=== PATIENT | female | born 1935 ===

== ENCOUNTER 2023-09-27 19:58 | Emergency (ER) | payer MEDICARE, MEDICAID, SELFPAY ==
--- NOTE | ~2023-09-27 | CT_ITS ---
EXAMINATION: CT head/brain wo IV con CLINICAL INFORMATION: Reason for Exam falls COMPARISON: None. TECHNIQUE: Contiguous axial imaging was performed from the skull base to vertex without intravenous contrast. Sagittal and coronal reformatted images were obtained. This CT examination was performed using dose optimization techniques as appropriate, variously including the following: * Automated exposure control * Adjustment of mA and/or kV according to patient size (this includes techniques or standardized protocols for targeted exams where dose is matched to indication/reason for exam; i.e. extremities or head) Use of iterative reconstruction technique DLP: 498.11 mGy-cm FINDINGS: Moderate global cerebral volume loss. Confluent periventricular and deep white matter hypoattenuation is nonspecific but likely reflects sequelae of advanced chronic microangiopathy. Age indeterminate lacunar infarcts within the right cerebellum and bilateral deep bustos nuclei which may be chronic can be correlated clinically for acute neurologic deficit and more definitively aged on MRI. No acute intracranial hemorrhage or extra-axial fluid collection. No mass lesion, significant mass effect, or herniation pattern. Dolichoectasia suggestive of chronic hypertension and scattered intracranial calcific atherosclerosis. Lens replacements. Complete dense opacification of an atelectatic right maxillary sinus with lateralized right uncinate process along the inferomedial right orbital wall and inferior descent of the right orbital floor with slight right-sided enophthalmus. Dependent mastoid effusions. Osseous structures are intact. CT/CT head/brain wo IV con IMPRESSION: 1. No CT evidence of acute intracranial injury. 2. Moderate volume loss and advanced white matter disease. Age indeterminate lacunar infarcts within the right cerebellum and bilateral deep bustos nuclei which may be chronic can be correlated clinically for acute neurologic deficit and more definitively aged on MRI. 3. Findings described above suggestive of right-sided silent sinus syndrome. ENT consultation advised.
[2023-09-27 20:03] VITALS: BP 130/90; PULSE 111; O2SAT 96
[2023-09-27 20:11] VITALS: BP 152/74; PULSE 99; RESP 18; TEMP 36.8; O2SAT 97; BMI 17.8
--- NOTE | 2023-09-27 20:15 | ED_ITS ---
HPI - General Adult General Chief complaint: Weakness Stated complaint: FALL WEAK Time Seen by Provider: 09/27/23 20:10 Source: patient and EMS Mode of arrival: EMS Limitations: altered mental status History of Present Illness ED Provider: otto REBOLLAR narrative: Patient 87 years old lives with her granddaughter been feeling increasingly weak falling 2nd fall in last 2 weeks family comes on about declining health in history of dementia patient fell about 2 times last 2 weeks lower down to the knee no head injury Related Data Allergies Allergy/AdvReac Type Severity Reaction Status Date / Time amoxicillin [AMOXICILLIN] Allergy Unknown UNKNOWN Verified 09/27/23 20:14 Review of Systems 2 Review of Systems: Yes all other systems are reviewed and are negative PMFSH Social History Social History Smoked in Last 30 Days: No Use of substances other than those prescribed or required for medical reasons: No Advance Directives: No Advance Directives Information Provided: No Do you have a plan to hurt others: No Plan Physical Exam ED Vital Signs: Vital Signs - 24 hr 09/27/23 20:11 09/27/23 21:48 09/27/23 23:18 Temperature 98.2 F 97.2 F 98.2 F Pulse Rate 99 89 81 Respiratory Rate 18 16 16 Blood Pressure 152/74 H 137/63 130/72 Pulse Oximetry 97 96 97 Oxygen Delivery Method Room Air Room Air Room Air BMI result Body Mass Index 17.8 Appearance: Alert. Oriented X3. No acute distress. Thin built Eyes: PERRLA, No Nystagmus hard of hearing ENT: Pharynx normal. Oral Mucosa moist Neck: Normal inspection. Neck supple. CVS: Normal heart rate and rhythm. Pulses normal. Respiratory: No respiratory distress. Equal air entry bilateral, no wheezing/rales/rhonchi Abdomen: Soft and nontender. Bowel sounds are present, no mass palpable, no CVA tenderness Skin: Skin warm and dry. Normal skin color. Normal skin turgor. Extremities: No lower extremity edema. No calf tenderness Neuro: Oriented X 3. No motor deficit. No sensory deficit.No cerebellar signs , cranial nerves II-XII intact Medications Administered Discontinued Medications Generic Name Dose Route Start Last Admin Trade Name Freq PRN Reason Stop Dose Admin Sodium Chloride 1,000 mls @ 999 mls/hr 09/27/23 21:36 09/27/23 22:51 Ns IV 09/27/23 22:36 Infused .Q1H1M ONE Infusion Medical Decision Making Medical Decision Making [facility] Narrative: Patient has frequent fall with history of dementia no signs of infection noticed will consult case management for placement Lab Data [facility] Lab Attestation statement: I reviewed the patient's lab results. 09/27/23 21:03 09/27/23 21:03 Labs: Lab Results 09/27/23 09/27/23 Range/Units 21:03 23:16 WBC 8.3 (4.8-10.8) X10*3/uL RBC 3.48 L (4.20-5.50) X10*6/uL Hgb 11.0 L (12.0-16.0) g/dl Hct 31.7 L (37.0-47.0) % MCV 91.1 (80.0-98.0) fL MCH 31.6 (27.0-33.0) pg MCHC 34.7 (31.0-35.0) g/dl RDW 13.4 (11.0-16.0) % Plt Count 268 (160-400) X10*3/uL MPV 9.7 (9.4-12.3) fL Immature Gran % (Auto) 0.7 H (0.0-0.4) % Neut % (Auto) 65.9 (45-73) % Lymph % (Auto) 19.0 L (20-40) % [place] % (Auto) 12.0 H (2-11) % Eos % (Auto) 2.0 (0-4) % Baso % (Auto) 0.4 (0-2) % Lymph # (Auto) 1.6 (1.2-4.9) X10*3/uL [place] # (Auto) 1.0 (0.1-1.2) X10*3/uL Eos # (Auto) 0.2 (0.0-0.4) X10*3/uL Baso # (Auto) 0.0 (0.0-0.2) X10*3/uL Abs Immat Gran (auto) 0.06 H (0.00-0.03) X10*3/uL Absolute Neuts (auto) 5.5 (2.0-8.3) x10*3/uL Absolute Nucleated RBC 0.000 (0.0-0.012) X10*3/uL Nucleated RBC % (auto) 0.0 (0.0-0.2) /100WBC Sodium 129 L (135-145) mmol/L Potassium 4.2 (3.3-5.1) mmol/L Chloride 90 L (96-108) mmol/L Carbon Dioxide 25 (22-29) mmol/L Anion Gap 18 (12-20) BUN 29 H (9-16) mg/dL Creatinine 1.13 (0.5-1.4) mg/dL Estim Creat Clear Calc 27.6 Estimated GFR 46 Random Glucose 176 H (60-115) mg/dL Calcium 9.9 (8.4-10.2) mg/dL Total Bilirubin 0.3 (0.0-1.0) mg/dL AST 20 (5-31) U/L ALT 15 (0-31) U/L Alkaline Phosphatase 49 (39-117) U/L Total Protein 7.2 (6.5-8.0) g/dL Albumin 4.0 (3.5-5.0) g/dL Urine Color Yellow Urine Appearance Clear Urine pH 8.0 (5.0-9.0) Ur Specific [place] 1.010 (1.005-1.025) Urine Protein Negative (Neg-Trace) mg/dL Urine Glucose (UA) Negative (Negative) mg/dL Urine Ketones Negative (Negative) mg/dL Urine Blood Negative (Negative) Urine Nitrite Negative (Negative) Ur Leukocyte Esterase Negative (Negative) Discharge Plan Discharge Clinical Impression: Dehydration, Weakness Patient Disposition: Still a Patient Print Language: Ukrainian
--- NOTE | 2023-09-27 20:21 | MHC.EDTECH ---
PATIENT WAS BIBA FROM HOME ,VITALS TAKEN ,PATIENT WAS CHANGE INTO HOSPITAL ATTIRE ,PATIENT WAS SOILED WITH LARGE AMOUNT OF LOOSE STOOL ,CARE GIVEN ,CALL MANN WITHIN PATIENT REACH .
--- NOTE | 2023-09-27 20:30 | MHC.EDTECH ---
LAZARO MORE IS AWARE THAT PATIENT COCCYX IS RED AND EXCORIATED ,PER RN ZACK WICK IN PLACE .
[2023-09-27 21:07] LABS: MANUAL DIFF FLAG NO
[2023-09-27 21:08] LABS: Basophils Percent Auto 0.4 % (0-2); Eosinophils Absolute Auto 0.2 X10*3/uL (0.0-0.4); Hematocrit 31.7 % (37.0-47.0); Imm Gran Abs Auto 0.06 X10*3/uL (0.00-0.03); Imm Gran Pct Auto 0.7 % (0.0-0.4); Lymphocytes Absolute Auto 1.6 X10*3/uL (1.2-4.9); Mean Corpuscular HGB Conc 34.7 g/dl (31.0-35.0); Mean Corpuscular Hemoglobin 31.6 pg (27.0-33.0); Mean Corpuscular Volume 91.1 fL (80.0-98.0); Mean Platelet Volume 9.7 fL (9.4-12.3); Neutrophils Absolute Auto 5.5 x10*3/uL (2.0-8.3); Neutrophils Percent Auto 65.9 % (45-73); Platelet Count 268 X10*3/uL (160-400); Red Blood Count 3.48 X10*6/uL (4.20-5.50); Red Cell Distribution Width 13.4 % (11.0-16.0); White Blood Count 8.3 X10*3/uL (4.8-10.8)
[2023-09-27 21:27] LABS: Alanine Aminotransferase 15 U/L (0-31); Alkaline Phosphatase 49 U/L (39-117); Anion Gap 18 (12-20); Aspartate Amino Transferase 20 U/L (5-31); Bilirubin Total 0.3 mg/dL (0.0-1.0); Blood Urea Nitrogen 29 mg/dL (9-16); Calcium 9.9 mg/dL (8.4-10.2); Carbon Dioxide 25 mmol/L (22-29); Chloride 90 mmol/L (96-108); Creatinine Clr Calc Pharmacy 27.6; Estimated Glomerular Filt Rate 46; Glucose Random 176 mg/dL (60-115); Potassium 4.2 mmol/L (3.3-5.1); Sodium 129 mmol/L (135-145); Total Protein 7.2 g/dL (6.5-8.0)
[2023-09-27] MEDS: 0.9 % Sodium Chloride 1,000 ML 999 ML IV (21:43)
[2023-09-27 21:48] VITALS: BP 137/63; PULSE 89; RESP 16; TEMP 36.2; O2SAT 96
--- NOTE | 2023-09-27 21:51 | MHC.EDTECH ---
2200 rounding done ,vitals taken ,patient drank a few sips of erasto estelita ,call gutierrez within patient reach .
[2023-09-27 23:18] VITALS: BP 130/72; PULSE 81; RESP 16; TEMP 36.8; O2SAT 97
--- NOTE | 2023-09-27 23:19 | MHC.EDTECH ---
0000 ROUNDING DONE ,VITALS TAKEN ,PATIENT WAS ASSISTED ASSISTED UNTO BEDPAN,URINE SAMPLE COLLECTED AND SENT TO LAB ,PATIENT AWAKE WATCHING TELEVISION .
[2023-09-27 23:22] LABS: Appearance Urine Clear; Color Urine Yellow; Glucose Urine UA Negative (Negative); Leukocyte Esterase Urine Negative (Negative); Nitrite Urine Negative (Negative); Urine Blood Negative (Negative); Urine Ketones Negative (Negative); Urine Protein Negative (Neg-Trace)
--- NOTE | 2023-09-28 02:09 | MHC.EDTECH ---
0200 ROUNDING DONE ,800 ML URINE EMPTY FROM PURE WICK ,PATIENT AWAKE WATCHING TELEVISION ,PATIENT WAS REPOSITION AND BOOSTED UP IN BED .
[2023-09-28 05:35] VITALS: BP 152/72; PULSE 80; RESP 16; TEMP 36.3; O2SAT 98
--- NOTE | 2023-09-28 05:37 | MHC.EDTECH ---
0600 rounding done ,vitals taken ,patient was incontinent of urine ,care given ,900 ml empty from purewick ,Patient was awake most of the night .
--- NOTE | 2023-09-28 06:28 | PC.NURSE ---
RN spoke via phone to Alyssa Booker, primary healthcare architect for pt. RP stated she could not come in to see the patient and forgot to call RE the patient when she was initially brought to ED. RP did not know who the HCP was for the pt, or if pt even had an HCP. Per RP, pt has had additional instability, weakness and falls over past month, as well as refusing to urinate during the day, but saturating briefs at night, including BM's of normal quality. Gave phone number of [phone]
[2023-09-28 08:13] VITALS: BP 166/79; PULSE 91; RESP 13; TEMP 36.4; O2SAT 98
[2023-09-28 09:55] LABS: COVID-19 Test Negative (Negative); IDNOW Serial# 152EDE1D
[2023-09-28 11:55] VITALS: O2SAT 94
--- NOTE | 2023-09-28 12:50 | MHC.CM.ED ---
Received case management consult overnight. Patient came to the ER due to a fall. Work up indicated dehydration. Patient received IVF. No reason to admit. Phyiscal therapy eval completed. 15/11 supervision is recommended. Attempted to meet with patient in regards to discharge planning. Patient has advanced dementia. Copy of HCP obtained from [facility]. Attempted to speak with 1st HCP/nephew, Dwayne via telephone at [phone]. Left voicemail requesting return telephone call. Spoke with patient's 2nd HCP/niece, Alyssa, via telephone at [phone]. Patient lives with Alyssa, uses a walker for mobility and had no services prior to coming to the ER. PCP verified as Chana Martin in [place]. Alyssa aware of clinical findings and physical therapy recommendations. Alyssa also aware patient only has [employer] Buy-in, which will not cover long-term care. Patient does not have the funds to privately pay. Alyssa agreeable to patient returning home with [facility] referral. Jaret BLANTON booked for 430pm. Med nec with chart. Patient, Radha Shah RN and Suri PHILLIPS aware. Continue to monitor for d/c needs.
[2023-09-28 17:11] VITALS: BP 166/97; PULSE 98; RESP 16; TEMP 36.4; O2SAT 97
== END 2023-09-28 17:12 | disposition home or self-care (01) ==
PROVIDERS: Physician Assistant; Emergency Provider Internal Medicine; PCP Internal Medicine
DX: R53.1 Weakness (principal); E86.0 Dehydration; R29.6 Repeated falls; R26.89 Other abnormalities of gait and mobility; F03.90 Unspecified dementia, unspecified severity, without behavioral disturbance, psychotic disturbance, mood disturbance, and anxiety; Z91.81 History of falling; Z11.52 Encounter for screening for COVID-19
CPT/HCPCS: 36415; 70450; 80053; 81003; 85025; 87635; 97162; 99285

== ENCOUNTER 2024-04-05 14:55 | Outpatient (AMB) | payer MEDICARE, SELFPAY ==
--- OUTSIDE RECORDS SUMMARY | 2024-04-05 15:06 | XMS_ITS | Continuity of Care Document ---
Author Organization [facility] ter Address [address] [place] [address]- Care Team Providers Care Straight Ruling Machine Operator Name Role Phone Ortega Triplett DO Primary Care Physician [id number] Date(s): 01/24/24 - 03/29/[address] [address]- Attending Physician: Ortega Triplett DO Admitting Physician: Ortega Triplett DO Referring Physician: Ortega Triplett DO Encounter Type: Pre-Outpt Allergies, Adverse Reactions, Alerts Substance Criticality Severity Reaction Reaction Severity Status penicillins Active Medications amLODIPine 5 mg oral tablet 5 mg, 1, tablet, By Mouth, Daily, Refills 0, Maintenance, 06/09/20 11:50:00 AM EST, Partial fill upon patient request if the prescription is for a schedule II opioid drug. Start Date: 06/09/20 Status: Ordered Repeat number: 1 aspirin 81 mg oral tablet 1 tablet = 81 mg, By Mouth, Daily, # 90 tablet, 0 Refills, Maintenance, 04/05/18 1:44:21 PM EST, Tablet Start Date: 04/05/18 Status: Ordered Quantity: 90.0 Unit: tablet Repeat number: 1 atorvastatin 40 mg oral tablet 1 tablet = 40 mg, By Mouth, Daily, 0 Refills, Maintenance, 06/09/20 10:26:00 AM EST, Tablet, Partialfill upon patient request if the prescription is for a schedule II opioid drug. Start Date: 06/09/20 Status: Ordered Repeat number: 1 Depakote ER 250 mg oral tablet, extended release 1 tablet = 250 mg, By Mouth, Daily at supper, for , # 90 tablet, 1 Refills, Maintenance, 08/23/21 2:53:00 PM EDT, ER Tablet, [id number], Partial fill upon patient request if the prescription is for a schedule II opioid drug., 160, cm, 06/09/20 11:06:00 EST, Height, 52.4, kg, 05/29/20 5:34:00 EST, Dry Weight Start Date: 08/23/21 Stop Date: 02/19/22 Status: Ordered Quantity: 90.0 Unit: tablet Repeat number: 2 LORazepam 0.5 mg oral tablet TAKE 1/2 (ONE-HALF) TABLET BY MOUTH ONCE DAILY NEEDED FOR AGITATION . UP TO 12 TIMES PER MONTH Start Date: 01/09/23 Status: Ordered Repeat number: 1 losartan 50 mg oral tablet 1 tablet = 50 mg, By Mouth, Daily, # 30 tablet, 0 Refills, Maintenance, 01/09/23 9:54:00 PM EDT, Tablet, Partial fill upon patient request if the prescription is for a schedule II opioid drug. Start Date: 01/09/23 Status: Ordered Quantity: 30.0 Unit: tablet Repeat number: 1 metFORMIN 850 mg oral tablet 1 tablet = 850 mg, By Mouth, 2 times a day, # 60 tablet, 0 Refills, Maintenance, 01/09/23 9:54:00 PMEDT, Tablet, Partial fill upon patient request if the prescription is for a schedule II opioid drug. Start Date: 01/09/23 Status: Ordered Quantity: 60.0 Unit: tablet Repeat number: 1 traZODone 100 mg oral tablet 100 mg, 1, tablet, By Mouth, Daily at bedtime, TAKE 1 TABLET BY MOUTH AT BEDTIME Start Date: 01/09/23 Status: Ordered Repeat number: 1 traZODone 50 mg oral tablet 25 mg, 0.5, tablet, By Mouth, 2 times a day, PRN, Refills 0, Maintenance, Agitation, 06/09/20 10:26:00 AM EST, Partial fill upon patient request if the prescription is for a schedule II opioid drug. Start Date: 06/09/20 Status: Ordered Repeat number: 1 Problem List Condition Confirmation Course Effective Dates Status H ealth Status Informant Cerebral brain hemorrhage Confirmed Active Dementia Confirmed Active Diabetes mellitus Confirmed Active HLD (hyperlipidemia) Confirmed Active HTN (hypertension) Confirmed Active Hypochloremia Confirmed Active Hypomagnesemia Confirmed Active Underweight Confirmed Active Social History Social History Type Response Smoking Status Never (less than 100 in lifetime) entered on: 04/05/18 Sex Sex Representation Female (finding) Patient Care team information Care Team Personnel Name: Marta Malagon RN Position: S RN Member Role: Primary Care Nurse Name: Julian Jeffery RN Position: S RN Member Role: Primary Care Nurse Name: Laura Saha RN Position: S RN Supv Member Role: Primary Care Nurse Name: Leti Stubbs RN Position: S RN Member Role: Primary Care Nurse Name: Belen Cesar RN Position: S RN Member Role: Primary Care Nurse Name: Nia Fox RN Position: S RN Member Role: Primary Care Nurse Name: Ortega Triplett DO Position: S Outreach Member Role: PCP Address: [address] [place] [address] [address] [place] [address]- Telecom: Name: Sarina Davidson RN Position: [facility] RN Supv Member Role: Primary Care Nurse Name: Jim Hamilton MD Position: S Outreach Member Role: Lifetime Consulting Physician Address: [address] [facility] [address] [facility] [place] [address]- [place] Telecom: Care Team Related Persons Name: DEE DEE JIMÉNEZ Name: LORA JIMÉNEZ Insurance Providers Guarantor name: JACQUES JESSY Health Plan Information #: 1 Payer: MEDICARE PART B OUTPT Member Number: [id number] Policy Number: NA Group Number: NA Health Plan Information #: 2 Payer: MEDEX Member Number: [id number] Policy Number: NA Group Number: NA
--- NOTE | 2024-04-05 15:07 | A.OFFVIS_ITS ---
Intake Visit Reasons: urinary incontinence Intake Note: New Patient presents for initial visit for urinary incontinence Urology Medications: none Blood Thinner: none PVR: 429ml's Deputy [employer] [place] Marshal Required: No Accompanied by: Unknown Allergies amoxicillin [AMOXICILLIN] Allergy (Unknown, Verified 04/06/24 20:32) UNKNOWN Medication List - Last Reconciled 04/05/24 by JUAN ALBERTO Funes amlodipine 5 mg PO DAILY atorvastatin 40 mg PO DAILY divalproex ER 250 mg PO DAILY lorazepam 0.25 mg PO DAILY PRN losartan 50 mg PO DAILY metformin 850 mg PO BID trazodone mg PO HPI Comments Details: Coco is a pleasantly confused 88-year-old female patient who was accompanied by her niece/crab meat processor at today's office visit. She has a past medical history of hemorrhagic stroke, carotid artery stenosis, chronic kidney disease, left ventricular hypertrophy, osteoporosis, vitamin B12 deficiency, hyperlipidemia, hypertension, and diabetes. She presents to the office today as a new patient for ongoing lower urinary tract symptoms. In discussion with the patient and her niece today she reports to be experiencing episodes of incontinence despite timed/scheduled voiding. She also reports noting foul- smelling urine. She otherwise denies urinary urgency, urinary frequency, hematuria, dysuria, changes to urinary stream, flank pain, fever, and or chills. Patient was unable to void for urinalysis PVR was obtained and noted to be 429 mL. The patient was straight cath for urine sample to further assess urinary tract infection. Urinalysis results were reviewed negative nitrates and negative leukocytes. We discussed incomplete bladder emptying/overflow incontinence. Discussed obtaining retroperitoneal ultrasound for further assessment evaluation. We also discussed possible near future in office cystoscopy and or urodynamics for further assessment evaluation. [facility] Medical History Hemorrhagic stroke Carotid artery stenosis Thyroid nodule CKD (chronic kidney disease) LVH (left ventricular hypertrophy) Osteoporosis Vitamin B12 deficiency Hyperlipidemia Hypertension Diabetes mellitus Social History Advance Directives Date on File: 09/28/23 Review of Systems Const Unobtainable due to mental status Physical Exam Const General: cooperative, comfortable, no acute distress, well developed, alert and awake Orientation/consciousness: oriented to person Limitations: wheelchair HEENT Head: Yes normal to inspection, Yes normocephalic and Yes atraumatic Ears: hearing grossly normal bilaterally Eyes General: appearance normal, both eyes and all related structures Neck Neck: Yes normal visual inspection and Yes trachea midline Chest Chest palpation & inspection: normal inspection of the chest Resp Effort & Inspection: normal respiratory effort and able to speak in complete sentences Cardio Rate: regular rate GI Inspection: Yes normal to inspection General: Yes no CVA tenderness Back/Spine/Pelvis Back: no CVA tenderness Skin General skin exam: no rashes or lesions noted Neuro General: oriented to person Extrem General: Yes normal to inspection Psych Appearance: grossly normal and well kempt Mental Status: other (Pleasantly confused) Speech and movement: Clear speech present Affect: normal affect Attitude: cooperative Insight: Limited insight present (Psych) Judgement: Limited judgement present (Psych) Office Procedures Bladder/Catheter Procedure Details: 14fr straight catheter used to empty bladder to obtain urine sample. 14fr straight catheter inserted, patient tolerated well. Drained approximately 400mls from bladder. Urine obtained for UA. [id number] Temporary Bladder Catheter Procedure code (CPT) selection complete Post Void Residual Post Residual Void Post Void Residual (PVR): 429 [id number] Void Residual by ultrasound Results AMB Urinalysis, Automated UA Leukoctes 0 Erma/uL Last Edit by Ricardo Jaramillo LPN on 04/05/24 16:05 UA Nitrite Negative Last Edit by Ricardo Jaramillo LPN on 04/05/24 16:05 UA Urobilinogen 0.2 mg/dL Last Edit by Ricardo Jaramillo LPN on 04/05/24 16:05 UA Protein 0 mg/dL Last Edit by Ricardo Jaramillo LPN on 04/05/24 16:05 UA pH 7.0 Last Edit by Ricardo Jaramillo LPN on 04/05/24 16:05 UA Blood 0 Johan/uL Last Edit by Ricardo Jaramillo LPN on 04/05/24 16:05 UA Specific [place] 1.010 Last Edit by Ricardo Jaramillo LPN on 04/05/24 16:05 UA Ketone Negative Last Edit by Ricardo Jaramillo LPN on 04/05/24 16:05 UA Bilirubin 0 mg/dL Last Edit by Ricardo Jaramillo LPN on 04/05/24 16:05 UA Glucose 0 mg/dL Last Edit by Ricardo Jaramillo LPN on 04/05/24 16:05 Results Reviewed Results Reviewed: Laboratory Last Values Urine pH (Auto) 7.0 04/05/24 16:03 Specific [place] (Auto) 1.010 04/05/24 16:03 Urine Protein (Auto) 0 mg/dL 04/05/24 16:03 Glucose (UA)(Auto) 0 mg/dL 04/05/24 16:03 Urine Ketones (Auto) Negative 04/05/24 16:03 Urine Blood (Auto) 0 Johan/uL 04/05/24 16:03 Urine Nitrite (Auto) Negative 04/05/24 16:03 Urine Bilirubin (Auto) 0 mg/dL 04/05/24 16:03 Urine Urobilinogen (Auto) 0.2 mg/dL 04/05/24 16:03 Leukocyte Esterase (Auto) 0 Erma/uL 04/05/24 16:03 Assessment & Plan Assessment & Plan (1) Incomplete bladder emptying: Code(s): R33.9 - Retention of urine, unspecified Category: Medical (2) Overflow incontinence: Code(s): N39.490 - Overflow incontinence Category: Medical Plan In office urinalysis results reviewed with the patient today; as noted above. Straight cath was performed to obtain urinalysis for further assessment evaluation. We discussed at length causes and affects of incomplete bladder emptying/overflow incontinence. Start terazosin 1 mg at bedtime. We discussed possible near future in office cystoscopy and or urodynamics for further assessment evaluation. Will obtain retroperitoneal ultrasound for further assessment evaluation. We discussed further treatment options and risks and benefits of these treatment options. Follow-up in 1-3 months with imaging and PVR; or sooner with any issues, concerns, and or questions. Orders: Orders AMB Urinalysis Automated 04/05/24 R33.9 - Retention of urine, unspecified AMB Bladder/Catheter Procedure 04/05/24 R33.9 - Retention of urine, unspecified AMB Post Void Residual by ultrasound 04/05/24 Z13.9 - Encounter for screening, unspecified US retroperitoneal comp 04/05/24 R33.9 - Retention of urine, unspecified Medications: New terazosin 1 mg PO BEDTIME 30 caps 3RF 30 days R39.12 - Poor urinary stream Patient Instructions: The patient had an opportunity to ask questions regarding the treatment plan. All questions were answered. Physical exam, labs, and imaging were discussed and reviewed in detail. As well as risks, benefits, and discussion of treatment choices. No major barriers to understanding were identified. The patient expressed understanding and agreement with the above treatment plan. The patient was made aware they should contact our office by phone for worsening of their current condition, the appearance of new symptoms, or with any questions or concerns. Compliance is encouraged with any medications and follow up testing that is ordered. It is a privilege to be allowed the opportunity to participate in? your urological care.? Again, if you have any questions or concerns If you have any questions or concerns please do not hesitate to contact me. The office is [phone]. This note is constructed using voice recognition software. While every effort has been made to ensure accuracy mass spectrometry specialist errors may have been included. Yours sincerely, JUAN ALBERTO Funes Coding Level of Care Code New Pt Level 4 (19900) Diagnoses Incomplete bladder emptying R33.9 Overflow incontinence N39.490 CPT Codes Bladder/Catheter Procedure - CPT: 99512-Qaadzj Temporary Bladder Catheter ([id number]) Post Residual Void - PVR CPT Code: 28422-Qhyq Void Residual by ultrasound ([id number])
== END 2024-04-05 16:26 | disposition home or self-care (01) ==
PROVIDERS: Visit Provider Nurse Practitioner Family
DX: R33.9 Retention of urine, unspecified (principal)
CPT/HCPCS: 51702; 99204

== ENCOUNTER → 2024-04-05 14:55 | Outpatient (BNVA) | payer MEDICARE, SELFPAY | PROVIDERS: Visit Provider Nurse Practitioner Family | DX: N39.490 Overflow incontinence (principal); R33.9 Retention of urine, unspecified | CPT/HCPCS: 51702; 51798; 81003; 99202 ==

== ENCOUNTER 2024-04-19 14:51 | Outpatient (REF) | payer MEDICARE, SELFPAY ==
--- OUTSIDE RECORDS SUMMARY | 2024-04-19 14:54 | XMS_ITS | Continuity of Care Document ---
Author Organization [facility] [address] [place] [address] Phone [phone] Social History Type Date Description Comments Sex Unknown Medical Devices Description No Information Available Encounters Description No Information Available Assessments Description No Information Available Plan of Treatment No Information Available Functional Status Description No Information Available Mental Status Description No Information Available Referrals Description No Information Available
== END 2024-04-19 14:52 | disposition home or self-care (01) ==
LOC: HO.US 14:51
PROVIDERS: PCP Internal Medicine; Visit Provider Nurse Practitioner Family
DX: R33.9 Retention of urine, unspecified (principal)
CPT/HCPCS: 76770

== ENCOUNTER → 2024-04-19 14:55 | Outpatient (BNV) | payer MEDICARE, SELFPAY | PROVIDERS: PCP Internal Medicine; Visit Provider Radiology Diagnostic Radiology | DX: R33.9 Retention of urine, unspecified (principal) | CPT/HCPCS: 76770 ==

== ENCOUNTER 2024-05-20 10:25 | Inpatient (IN) | payer MEDICARE, SELFPAY ==
[2024-05-20] VITALS (10 sets, daily range): BP systolic 103–183; BP diastolic 63–101; PULSE 92–148; RESP 16–24; TEMP 36.1–36.7; O2SAT 95–98; BMI 19.1; BMI 18.4
--- NOTE | 2024-05-20 | ECG_ITS ---
Test Reason : tacy Blood Pressure : */* mmHG Vent. Rate : 92 BPM Atrial Rate : * BPM P-R Int : * ms QRS Dur : 72 ms QT Int : 396 ms P-R-T Axes : * 32 49 degrees QTcB Int : 489 ms Artifact in tracing Normal sinus rhythm Premature atrial complexes Abnormal ECG When compared with ECG of 28-Nov-2015 13:08, No significant changes seen Referred By: Kt Avila Electronically Signed By: DAVID ASHRAF
--- NOTE | 2024-05-20 11:10 | PC.NURSE ---
Pt's vs stable at time of arrival; pt having rigors and c/o feeling cold; rectal temp 98, pt feels slightly warm to touch; pt straight cath'd for UA; 700ml cloudy urine out; no smell of bleach noted on or around pt; no visible trejo/redness to oral or nasal mucosa; pt not c/o of N/V/pain to throat; Poison Control Center contacted to report possible exposure/ingestion of bleach; this RN spoke with Edd at ; direct number provided to Dr Avila; awaiting any orders after poison control consult by MD; pt resting quietly in no distress with exception of rigors; will monitor/tx per orders
--- OUTSIDE RECORDS SUMMARY | 2024-05-20 11:18 | XMS_ITS | Continuity of Care Document ---
Author Organization [facility] [address] [place] [address] Phone [phone] Social History Type Date Description Comments Sex Unknown Medical Devices Description No Information Available Encounters Description No Information Available Assessments Description No Information Available Plan of Treatment No Information Available Functional Status Description No Information Available Mental Status Description No Information Available Referrals Description No Information Available
--- OUTSIDE RECORDS SUMMARY | 2024-05-20 11:18 | XMS_ITS | Clinical Summary ---
Author Organization [facility] it Address [address] [place] [address] Care Team Providers Care Bird Sitter Name Role Phone Unavailable Primary Care Provider Unavailabl e Social History Tobacco Use Types Packs/Day Years Used Date Smoking Tobacco: Never Assessed Sex and Gender Information Value Date Recorded Sex Assigned at Not on file Gender Identity Not on file Sexual Orientation Not on file Plan of Treatment Health Maintenance Due Date Last Done Comments DTaP,Tdap,and Td Vaccines (1 - Tdap) 10/06/1954 Zoster Vaccines (1 of 2) 10/06/1985 Pneumococcal Vaccine: 65+ Ye ars (1 of 1 - PCV) 10/06/2000 RSV Immunization Patients 60 + Years Old (1 - 1-dose 75+ series) 10/06/2010 Depression Screening 03/27/2022 Falls Risk Assessment 03/27/2022 Osteoporosis Screening (Bone Density Screening) 03/27/2022 Social Influencers of Health Screening 03/27/2022 COVID-19 Vaccine ( - 2023-2 5 season) 2023 Influenza Vaccine (#1) 2023 HIB Vaccines Aged Out No longer eligi ble based on patient's age to complete this topic HPV Vaccines Aged Out No longer eligi ble based on patient's age to complete this topic Hepatitis A Vaccines Aged Out No long er eligible based on patient's age to complete this topic Hepatitis B Vaccines Aged Out No long er eligible based on patient's age to complete this topic IPV Vaccines Aged Out No longer eligi ble based on patient's age to complete this topic MMR Vaccines Aged Out No longer eligi ble based on patient's age to complete this topic Meningococcal ACWY Vaccine Aged Out N o longer eligible based on patient's age to complete this topic RSV Immunization Patients Un colleen 20 months Aged Out No longer eligible b ased on patient's age to complete this topic Varicella Vaccines Aged Out No longer eligible based on patient's age to complete this topic
[2024-05-20 11:25] LABS: MANUAL DIFF FLAG NO
[2024-05-20 11:27] LABS: Appearance Urine Cloudy; Color Urine Yellow; Glucose Urine UA Negative (Negative); Leukocyte Esterase Urine Large (3+) (Negative); Nitrite Urine Positive (Negative); PH 5.5 (5.0-9.0); Specific Gravity - Urine <= 1.005 (1.005-1.025); UMIC TRIGGER UACC YES; Urine Blood Trace (Negative); Urine Ketones Negative (Negative); Urine Protein Trace mg/dL (Neg-Trace)
[2024-05-20 11:28] LABS: Basophils Percent Auto 0.3 % (0-2); Eosinophils Absolute Auto 0.1 X10*3/uL (0.0-0.4); Eosinophils Percent Auto 0.9 % (0-4); Hematocrit 28.2 % (37.0-47.0); Hemoglobin 9.7 g/dl (12.0-16.0); Imm Gran Abs Auto 0.09 X10*3/uL (0.00-0.03); Imm Gran Pct Auto 0.8 % (0.0-0.4); Lymphocytes Percent Auto 9.1 % (20-40); Mean Corpuscular HGB Conc 34.4 g/dl (31.0-35.0); Mean Corpuscular Hemoglobin 30.8 pg (27.0-33.0); Mean Corpuscular Volume 89.5 fL (80.0-98.0); Mean Platelet Volume 9.2 fL (9.4-12.3); Monocytes Percent Auto 9.6 % (2-11); Neutrophils Absolute Auto 8.4 x10*3/uL (2.0-8.3); Neutrophils Percent Auto 79.3 % (45-73); Platelet Count 345 X10*3/uL (160-400); Red Blood Count 3.15 X10*6/uL (4.20-5.50); Red Cell Distribution Width 13.8 % (11.0-16.0); White Blood Count 10.6 X10*3/uL (4.8-10.8)
[2024-05-20 11:32] LABS: Bacteria Urine 4+ (None Seen); Hyaline Casts Urine 0-2 /LPF (0-2); RBC Urine 0-2 /HPF (0-2); Squamous Epithelial Cell Urine 0-2 /HPF (0-2); UACC Culture Trigger YES; WBC Urine >50 /HPF (0-5)
[2024-05-20 11:43] LABS: Anion Gap 17 (12-20); Blood Urea Nitrogen 23 mg/dL (9-16); Calcium 9.2 mg/dL (8.4-10.2); Carbon Dioxide 21 mmol/L (22-29); Chloride 95 mmol/L (96-108); Creatinine Clr Calc Pharmacy 26.6; Estimated Glomerular Filt Rate 49; Glucose Random 155 mg/dL (60-115); Potassium 3.8 mmol/L (3.3-5.1); Sodium 129 mmol/L (135-145)
[2024-05-20 11:43] LABS: Lactic Acid 2.9 mmol/L (0.5-2.0)
[2024-05-20 11:47] LABS: Amphetamine Screen Urine Not Detected (Not Detect); Barbiturates, Urine Not Detected (Not Detect); Benzodiazepines Screen Urine Not Detected (Not Detect); Buprenorphine Scr Not Detected (Not Detect); Cannabinoid Screen Urine Not Detected (Not Detect); Cocaine Screen Urine Not Detected (Not Detect); Fentanyl, urine Not Detected (Not Detect); Methadone Screen, Urine Not Detected (Not Detect); Opiate Screen Urine Not Detected (Not Detect); Oxycodone Screen Urine Not Detected (Not Detect); Phencyclidine Screen Urine Not Detected (Not Detect)
[2024-05-20 11:48] LABS: Salicylate < 5.0 mg/dL (15-30)
[2024-05-20 11:52] LABS: Troponin-I High Sensitivity 9.5 ng/L (<3.5-17.0)
[2024-05-20 11:57] LABS: Influenza A PCR NEGATIVE (Negative); Influenza B PCR NEGATIVE (Negative); Resp Syncy Virus RNA Qual PCR NEGATIVE (Negative); SARS COV2 PCR INHOUSE NEGATIVE (Negative)
[2024-05-20] MEDS: Acetaminophen Supp 650 MG SUPP.RECT PR (12:15)
[2024-05-20] MEDS: 0.9 % Sodium Chloride 1,000 ML 999 ML IV (13:14)
[2024-05-20 13:16] LABS: Reflex Lactate? Lactic Acid Added
--- NOTE | 2024-05-20 13:18 | ED.GENADULT ---
HPI - General Adult General Chief complaint: General Medical Stated complaint: INGESTED BLEACH Time Seen by Provider: 05/20/24 10:41 Source: EMS Mode of arrival: EMS Limitations: other (dementia) History of Present Illness HPI narrative: This is 88 years old demented patient unable to give any history. She lives home with the family, he was found in the basement by the family with a container of bleach but no bleed she was missing from the container. Again the patient is unable to give any history because of the dementia. Per family she has been more confused than usual Onset (ago): hour(s) (5) Radiation: non-radiation Severity: moderate Relieving factors: none Exacerbating factors: none Associated symptoms: denies other symptoms Related Data Home Medications ?Medication ?Instructions ?Recorded ?Confirmed amlodipine 5 mg tablet 5 mg PO DAILY 03/28/24 atorvastatin 40 mg tablet 40 mg PO DAILY 03/28/24 divalproex 250 mg tablet,extended 250 mg PO DAILY 03/28/24 release 24 hr lorazepam 0.5 mg tablet 0.25 mg PO DAILY PRN 03/28/24 losartan 50 mg tablet 50 mg PO DAILY 03/28/24 metformin 850 mg tablet 850 mg PO BID 03/28/24 trazodone 50 mg tablet mg PO 03/28/24 Previous Rx's ?Medication ?Instructions ?Recorded terazosin 1 mg capsule 1 mg PO BEDTIME 30 days #30 caps 04/05/24 Allergies Allergy/AdvReac Type Severity Reaction Status Date / Time amoxicillin [AMOXICILLIN] Allergy Unknown UNKNOWN Verified 05/20/24 11:05 Review of Systems Review of Systems: Yes Unobtainable due to mental status PMFSH Past Medical History Attestation statement: The following information was validated with the patient. Reminder: Dementia Medical History Hemorrhagic stroke Carotid artery stenosis Thyroid nodule CKD (chronic kidney disease) LVH (left ventricular hypertrophy) Osteoporosis Vitamin B12 deficiency Hyperlipidemia Hypertension Diabetes mellitus Social History Social History Unable to assess alcohol history related to: Unknown Smoked in Last 30 Days: No Use of substances other than those prescribed or required for medical reasons: Unable to respond Advance Directives: Yes Advance Directives on File: Yes Advance Directives Date on File: 09/28/23 Do you have a plan to hurt others: No Plan Physical Exam ED Vital Signs: Vital Signs - 24 hr 05/20/24 10:58 05/20/24 11:04 05/20/24 11:10 Temperature 98 F 98 F 98 F Pulse Rate 98 92 92 Respiratory Rate 19 18 18 Blood Pressure 139/89 146/70 H 146/70 H Pulse Oximetry 97 Oxygen Delivery Method Room Air 05/20/24 13:38 Temperature 96.9 F Pulse Rate Respiratory Rate Blood Pressure Pulse Oximetry Oxygen Delivery Method BMI result Body Mass Index 18.4 No acute distress looks well not toxic Const General: comfortable Nutritional Appearance: well nourished Orientation/consciousness: Other orientation findings (Disoriented to place and time) HENMT Head: Yes normal to inspection Ears: hearing grossly normal bilaterally General nose exam: Normal external nose present Face and sinus: Yes normal facial exam Mouth: Normal oral and palatal mucosa present Throat: Yes posterior oropharynx normal Neck Neck: Yes normal visual inspection Chest Chest palpation & inspection: normal inspection of the chest Resp Effort & Inspection: normal respiratory effort Auscultation: clear to auscultation bilaterally Cardio Jugular venous distension: no JVD Rate: regular rate Rhythm: regular rhythm GI Inspection: Yes normal to inspection Palpation (GI): Soft to palpation, not firm and nontender Auscultation: normal bowel sounds Skin General skin exam: no rashes or lesions noted Neuro Other: No focal disoriented to times place Course Reevaluation(s) Reevaluation #1: Patient remained stable, normotensive BP 139/89 at arrival repeated at 146/70 no tachycardia no fever reported, she does have evidence of UTI, she also has a lactic acidosis. Fluid the been order antibiotic as well I gave a Levaquin because she has an allergy to amoxicillin and she can not tell me what kind of allergy Time: 13:43 Reevaluation #2: repeat lactic 1.4 spoke with poison control also possible ingestion bleach ,no treatment. GI consult is vomiting or abdominal pain Time: 14:25 Medications Administered Discontinued Medications Generic Name Dose Route Start Last Admin Trade Name Freq PRN Reason Stop Dose Admin Acetaminophen 650 mg 05/20/24 11:20 05/20/24 12:15 Acetaminophen Supp 650 Mg Supp.Rect RI 05/20/24 11:21 650 mg ONCE STA Administration Sodium Chloride 1,000 mls @ 999 mls/hr 05/20/24 12:45 05/20/24 13:14 Ns IV 05/20/24 13:45 999 mls/hr .[id number] JESSEE Administration Levofloxacin 500 mg in 100 mls @ 100 mls/hr 05/20/24 13:17 05/20/24 13:38 Levaquin IV 05/20/24 14:16 100 mls/hr ONCE ONE Administration Medical Decision Making Medical Decision Making MDM Narrative: Patient here with increasing confusion we will check labs urine and reassess Differential Diagnosis Differential Diagnoses: The differential diagnosis associated with the presentation includes Electrolytes abnormality/urinary tract infection Admission/Observation Consideration of admission/observation: Escalation of care including admission/observation considered Consult Healthcare Provider Management of the patient was discussed with: Hospitalist Dr Joiner Lab Data [facility] Lab Attestation statement: I reviewed the patient's lab results. 05/20/24 11:19 05/20/24 11:18 Labs: Lab Results 05/20/24 05/20/24 05/20/24 Range/Units 11:09 11:18 11:19 WBC 10.6 (4.8-10.8) X10*3/uL RBC 3.15 L (4.20-5.50) X10*6/uL Hgb 9.7 L (12.0-16.0) g/dl Hct 28.2 L (37.0-47.0) % MCV 89.5 (80.0-98.0) fL MCH 30.8 (27.0-33.0) pg MCHC 34.4 (31.0-35.0) g/dl RDW 13.8 (11.0-16.0) % Plt Count 345 D (160-400) X10*3/uL MPV 9.2 L (9.4-12.3) fL Immature Gran % (Auto) 0.8 H (0.0-0.4) % Neut % (Auto) 79.3 H (45-73) % Lymph % (Auto) 9.1 L (20-40) % [place] % (Auto) 9.6 (2-11) % Eos % (Auto) 0.9 (0-4) % Baso % (Auto) 0.3 (0-2) % Lymph # (Auto) 1.0 L (1.2-4.9) X10*3/uL [place] # (Auto) 1.0 (0.1-1.2) X10*3/uL Eos # (Auto) 0.1 (0.0-0.4) X10*3/uL Baso # (Auto) 0.0 (0.0-0.2) X10*3/uL Abs Immat Gran (auto) 0.09 H (0.00-0.03) X10*3/uL Absolute Neuts (auto) 8.4 H (2.0-8.3) x10*3/uL Absolute Nucleated RBC 0.000 (0.0-0.012) X10*3/uL Nucleated RBC % (auto) 0.0 (0.0-0.2) /100WBC Hold Blue Top Sodium 129 L (135-145) mmol/L Potassium 3.8 (3.3-5.1) mmol/L Chloride 95 L (96-108) mmol/L Carbon Dioxide 21 L (22-29) mmol/L Anion Gap 17 (12-20) BUN 23 H (9-16) mg/dL Creatinine 1.05 (0.5-1.4) mg/dL Estim Creat Clear Calc 26.6 Estimated GFR 49 Random Glucose 155 H (60-115) mg/dL Lactic Acid 2.9 H* (0.5-2.0) mmol/L Lactic Acid F/U @ 2Hr (0.5-2.0) mmol/L Calcium 9.2 D (8.4-10.2) mg/dL Troponin I High Sens 9.5 (<3.5-17.0) ng/L Urine Color Yellow Urine Appearance Cloudy Urine pH 5.5 (5.0-9.0) Ur Specific [place] <= 1.005 (1.005-1.025) Urine Protein Trace (Neg-Trace) mg/dL Urine Glucose (UA) Negative (Negative) mg/dL Urine Ketones Negative (Negative) mg/dL Urine Blood Trace H (Negative) Urine Nitrite Positive H (Negative) Ur Leukocyte Esterase Large (3+) H (Negative) Urine RBC 0-2 (0-2) /HPF Urine WBC >50 H (0-5) /HPF Ur Squamous Epith Cells 0-2 (0-2) /HPF Urine Bacteria 4+ (None Seen) Hyaline Casts 0-2 (0-2) /LPF Salicylates < 5.0 L (15-30) mg/dL Urine Opiates Screen Not Detected (Not Detect) Ur Buprenorphine Scrn Not Detected (Not Detect) ng/mL Ur Oxycodone Screen Not Detected (Not Detect) ng/mL Urine Methadone Screen Not Detected (Not Detect) ng/mL Urine Fentanyl Screen Not Detected (Not Detect) Ur Barbiturates Screen Not Detected (Not Detect) Ur Phencyclidine Scrn Not Detected (Not Detect) Ur Amphetamines Screen Not Detected (Not Detect) U Benzodiazepines Scrn Not Detected (Not Detect) Urine Cocaine Screen Not Detected (Not Detect) U Marijuana (THC) Screen Not Detected (Not Detect) Influenza Type A (PCR) NEGATIVE (Negative) Influenza Type B (PCR) NEGATIVE (Negative) RSV RNA Qual (PCR) NEGATIVE (Negative) SARS-CoV-2 RNA (RT-PCR) NEGATIVE (Negative) 05/20/24 05/20/24 Range/Units 11:21 13:53 WBC (4.8-10.8) X10*3/uL RBC (4.20-5.50) X10*6/uL Hgb (12.0-16.0) g/dl Hct (37.0-47.0) % MCV (80.0-98.0) fL MCH (27.0-33.0) pg MCHC (31.0-35.0) g/dl RDW (11.0-16.0) % Plt Count (160-400) X10*3/uL MPV (9.4-12.3) fL Immature Gran % (Auto) (0.0-0.4) % Neut % (Auto) (45-73) % Lymph % (Auto) (20-40) % [place] % (Auto) (2-11) % Eos % (Auto) (0-4) % Baso % (Auto) (0-2) % Lymph # (Auto) (1.2-4.9) X10*3/uL [place] # (Auto) (0.1-1.2) X10*3/uL Eos # (Auto) (0.0-0.4) X10*3/uL Baso # (Auto) (0.0-0.2) X10*3/uL Abs Immat Gran (auto) (0.00-0.03) X10*3/uL Absolute Neuts (auto) (2.0-8.3) x10*3/uL Absolute Nucleated RBC (0.0-0.012) X10*3/uL Nucleated RBC % (auto) (0.0-0.2) /100WBC Hold Blue Top SEE NOTE Sodium (135-145) mmol/L Potassium (3.3-5.1) mmol/L Chloride (96-108) mmol/L Carbon Dioxide (22-29) mmol/L Anion Gap (12-20) BUN (9-16) mg/dL Creatinine (0.5-1.4) mg/dL Estim Creat Clear Calc Estimated GFR Random Glucose (60-115) mg/dL Lactic Acid (0.5-2.0) mmol/L Lactic Acid F/U @ 2Hr 1.4 (0.5-2.0) mmol/L Calcium (8.4-10.2) mg/dL Troponin I High Sens (<3.5-17.0) ng/L Urine Color Urine Appearance Urine pH (5.0-9.0) Ur Specific [place] (1.005-1.025) Urine Protein (Neg-Trace) mg/dL Urine Glucose (UA) (Negative) mg/dL Urine Ketones (Negative) mg/dL Urine Blood (Negative) Urine Nitrite (Negative) Ur Leukocyte Esterase (Negative) Urine RBC (0-2) /HPF Urine WBC (0-5) /HPF Ur Squamous Epith Cells (0-2) /HPF Urine Bacteria (None Seen) Hyaline Casts (0-2) /LPF Salicylates (15-30) mg/dL Urine Opiates Screen (Not Detect) Ur Buprenorphine Scrn (Not Detect) ng/mL Ur Oxycodone Screen (Not Detect) ng/mL Urine Methadone Screen (Not Detect) ng/mL Urine Fentanyl Screen (Not Detect) Ur Barbiturates Screen (Not Detect) Ur Phencyclidine Scrn (Not Detect) Ur Amphetamines Screen (Not Detect) U Benzodiazepines Scrn (Not Detect) Urine Cocaine Screen (Not Detect) U Marijuana (THC) Screen (Not Detect) Influenza Type A (PCR) (Negative) Influenza Type B (PCR) (Negative) RSV RNA Qual (PCR) (Negative) SARS-CoV-2 RNA (RT-PCR) (Negative) Independent Historian Clinical information obtained from an independent historian. History obtained from or confirmed by: EMS Chronic Conditions dementia Critical Care Time Critical Care Time Critical Care Time: Yes Total Critical Care Time: 60 Attestation: lactic acidosis,possible bleach ingestion/UTI Discharge Plan Discharge Clinical Impression: Acute UTI, Acidosis, lactic Patient Disposition: Admitted As Inpatient Print Language: Wolof
[2024-05-20] MEDS: levoFLOXacin/D5W 500 MG/100 ML PIGGYBACK 100 MG IV (13:38)
[2024-05-20 14:16] LABS: ~Lactic Acid-LAB USE ONLY 1.4 mmol/L (0.5-2.0)
[2024-05-20] MEDS: 0.9 % Sodium Chloride 1,000 ML 999 ML IVCONT (14:58)
--- NOTE | 2024-05-20 15:04 | PC.NURSE ---
Turned and repositioned, purewick placed with large output of clear yellow urine
--- NOTE | 2024-05-20 15:29 | P.HPHOSP_ITS ---
History of Present Illness Date of Service: 05/20/24 Attending physician on admission: Faye Martínez Chief Complaint: AMS This is an 88-year-old female past medical history significant for hypertension, hyperlipidemia, dementia, diabetes, vitamin B12 deficiency, stroke who presented to the emergency department for worsening confusion over the past few days. According to EMS and nursing notes patient's family noticed patient had been confused over the past few days. Similar in the nursing note there was mentioned that patient was found next to a bottle of bleach however it is not thought that patient drank any of the bleach as there did not seem to be any missing from the bottle. Nurse from the emergency department was able to speak to patient's nephew Kobe who says family was not concerned about patient drinking the bleach. Patient is pleasantly confused and unable to provide me a history review of systems. Review of Systems 2 Review of Systems: Yes all other systems are reviewed and are negative [facility] Medical History Hemorrhagic stroke Carotid artery stenosis Thyroid nodule CKD (chronic kidney disease) LVH (left ventricular hypertrophy) Osteoporosis Vitamin B12 deficiency Hyperlipidemia Hypertension Diabetes mellitus Social History Unable to assess alcohol history related to: Unknown Smoked in Last 30 Days: No Use of substances other than those prescribed or required for medical reasons: Unable to respond Advance Directives: Yes Advance Directives on File: Yes Advance Directives Date on File: 09/28/23 Do you have a plan to hurt others: No Plan Meds Allergies Allergy/AdvReac Type Severity Reaction Status Date / Time amoxicillin [AMOXICILLIN] Allergy Unknown UNKNOWN Verified 05/20/24 11:05 Home Medications ?Medication ?Instructions ?Recorded ?Confirmed ?Last Taken ?Type amlodipine 5 mg tablet 5 mg PO DAILY 03/28/24 05/20/24 Unknown History atorvastatin 40 mg tablet 40 mg PO DAILY 03/28/24 Unknown History divalproex 250 mg tablet,extended 250 mg PO DAILY@1500 03/28/24 05/20/24 Unknown History release 24 hr lorazepam 0.5 mg tablet 0.25 mg PO DAILY PRN Anxiety 03/28/24 05/20/24 Unknown History losartan 50 mg tablet 50 mg PO DAILY 03/28/24 05/20/24 Unknown History metformin 850 mg tablet 850 mg PO BIDWM 03/28/24 05/20/24 Unknown History trazodone 50 mg tablet 50 mg PO BEDTIME 03/28/24 05/20/24 Unknown History divalproex 125 mg tablet,delayed 125 mg PO DAILY 05/20/24 Unknown History release fluticasone propionate 50 1 spray intranasal DAILY PRN 05/20/24 05/20/24 Unknown History mcg/actuation nasal Allergy Symptoms spray,suspension Physical Exam 2 Vital Signs and Narrative: Vital Signs: Last Vital Signs Temp 97 F 05/20/24 14:52 Pulse 94 05/20/24 15:02 Resp 22 H 05/20/24 15:02 BP 183/63 H 05/20/24 15:02 Pulse Ox 98 05/20/24 15:02 O2 Del Method Room Air 05/20/24 15:02 BMI result Body Mass Index 18.4 Appearance: Alert.? Oriented X1 to person.? No acute distress.? Head: Normocephalic, atraumatic, no step-offs or deformities Eyes: Pupils equal, round and reactive to light.? Neck: Normal inspection.? Neck supple.? CVS: Normal heart rate and rhythm.? Pulses normal.? Respiratory: No respiratory distress.? Breath sounds normal.? Abdomen: Soft and nontender.? Skin: Skin warm and dry.? Normal skin color.? Normal skin turgor.? Extremities: No lower extremity edema.? No calf ttp. Global weakness Back: No midline tenderness, no C-spine tenderness, full range of motion, no CVA tenderness bilaterally Neuro: Oriented X 1 to person.? No motor deficit.? No sensory deficit. CN 2-12 intact Results Labs 05/20/24 11:19 05/20/24 11:18 Labs: Laboratory Results - last 24 hr 05/20/24 05/20/24 05/20/24 11:09 11:18 11:19 MCV 89.5 MCH 30.8 MCHC 34.4 RDW 13.8 Plt Count 345 D MPV 9.2 L Immature Gran % (Auto) 0.8 H Neut % (Auto) 79.3 H Lymph % (Auto) 9.1 L [place] % (Auto) 9.6 Eos % (Auto) 0.9 Baso % (Auto) 0.3 Lymph # (Auto) 1.0 L [place] # (Auto) 1.0 Eos # (Auto) 0.1 Baso # (Auto) 0.0 Abs Immat Gran (auto) 0.09 H Absolute Neuts (auto) 8.4 H Absolute Nucleated RBC 0.000 Nucleated RBC % (auto) 0.0 Hold Blue Top Anion Gap 17 Estim Creat Clear Calc 26.6 Estimated GFR 49 Random Glucose 155 H Lactic Acid 2.9 H* Lactic Acid F/U @ 2Hr Calcium 9.2 D Troponin I High Sens 9.5 Urine Color Yellow Urine Appearance Cloudy Urine pH 5.5 Ur Specific [place] <= 1.005 Urine Protein Trace Urine Glucose (UA) Negative Urine Ketones Negative Urine Blood Trace H Urine Nitrite Positive H Ur Leukocyte Esterase Large (3+) H Urine RBC 0-2 Urine WBC >50 H Ur Squamous Epith Cells 0-2 Urine Bacteria 4+ Hyaline Casts 0-2 Salicylates < 5.0 L Urine Opiates Screen Not Detected Ur Buprenorphine Scrn Not Detected Ur Oxycodone Screen Not Detected Urine Methadone Screen Not Detected Urine Fentanyl Screen Not Detected Ur Barbiturates Screen Not Detected Ur Phencyclidine Scrn Not Detected Ur Amphetamines Screen Not Detected U Benzodiazepines Scrn Not Detected Urine Cocaine Screen Not Detected U Marijuana (THC) Screen Not Detected Influenza Type A (PCR) NEGATIVE Influenza Type B (PCR) NEGATIVE RSV RNA Qual (PCR) NEGATIVE SARS-CoV-2 RNA (RT-PCR) NEGATIVE 05/20/24 05/20/24 11:21 13:53 MCV MCH MCHC RDW Plt Count MPV Immature Gran % (Auto) Neut % (Auto) Lymph % (Auto) [place] % (Auto) Eos % (Auto) Baso % (Auto) Lymph # (Auto) [place] # (Auto) Eos # (Auto) Baso # (Auto) Abs Immat Gran (auto) Absolute Neuts (auto) Absolute Nucleated RBC Nucleated RBC % (auto) Hold Blue Top SEE NOTE Anion Gap Estim Creat Clear Calc Estimated GFR Random Glucose Lactic Acid Lactic Acid F/U @ 2Hr 1.4 Calcium Troponin I High Sens Urine Color Urine Appearance Urine pH Ur Specific [place] Urine Protein Urine Glucose (UA) Urine Ketones Urine Blood Urine Nitrite Ur Leukocyte Esterase Urine RBC Urine WBC Ur Squamous Epith Cells Urine Bacteria Hyaline Casts Salicylates Urine Opiates Screen Ur Buprenorphine Scrn Ur Oxycodone Screen Urine Methadone Screen Urine Fentanyl Screen Ur Barbiturates Screen Ur Phencyclidine Scrn Ur Amphetamines Screen U Benzodiazepines Scrn Urine Cocaine Screen U Marijuana (THC) Screen Influenza Type A (PCR) Influenza Type B (PCR) RSV RNA Qual (PCR) SARS-CoV-2 RNA (RT-PCR) Assessment and Plan (1) Acute UTI: Status: Acute (2) Delirium: Status: Acute (3) Afib: Status: Acute (4) Dementia: Status: Acute Plan This is an 80-year-old female being admitted for urinary tract infection, altered mental status/delirium ongoing for the past few days. CBC with normocytic anemia no reports of bleeding at this time. This is likely patient's baseline. Chemistry with low sodium 129 patient tolerating p.o. fluids will encourage p.o. hydration. Patient's BUN with mild elevation 23 again likely due to poor p.o. intake/dehydration patient has been encouraged to drink p.o. fluids. Lactic acid normal. UA with evidence of infection 4+ bacteria, leukocytes present as well as nitrates. Urine toxicology negative. Salicylates negative. Flu, COVID, RSV negative. While in the emergency department patient was noted to have new onset AFib it appears as though she is rate controlled however her rate fluctuating between 80 beats per minute to 90 beats per minute. Should be admitted to the hospitalist service for further evaluation and treatment. # Delirium # Urinary tract infection - Delirium/altered mental status likely secondary to urinary tract infection - 1 g ceftriaxone Q 24 H - Culture pending # Hypertension - Amlodipine 5 mg daily # Hyperlipidemia - Losartan 50 mg daily # Diabetes - Metformin 850 mg b.i.d. -ISS & POC # New onset atrial fibrillation - Currently rate controlled 80-90 bpm - Eliquis 2.5 mg p.o. b.i.d. - TTE ordered # Dementia -Divalproex ER 250 mg nightly - Trazodone 50 mg nightly - Lorazepam 0.5 mg p.r.n. for anxiety Code status: Full DVTP: eliquis 2.5 mg po BID Quality Stroke Does the patient have a stroke diagnosis?: No VTE Prior VTE?: No VTE Risk Level:: Medical - moderate - high VTE Device Contraindication: Treatment Not Indicated VTE Drug Contraindication: N/A - Med Ordered
--- NOTE | 2024-05-20 15:42 | PC.NURSE ---
Nephew called to check on patient , nephew stating that family does not believe that patient drank any bleach - they just think she was breathing the smell in because another family member was cleaning with bleach. Aware that patient is being admitted. Nephew stating that he wishes for her to be a full code at this time
--- NOTE | 2024-05-20 16:26 | PC.NURSE ---
HR 130`s remains in afib- PA aware
--- NOTE | 2024-05-20 16:58 | PHA.MEDREC ---
Pharmacy Consult ? Medication Reconciliation Pharmacy has completed the medication reconciliation. Spoke to pt's family to confirm meds. Pt depakote dose is decreased to 125 mg in the afternoon now.
[2024-05-20] MEDS: dilTIAZem HCL 50 MG/10 ML VIAL 10 MG IVPUSH (17:25)
[2024-05-20] MEDS: metFORMIN HCl 850 MG TABLET PO (17:55)
[2024-05-20 17:58] LABS: Glucose, Whole Blood 140 mg/dL (60-115)
--- NOTE | 2024-05-20 19:48 | PC.NURSE ---
T/w spoke with Prachi from poison control. Per Prachi d/t no ingestion of bleach or other chemical products and pt status at this time they are closing this case.
--- NOTE | 2024-05-20 20:56 | MHC.EDTECH ---
patient transferred to hospital bed. patient into position of comfort. Call gutierrez in place
[2024-05-20] MEDS: traZODone HCL 50 MG TABLET PO (22:15)
[2024-05-20] MEDS: 0.9 % Sodium Chloride Flush 3 ML SYRINGE IVFLUSH (22:15)
[2024-05-20] MEDS: Apixaban 2.5 MG TABLET PO (22:15)
[2024-05-21] VITALS (7 sets, daily range): BP systolic 141–152; BP diastolic 65–91; PULSE 73–97; RESP 14–19; TEMP 36.3–37.7; O2SAT 94–97; BMI 18.4
[2024-05-21 00:23] LABS: Glucose, Whole Blood 108 mg/dL (60-115)
[2024-05-21 06:38] LABS: MANUAL DIFF FLAG NO
[2024-05-21 06:56] LABS: Basophils Percent Auto 0.4 % (0-2); Eosinophils Absolute Auto 0.1 X10*3/uL (0.0-0.4); Eosinophils Percent Auto 1.2 % (0-4); Hematocrit 27.7 % (37.0-47.0); Hemoglobin 9.5 g/dl (12.0-16.0); Imm Gran Abs Auto 0.07 X10*3/uL (0.00-0.03); Imm Gran Pct Auto 0.7 % (0.0-0.4); Lymphocytes Absolute Auto 1.3 X10*3/uL (1.2-4.9); Lymphocytes Percent Auto 13.9 % (20-40); Mean Corpuscular HGB Conc 34.3 g/dl (31.0-35.0); Mean Corpuscular Hemoglobin 30.4 pg (27.0-33.0); Mean Corpuscular Volume 88.5 fL (80.0-98.0); Mean Platelet Volume 9.4 fL (9.4-12.3); Monocytes Percent Auto 9.9 % (2-11); Neutrophils Absolute Auto 7.1 x10*3/uL (2.0-8.3); Neutrophils Percent Auto 73.9 % (45-73); Platelet Count 360 X10*3/uL (160-400); Red Blood Count 3.13 X10*6/uL (4.20-5.50); Red Cell Distribution Width 14.1 % (11.0-16.0); White Blood Count 9.6 X10*3/uL (4.8-10.8)
[2024-05-21 07:00] LABS: Alanine Aminotransferase 11 U/L (0-31); Albumin Level 3.6 g/dL (3.5-5.0); Alkaline Phosphatase 66 U/L (39-117); Anion Gap 14 (12-20); Aspartate Amino Transferase 29 U/L (5-31); Bilirubin Total 0.5 mg/dL (0.0-1.0); Blood Urea Nitrogen 15 mg/dL (9-16); Carbon Dioxide 22 mmol/L (22-29); Chloride 103 mmol/L (96-108); Creatinine Clr Calc Pharmacy 28.6; Estimated Glomerular Filt Rate 54; Glucose Random 141 mg/dL (60-115); Potassium 3.4 mmol/L (3.3-5.1); Sodium 136 mmol/L (135-145); Total Protein 7.2 g/dL (6.5-8.0)
--- NOTE | 2024-05-21 07:00 | CA_ITS ---
Transthoracic Echocardiogram Patient (Last, First, Middle): Coco Lawson, Gender: Female Date of : 1935 Age: 88 Procedure Date: 05/21/2024 Procedure Type: Transthoracic Echocardiogram Location: ER Height: 157.48 cm Weight: 45.36 kg BSA: 1.42 m2 Heart Rate: 78 bpm BP: 134 / 72 mmHg Customer Service Consultant: SB Referring MD: Vu PHILLIPS Symptoms: New onset afib Study Quality: Adequate ECG Rhythm: Sinus Conclusions: - The left ventricular systolic function is normal. The calculated ejection fraction is 63% by biplane method. - No obvious valvular pathology seen on this study. - Patient could not tolerate study and ended it. Findings Left Ventricle Normal left ventricular cavity size. The left ventricular systolic function is normal. The calculated ejection fraction is 63% by biplane method. There is no evidence of regional wall motion abnormalities. Evidence suggests grade I (mild) diastolic dysfunction. There is mild septal asymmetric hypertrophy. Right Ventricle Normal right ventricular cavity size. There is mildly decreased right ventricular systolic function. Atria Both atria are normal in size. Aortic Valve There is a normal trileaflet aortic valve. There is mild calcification of the aortic valve. There is no aortic valve stenosis. There is trace (trivial) aortic valve regurgitation. Mitral Valve The mitral valve appears normal. There is mild mitral valve regurgitation. There is no mitral valve stenosis. Pulmonic Valve The pulmonic valve is likely normal. Tricuspid Valve There is trace tricuspid valve regurgitation. Mild pulmonary hypertension is present. Great Vessels The asc aorta is normal in size. Venous The inferior vena cava was not well visualized. Pericardium/Pleural There is no evidence of pericardial effusion. Prior Study Comparison No prior study available for comparison. Recommendations, Care & Conclusions No obvious valvular pathology seen on this study. Measurements 2D Linear Measurements IVSd: 1.05 0.6-0.9/0.6-1.0 cm LVIDd: 4.06 3.9-5.3/4.2-5.9 cm LVIDd Index: 2.86 2.4-3.2/2.2-3.1 cm/m2 LVIDs: 2.44 2.0-3.6 cm LVPWd: 0.77 0.7-1.1 cm LA Diam: 3.60 2.7-3.8/3.0-4.0 cm LAIDs Index: 2.54 1.5-2.3 cm/m2 LV Mass: 141.29 67-162/88-224 g LV Mass Index: 99.50 43-95/49-115 g/m2 LVOT Diam: 1.70 3.0+(-)1.3 cm 2D Systolic Function EF 4C: 63.20 >55% EF 2C: 57.90 >55% EF BiP: 62.50 >55% Mitral Valve MV Pk E: 0.80 MV PK A: 1.08 MV Decel Time: 227.00 E/A: 0.70 E'Lateral: 4.35 E'Medial: 3.81 E/E' Med: 20.90 E/E' Lat: 18.30 PHT: 67.00 MVA PHT: 3.28 Decel Wake: 3.51 Aortic Valve AoV Pk Ham: 1.24 AoV Pk Grad: 6.00 GEORGE: 1.91 AI Pk Ham: 3.85 AI Wake: 1.91 LVOT LVOT Pk Ham: 1.06 LVOT Mn Ham: 0.75 LVOT VTI: 0.23 LVOT Pk Grad: 4.00 LVOT Mn Grad: 2.00 LVOT Diam: 1.70 LVOT Area: 2.27 Diastolic Function MV Pk E: 0.80 MV Pk A: 1.08 E/A: 0.70 E'Medial: 3.81 E/E' Med: 20.90 E' Laterial: 4.35 E/E' Lat: 18.30 Right Ventricle TAPSE (mm): 15.70 TVS' Ham: 8.70 Tricuspid Valve TR Pk Ham: 2.99 TR Pk Grad: 36.00 RA Press: 3.00 RVSP: 39.00 Great Vessels Aorta Sinus of Valsalva: 3.10 2.0-3.5 cm Ao Asc: 3.20 2.1-3.4 cm Updated in Other Vendor System with Status of Final Polo Marcano MD electronically signed on 05/21/2024 10:52:11 AM with status of Final
--- NOTE | 2024-05-21 07:02 | PC.NURSE ---
Family concerns reported by nephew Kobe Renny HCP(PerFred). #[phone]- Kobe concerned about pt coming home ruight away. would like to speak to case management about options and concerns for pt. Oncoming LAZARO raemsh.
[2024-05-21 07:15] LABS: Glucose, Whole Blood 148 mg/dL (60-115)
[2024-05-21 09:16] LABS: Immature Retic Fraction 23.5 % (3.0-15.9); Retic HGB Equivalent 33.5 pg (30.0-35.0); Reticulocyte Percent 2.3 % (0.5-1.8); Reticulocytes Absolute 0.072 X10*6/uL (0.026-0.095)
[2024-05-21 09:24] LABS: Iron 39 mcg/dL (30-160); Percent Iron Saturation 21 % (15-50); Total Iron Binding Capacity 187 mcg/dL (228-428); Unsaturated Iron Binding 148 ug/dL
[2024-05-21] MEDS: 0.9 % Sodium Chloride Flush 3 ML SYRINGE IVFLUSH ×3 (09:26→20:20)
[2024-05-21] MEDS: Apixaban 2.5 MG TABLET PO (09:27)
[2024-05-21] MEDS: Losartan Potassium 50 MG TABLET PO (09:27)
[2024-05-21] MEDS: cefTRIAXone sodium 1 GM VIAL IVPUSH (09:27)
[2024-05-21] MEDS: amLODIPine Besylate 5 MG TABLET PO (09:27)
[2024-05-21 09:48] LABS: Lactate Dehydrogenase 223 U/L (122-220)
[2024-05-21 09:49] LABS: Ferritin 213 ng/mL (10-250); TSH reflex Free T4 2.72 uIU/mL (0.32-4.0)
[2024-05-21] MEDS: Magnesium Sulfate/H2O 2 GM/50 ML PIGGYBACK IV (11:19)
[2024-05-21] MEDS: metFORMIN HCl 850 MG TABLET PO ×2 (12:35→17:46)
--- NOTE | 2024-05-21 14:10 | MHC.CM.PN ---
CM SPOKE TO PTS NEPHEWDEE DEE [phone] HE REPORTS THE PT LIVES IN THE HOME WITH HIM AND HIS SISTER HE SAYS HIS SISTER WAS THE PTS CAREGIVER, HOWEVER HAS SOME OF HER OWN MEDICAL ISSUES AND WAS CAUGHT TAKING ADVANTAGE OF PT FINANCIALLY, SO HE TOOK EVERYTHING OVER PT ALSO HAS A HOME VISITS NURSE FROM [facility] THAT COMES THREE TIMES PER WEEK TO ASSIST WITH SHOWERS DOES NOT KNOW NAME OF PCP, HE THINKS IT IS BRUNO SON IN [place] HE SAYS HE IS THE HCP, COPY REQUESTED IMM DELIVERED NEPHEW STATES HE NO LONGER HAS A PERSONAL BANKING OFFICER FOR THE PT AND HOPES SHE CAN GO TO STR WHILE HE TRIES TO FIND A NEW HOME VISITS NURSE. HE IS INTERESTED IN REFERRALS TO [facility] AND [facility] [place] [facility], PT IN NEED OF INCREASED HOME CARE HE REPORTS HE HOPES SHE CAN COME HOME AFTER STR, HOWEVER KNOWS THAT SHE MAY NEED LTC IN THE LONG RUN DCP: GOAL IS STR WITH REFERRALS TO [facility] BLS TRANSPORT
[2024-05-21] MEDS: Divalproex Sodium ER 250 MG TAB.ER.24H PO (15:10)
--- NOTE | 2024-05-21 16:49 | HO.PM.IMPN ---
Subjective Subjective Date of Service: 05/21/24 Interval History: denies any complaints oriented to self/place, not date per Cardiology not in AF Review of Systems Review of Systems: Yes all other systems are reviewed and are negative Physical Exam Vital Signs: Vital Signs: Last Vital Signs Temp 98.4 F 05/21/24 15:38 Pulse 73 05/21/24 09:31 Resp 16 05/21/24 15:38 BP 141/65 H 05/21/24 09:31 Pulse Ox 97 05/21/24 15:38 O2 Del Method Room Air 05/21/24 15:38 BMI result Body Mass Index 18.4 Gen: in no acute distress HEENT: sclera anicteric, moist mucus membranes Neck: supple Lungs: clear to auscultation bilaterally Heart: regular rate and rhythm, no murmurs Abd: soft, non-tender, non-distended Ext: no edema Skin: warm/well-perfused Neuro: alert and oriented to self + place only, moving all extremities Psych: appropriate affect Objective Data Active Medications Acetaminophen (Acetaminophen 325 Mg Tablet) 650 mg PO Q6H PRN PRN Reason: Pain, Mild 1-3,fever,headache Amlodipine Besylate (Amlodipine Besylate 5 Mg Tablet) 5 mg PO DAILY [facility]; Protocol Last Admin: 05/21/24 09:27 Dose: 5 mg Documented By: NIYA Apixaban (Apixaban 2.5 Mg Tablet) 2.5 mg PO BID [facility] Last Admin: 05/21/24 09:27 Dose: 2.5 mg Documented By: NIYA Calcium Carbonate (Calcium Carbonate 750 Mg Tab.Chew) 750 mg PO Q4H PRN PRN Reason: Heartburn Ceftriaxone Sodium (Ceftriaxone Sodium 1 Gm Vial) 1 gm IVPUSH Q24H [facility] Last Admin: 05/21/24 09:27 Dose: 1 gm Documented By: NIYA Divalproex Sodium (Divalproex Sodium Er 250 Mg Tab.Er.24h) 250 mg PO DAILY@1500 [facility] Last Admin: 05/21/24 15:10 Dose: 250 mg Documented By: CAMDEN Fluticasone Propionate (Fluticasone Propionate Nasal 16 Gm [place]) 1 spray NOSTRIL-B DAILY PRN PRN Reason: Allergy Symptoms Glucose (Glucose Gel 15 Gm Gel..Gram.) 15 gm PO Q15M PRN; Protocol PRN Reason: per Hypoglycemia Standing Ord. Dextrose (D10) 250 mls @ 750 mls/hr IV Q15M PRN; Protocol PRN Reason: per Hypoglycemia Standing Ord. Lorazepam (Lorazepam 0.5 Mg Tablet) 0.25 mg PO DAILY PRN PRN Reason: Anxiety Losartan Potassium (Losartan Potassium 50 Mg Tablet) 50 mg PO DAILY [facility]; Protocol Last Admin: 05/21/24 09:27 Dose: 50 mg Documented By: NIYA Magnesium Hydroxide (Milk Of Magnesia 30 Ml Oral.Susp) 30 ml PO DAILY PRN PRN Reason: Constipation Magnesium Oxide (Magnesium Oxide 400 Mg Tablet) 400 mg PO BIDPC JESSEE Melatonin (Melatonin 3 Mg Tablet) 6 mg PO BEDTIME PRN PRN Reason: Insomnia Metformin HCl (Metformin Hcl 850 Mg Tablet) 850 mg PO BIDWM [facility] Last Admin: 05/21/24 12:35 Dose: 850 mg Documented By: CAMDEN Sodium Chloride (0.9 % Sodium Chloride Flush 3 Ml Syringe) 3 ml IVFLUSH QSHIFT [facility] Last Admin: 05/21/24 16:30 Dose: 3 ml Documented By: CAMDEN Trazodone HCl (Trazodone Hcl 50 Mg Tablet) 50 mg PO BEDTIME [facility] Last Admin: 05/20/24 22:15 Dose: 50 mg Documented By: DARSHAN Labs 05/21/24 05:38 05/21/24 05:38 Labs: Laboratory Results - last 24 hr 05/20/24 05/21/24 05/21/24 17:54 00:19 05:38 MCV 88.5 MCH 30.4 MCHC 34.3 RDW 14.1 Plt Count 360 MPV 9.4 Immature Gran % (Auto) 0.7 H Neut % (Auto) 73.9 H Lymph % (Auto) 13.9 L [place] % (Auto) 9.9 Eos % (Auto) 1.2 Baso % (Auto) 0.4 Lymph # (Auto) 1.3 [place] # (Auto) 1.0 Eos # (Auto) 0.1 Baso # (Auto) 0.0 Abs Immat Gran (auto) 0.07 H Absolute Neuts (auto) 7.1 Absolute Nucleated RBC 0.000 Nucleated RBC % (auto) 0.0 Absolute Retic 0.072 Percent Retic 2.3 H Immature Retic Fraction 23.5 H Retic Hgb Equivalent 33.5 Anion Gap 14 Estim Creat Clear Calc 28.6 Estimated GFR 54 POC Glucose 140 H 108 Random Glucose 141 H Calcium 9.0 Magnesium 1.0 L* Iron 39 TIBC 187 L % Saturation 21 Unsat Iron Binding 148 Ferritin 213 Total Bilirubin 0.5 AST 29 ALT 11 Alkaline Phosphatase 66 Lactate Dehydrogenase 223 H Total Protein 7.2 Albumin 3.6 TSH 2.72 05/21/24 07:12 MCV MCH MCHC RDW Plt Count MPV Immature Gran % (Auto) Neut % (Auto) Lymph % (Auto) [place] % (Auto) Eos % (Auto) Baso % (Auto) Lymph # (Auto) [place] # (Auto) Eos # (Auto) Baso # (Auto) Abs Immat Gran (auto) Absolute Neuts (auto) Absolute Nucleated RBC Nucleated RBC % (auto) Absolute Retic Percent Retic Immature Retic Fraction Retic Hgb Equivalent Anion Gap Estim Creat Clear Calc Estimated GFR POC Glucose 148 H Random Glucose Calcium Magnesium Iron TIBC % Saturation Unsat Iron Binding Ferritin Total Bilirubin AST ALT Alkaline Phosphatase Lactate Dehydrogenase Total Protein Albumin TSH Microbiology Microbiology Results: Microbiology 05/20/24 11:09 Blood Culture - Preliminary Blood - Venous No growth after 24 hours. 05/20/24 11:09 Blood Culture - Preliminary Blood - Venous No growth after 24 hours. 05/20/24 Unknown Urine Culture - Preliminary Urine Catheterized - Straight Catheter Gram negative tre Assessment and Plan (1) Delirium: Status: Acute Assessment and Plan: d2 for 80yo F with hypertension, hyperlipidemia, dementia, diabetes, vitamin B12 deficiency, and hx stroke presenting with several days of confusion, found to have UTI, hyponatremia initial question of AF but per Cardiology not in AF UTI - ceftriaxone 05/20-, follow UCx [growing GNRs] hypoNa, mild - corrected at appropriate rate after IV fluids hypoMg, severe - replete IV/PO, recheck in AM acute toxic-metabolic encephalopathy - treat above issues, monitor mentation HTN - amlodipine, losartan DM2 - MTF, rhonda-dose lispro dementia/mood disorder - continue divalproex, trazodone, lorazepam VTE ppx - enoxaparin dispo - PT consult In my clinical judgment, the patient requires continued inpatient hospitalization for the following reasons: IV ABX Total time managing care of this patient today: 40 minutes. Quality Stroke Does the patient have a stroke diagnosis?: No VTE Prior VTE?: No VTE Risk Level:: Medical - moderate - high VTE Device Contraindication: Treatment Not Indicated VTE Drug Contraindication: N/A - Med Ordered
[2024-05-21 17:02] LABS: Glucose, Whole Blood 156 mg/dL (60-115)
[2024-05-21] MEDS: Magnesium Oxide 400 MG TABLET PO (17:46)
[2024-05-21] MEDS: Enoxaparin Sodium 30 MG/0.3 ML SYRINGE SUBCUT (17:47)
[2024-05-21 19:53] LABS: Glucose, Whole Blood 193 mg/dL (60-115)
[2024-05-21] MEDS: traZODone HCL 50 MG TABLET PO (20:14)
[2024-05-22] VITALS (7 sets, daily range): BP systolic 121–150; BP diastolic 64–90; PULSE 73–98; RESP 12–18; TEMP 36.2–36.8; O2SAT 94–96; BMI 18.4
[2024-05-22 07:07] LABS: Glucose, Whole Blood 139 mg/dL (60-115)
[2024-05-22 08:10] LABS: Hematocrit 26.9 % (37.0-47.0); Hemoglobin 9.2 g/dl (12.0-16.0); Mean Corpuscular HGB Conc 34.2 g/dl (31.0-35.0); Mean Corpuscular Volume 90.6 fL (80.0-98.0); Mean Platelet Volume 9.4 fL (9.4-12.3); Platelet Count 348 X10*3/uL (160-400); Red Blood Count 2.97 X10*6/uL (4.20-5.50); Red Cell Distribution Width 14.3 % (11.0-16.0); White Blood Count 9.8 X10*3/uL (4.8-10.8)
[2024-05-22 08:35] LABS: Anion Gap 16 (12-20); Blood Urea Nitrogen 17 mg/dL (9-16); Calcium 8.8 mg/dL (8.4-10.2); Carbon Dioxide 22 mmol/L (22-29); Chloride 98 mmol/L (96-108); Creatinine Clr Calc Pharmacy 30.1; Estimated Glomerular Filt Rate 57; Glucose Random 126 mg/dL (60-115); Magnesium 1.7 mg/dL (1.6-2.6); Potassium 3.7 mmol/L (3.3-5.1); Sodium 132 mmol/L (135-145)
[2024-05-22] MEDS: Losartan Potassium 50 MG TABLET PO (09:06)
[2024-05-22] MEDS: Magnesium Oxide 400 MG TABLET PO ×2 (09:06→16:53)
[2024-05-22] MEDS: metFORMIN HCl 850 MG TABLET PO ×2 (09:06→16:53)
[2024-05-22] MEDS: 0.9 % Sodium Chloride Flush 3 ML SYRINGE IVFLUSH ×3 (09:09→21:37)
[2024-05-22] MEDS: amLODIPine Besylate 5 MG TABLET PO (09:09)
[2024-05-22] MEDS: cefTRIAXone sodium 1 GM VIAL IVPUSH (09:13)
--- NOTE | 2024-05-22 09:50 | MHC.CLN ---
PT IS MODERATELY MALNOURISHED PT WITH MILDLY DEPLETED SUBCUTANEOUS FAT AND MUSCLE MASS WITH 8% NONSIGNIFICANT WT LOSS X 6 MONTHS AND BMI 18 DIET RX: 1800DM-APPROPRIATE RECOMMEND ADDING MAGIC CUP TID TO INCREASE KCALS AND PROMOTE WT GAIN SUPP TO PROVIDE 870KCALS, 27G PROTEIN MONITOR PO INTAKE AND ENCOURAGE SUPPLEMENT SEE ALSO FULL CLINICAL NUTRITION ASSESSMENT
--- NOTE | 2024-05-22 10:33 | HO.PM.IMPN ---
Subjective Subjective Date of Service: 05/22/24 Interval History: no complaints, oriented to self only Review of Systems Review of Systems: Yes Unobtainable due to mental status Physical Exam Vital Signs: Vital Signs: Last Vital Signs Temp 97.4 F 05/22/24 07:29 Pulse 73 05/22/24 07:29 Resp 16 05/22/24 07:29 BP 146/67 H 05/22/24 09:06 Pulse Ox 95 05/22/24 07:29 O2 Del Method Room Air 05/22/24 07:29 BMI result Body Mass Index 18.4 Gen: in no acute distress HEENT: sclera anicteric, moist mucus membranes Neck: supple Lungs: clear to auscultation bilaterally Heart: regular rate and rhythm, no murmurs Abd: soft, non-tender, non-distended Ext: no edema Skin: warm/well-perfused Neuro: alert and oriented to self only, moving all extremities Psych: appropriate affect Objective Data Active Medications Acetaminophen (Acetaminophen 325 Mg Tablet) 650 mg PO Q6H PRN PRN Reason: Pain, Mild 1-3,fever,headache Amlodipine Besylate (Amlodipine Besylate 5 Mg Tablet) 5 mg PO DAILY [facility]; Protocol Last Admin: 05/22/24 09:09 Dose: 5 mg Documented By: DEWAYNE Calcium Carbonate (Calcium Carbonate 750 Mg Tab.Chew) 750 mg PO Q4H PRN PRN Reason: Heartburn Ceftriaxone Sodium (Ceftriaxone Sodium 1 Gm Vial) 1 gm IVPUSH Q24H [facility] Last Admin: 05/22/24 09:13 Dose: 1 gm Documented By: DEWAYNE Divalproex Sodium (Divalproex Sodium Er 250 Mg Tab.Er.24h) 250 mg PO DAILY@1500 [facility] Last Admin: 05/21/24 15:10 Dose: 250 mg Documented By: CAMDEN Enoxaparin Sodium (Enoxaparin Sodium 30 Mg/0.3 Ml Syringe) 30 mg SUBCUT Q24H [facility] Last Admin: 05/21/24 17:47 Dose: 30 mg Documented By: KIMBERLEY Fluticasone Propionate (Fluticasone Propionate Nasal 16 Gm [place]) 1 spray NOSTRIL-B DAILY PRN PRN Reason: Allergy Symptoms Glucose (Glucose Gel 15 Gm Gel..Gram.) 15 gm PO Q15M PRN; Protocol PRN Reason: per Hypoglycemia Standing Ord. Dextrose (D10) 250 mls @ 750 mls/hr IV Q15M PRN; Protocol PRN Reason: per Hypoglycemia Standing Ord. Lorazepam (Lorazepam 0.5 Mg Tablet) 0.25 mg PO DAILY PRN PRN Reason: Anxiety Losartan Potassium (Losartan Potassium 50 Mg Tablet) 50 mg PO DAILY [facility]; Protocol Last Admin: 05/22/24 09:06 Dose: 50 mg Documented By: DEWAYNE Magnesium Hydroxide (Milk Of Magnesia 30 Ml Oral.Susp) 30 ml PO DAILY PRN PRN Reason: Constipation Magnesium Oxide (Magnesium Oxide 400 Mg Tablet) 400 mg PO BIDPC [facility] Last Admin: 05/22/24 09:06 Dose: 400 mg Documented By: DEWAYNE Melatonin (Melatonin 3 Mg Tablet) 6 mg PO BEDTIME PRN PRN Reason: Insomnia Metformin HCl (Metformin Hcl 850 Mg Tablet) 850 mg PO BIDWM [facility] Last Admin: 05/22/24 09:06 Dose: 850 mg Documented By: DEWAYNE Sodium Chloride (0.9 % Sodium Chloride Flush 3 Ml Syringe) [facility] Last Admin: 05/22/24 09:09 Dose: 3 ml Documented By: DEWAYNE Trazodone HCl (Trazodone Hcl 50 Mg Tablet) 50 mg PO BEDTIME [facility] Last Admin: 05/21/24 20:14 Dose: 50 mg Documented By: KIMBERLEY Labs 05/22/24 05:51 05/22/24 05:51 Labs: Laboratory Results - last 24 hr 05/21/24 05/21/24 05/22/24 16:55 19:47 05:51 MCV 90.6 MCH 31.0 MCHC 34.2 RDW 14.3 Plt Count 348 MPV 9.4 Absolute Nucleated RBC 0.000 Nucleated RBC % (auto) 0.0 Anion Gap 16 Estim Creat Clear Calc 30.1 Estimated GFR 57 POC Glucose 156 H 193 H Random Glucose 126 H Calcium 8.8 Magnesium 1.7 05/22/24 06:59 MCV MCH MCHC RDW Plt Count MPV Absolute Nucleated RBC Nucleated RBC % (auto) Anion Gap Estim Creat Clear Calc Estimated GFR POC Glucose 139 H Random Glucose Calcium Magnesium Microbiology Microbiology Results: Microbiology 05/20/24 Unknown Urine Culture - Final Urine Catheterized - Straight Catheter Klebsiella pneumoniae 05/20/24 11:09 Blood Culture - Preliminary Blood - Venous No growth after 24 hours. 05/20/24 11:09 Blood Culture - Preliminary Blood - Venous No growth after 24 hours. Assessment and Plan (1) Delirium: Status: Acute Assessment and Plan: d2 for 80yo F with hypertension, hyperlipidemia, dementia, diabetes, vitamin B12 deficiency, and hx stroke presenting with several days of confusion, found to have UTI, hyponatremia initial question of AF but per Cardiology not in AF UTI, Klebsiella pneumoniae [resistant to ampicillin] - ceftriaxone 05/20-05/22, change to cefuroxime 05/22-05/27 [total 7d] hypoNa, mild - improved p IV fluids hypoMg, severe - repleted acute toxic-metabolic encephalopathy - treat above issues, monitor mentation HTN - amlodipine, losartan DM2 - MTF, rhonda-dose lispro dementia/mood disorder - continue divalproex, trazodone, lorazepam VTE ppx - enoxaparin dispo - PT consulted, does not qualify for STR, needs LTC or 15/11 care but family just lost caregiver, will discuss with CM In my clinical judgment, the patient requires continued inpatient hospitalization for the following reasons: placement Total time managing care of this patient today: 35 minutes. Quality Stroke Does the patient have a stroke diagnosis?: No VTE Prior VTE?: No VTE Risk Level:: Medical - moderate - high VTE Device Contraindication: Treatment Not Indicated VTE Drug Contraindication: N/A - Med Ordered
[2024-05-22 10:35] LABS: Folate 8.8 ng/mL (> or = 4.0); Vitamin B12 356 pg/mL (200-900)
[2024-05-22] MEDS: cefuroxime axetiL 250 MG TABLET PO ×2 (11:25→21:37)
[2024-05-22 11:50] LABS: Glucose, Whole Blood 119 mg/dL (60-115)
[2024-05-22 16:24] LABS: Glucose, Whole Blood 106 mg/dL (60-115)
[2024-05-22] MEDS: Divalproex Sodium ER 250 MG TAB.ER.24H PO (16:53)
[2024-05-22] MEDS: Enoxaparin Sodium 30 MG/0.3 ML SYRINGE SUBCUT (17:04)
[2024-05-22 20:09] LABS: Glucose, Whole Blood 159 mg/dL (60-115)
[2024-05-22] MEDS: traZODone HCL 50 MG TABLET PO (21:37)
[2024-05-23 02:46] VITALS: BP 115/59; PULSE 98; RESP 16; TEMP 36.1; O2SAT 95
[2024-05-23 07:20] VITALS: BP 125/61; PULSE 64; RESP 16; TEMP 36.1; O2SAT 93
[2024-05-23 07:25] LABS: Glucose, Whole Blood 137 mg/dL (60-115)
[2024-05-23] MEDS: Magnesium Oxide 400 MG TABLET PO ×2 (07:27→16:23)
[2024-05-23] MEDS: Losartan Potassium 50 MG TABLET PO (07:27)
[2024-05-23] MEDS: 0.9 % Sodium Chloride Flush 3 ML SYRINGE IVFLUSH ×3 (07:27→21:18)
[2024-05-23] MEDS: amLODIPine Besylate 5 MG TABLET PO (07:27)
[2024-05-23] MEDS: metFORMIN HCl 850 MG TABLET PO ×2 (07:27→16:23)
[2024-05-23] MEDS: cefuroxime axetiL 250 MG TABLET PO ×2 (10:17→21:18)
--- NOTE | 2024-05-23 10:52 | P.CDIM_ITS ---
PROVIDER RESPONSE TEXT: To clarify, the appropriate diagnosis supported by the clinical indicators: Moderate Protein Calorie Malnutrition QUERY TEXT: PHYSICIAN'S DOCUMENTATION REQUEST Date of Query: 05/22/2024 12:01 PM EST Patient Name: Coco Lawson Admit Date: 05/20/2024 Dear Andrea Ireland MD, A review of the medical record indicates additional documentation may be needed. Please review below and update the documentation accordingly. Clinical Indicators: Height: ( ) 5'2 Weight: ( ) 45.6 kg BMI: ( ) 18.4 Other Clinical Notes Supporting Significance of the BMI: Per Clinical Nutrition Assessment 05/22/24: patient with 8% nonsignificant weight loss x 6 months non-severe Malnutrition in the context of acute illness related to involuntary weight loss, patient w ith mildly depleted subcutaneous fat and muscle mass patient is moderately Malnourished recommend adding magic cup TID If possible, please provide an associated diagnosis related to the abnormal BMI, such as: Underweight Weight loss Cachexia Anorexia Moderate Protein Calorie Malnutrition Other (explain) Clinically unable to determine (explain) Thank you, Kenya Arce RN Use of terms such as suspected, likely, concern for, or probable (associated with a specific diagnosi s that is being evaluated, monitored, or treated as if it exists) are acceptable and can be coded in the inpatient se tting, when documented at the time of discharge. Please use your independent medical judgment in providing your response. THIS QUERY IS PART OF THE PERMANENT MEDICAL RECORD
[2024-05-23 11:26] LABS: Glucose, Whole Blood 131 mg/dL (60-115)
[2024-05-23 11:42] VITALS: BP 137/62; PULSE 78; RESP 16; TEMP 36.8; O2SAT 94
--- NOTE | 2024-05-23 12:18 | MHC.CLN ---
F/U DIET=DIABETIC 1800 KCALS. MAGIC CUP TID PROVIDES 870 KCALS, 27 G PROTEIN. MOST RECENT PO 25%. MONITOR PO INTAKE AND ENCOURAGE SUPPLEMENT.
--- NOTE | 2024-05-23 13:41 | MHC.CM.PN ---
Per Myrtle, [facility] Options forms analyst patient has an open case with [facility]. Services will start the day after discharge. She will be paired with [facility]. This will increase her hours. VM x 2 has been left for the patients liam Rice. The request is for a call back to inform him of increased services + hours. CM will continue to reach out to discuss DP with Dwayne.
--- NOTE | 2024-05-23 14:49 | HO.PM.IMPN ---
Subjective Subjective Date of Service: 05/23/24 Interval History: no compliants though history limited by dementia Review of Systems Review of Systems: Yes Unobtainable due to mental status Physical Exam Vital Signs: Vital Signs: Last Vital Signs Temp 98.3 F 05/23/24 11:42 Pulse 78 05/23/24 11:42 Resp 16 05/23/24 11:42 BP 137/62 05/23/24 11:42 Pulse Ox 94 05/23/24 11:42 O2 Del Method Room Air 05/23/24 11:42 BMI result Body Mass Index 18.4 Gen: in no acute distress HEENT: sclera anicteric, moist mucus membranes Neck: supple Lungs: clear to auscultation bilaterally Heart: regular rate and rhythm, no murmurs Abd: soft, non-tender, non-distended Ext: no edema Skin: warm/well-perfused Neuro: alert and oriented to self only, moving all extremities Psych: appropriate affect Objective Data Active Medications Acetaminophen (Acetaminophen 325 Mg Tablet) 650 mg PO Q6H PRN PRN Reason: Pain, Mild 1-3,fever,headache Amlodipine Besylate (Amlodipine Besylate 5 Mg Tablet) 5 mg PO DAILY [facility]; Protocol Last Admin: 05/23/24 07:27 Dose: 5 mg Documented By: DEWAYNE Calcium Carbonate (Calcium Carbonate 750 Mg Tab.Chew) 750 mg PO Q4H PRN PRN Reason: Heartburn Cefuroxime Axetil (Cefuroxime Axetil 250 Mg Tablet) 250 mg PO Q12H [facility] Stop: 05/27/24 10:44 Last Admin: 05/23/24 10:17 Dose: 250 mg Documented By: DEWAYNE Dextrose (Dextrose 50 % 25 Gm/50 Ml Syringe) 25 gm IVPUSH Q15M PRN PRN Reason: HYPOGLYCEMIA STANDING PROTOCOL Divalproex Sodium (Divalproex Sodium Er 250 Mg Tab.Er.24h) 250 mg PO DAILY@1500 [facility] Last Admin: 05/22/24 16:53 Dose: 250 mg Documented By: DEWAYNE Enoxaparin Sodium (Enoxaparin Sodium 30 Mg/0.3 Ml Syringe) 30 mg SUBCUT Q24H [facility] Last Admin: 05/22/24 17:04 Dose: 30 mg Documented By: DEWAYNE Fluticasone Propionate (Fluticasone Propionate Nasal 16 Gm [place]) 1 spray NOSTRIL-B DAILY PRN PRN Reason: Allergy Symptoms Glucose (Glucose Gel 15 Gm Gel..Gram.) 15 gm PO Q15M PRN; Protocol PRN Reason: per Hypoglycemia Standing Ord. Lorazepam (Lorazepam 0.5 Mg Tablet) 0.25 mg PO DAILY PRN PRN Reason: Anxiety Losartan Potassium (Losartan Potassium 50 Mg Tablet) 50 mg PO DAILY [facility]; Protocol Last Admin: 05/23/24 07:27 Dose: 50 mg Documented By: DEWAYNE Magnesium Hydroxide (Milk Of Magnesia 30 Ml Oral.Susp) 30 ml PO DAILY PRN PRN Reason: Constipation Magnesium Oxide (Magnesium Oxide 400 Mg Tablet) 400 mg PO BIDPC [facility] Last Admin: 05/23/24 07:27 Dose: 400 mg Documented By: DEWAYNE Melatonin (Melatonin 3 Mg Tablet) 6 mg PO BEDTIME PRN PRN Reason: Insomnia Metformin HCl (Metformin Hcl 850 Mg Tablet) 850 mg PO BIDWM [facility] Last Admin: 05/23/24 07:27 Dose: 850 mg Documented By: DEWAYNE Sodium Chloride (0.9 % Sodium Chloride Flush 3 Ml Syringe) [facility] Last Admin: 05/23/24 07:27 Dose: 3 ml Documented By: DEWAYNE Trazodone HCl (Trazodone Hcl 50 Mg Tablet) 50 mg PO BEDTIME [facility] Last Admin: 05/22/24 21:37 Dose: 50 mg Documented By: BRIAN Labs 05/22/24 05:51 05/22/24 05:51 Labs: Laboratory Results - last 24 hr 05/22/24 05/22/24 05/23/24 16:20 19:57 07:18 POC Glucose 106 159 H 137 H 05/23/24 11:14 POC Glucose 131 H Microbiology Microbiology Results: Microbiology 05/20/24 11:09 Blood Culture - Preliminary Blood - Venous No growth after 48 hours. 05/20/24 11:09 Blood Culture - Preliminary Blood - Venous No growth after 48 hours. Assessment and Plan (1) Delirium: Status: Acute Assessment and Plan: d3 for 80yo F with hypertension, hyperlipidemia, dementia, diabetes, vitamin B12 deficiency, and hx stroke presenting with several days of confusion, found to have UTI, hyponatremia initial question of AF but per Cardiology not in AF UTI, Klebsiella pneumoniae [resistant to ampicillin] - ceftriaxone 05/20-05/22, change to cefuroxime 05/22-05/27 [total 7d] hypoNa, mild - improved p IV fluids hypoMg, severe - repleted acute toxic-metabolic encephalopathy - treat above issues, monitor mentation HTN - amlodipine, losartan DM2 - MTF, rhonda-dose lispro dementia/mood disorder - continue divalproex, trazodone, lorazepam moderate pr/zak malnutrition - supplements VTE ppx - enoxaparin dispo - PT consulted, does not qualify for STR, needs LTC or 15/11 care but family just lost caregiver, will discuss with CM In my clinical judgment, the patient requires continued inpatient hospitalization for the following reasons: placement Total time managing care of this patient today: 35 minutes. Quality Stroke Does the patient have a stroke diagnosis?: No VTE Prior VTE?: No VTE Risk Level:: Medical - moderate - high VTE Device Contraindication: Treatment Not Indicated VTE Drug Contraindication: N/A - Med Ordered
[2024-05-23 15:27] VITALS: BP 117/65; PULSE 69; RESP 18; TEMP 36.5; O2SAT 95
[2024-05-23] MEDS: Divalproex Sodium ER 250 MG TAB.ER.24H PO (16:23)
[2024-05-23] MEDS: Enoxaparin Sodium 30 MG/0.3 ML SYRINGE SUBCUT (16:23)
[2024-05-23 17:23] LABS: Glucose, Whole Blood 201 mg/dL (60-115)
[2024-05-23 19:03] VITALS: BP 141/66; PULSE 79; RESP 16; TEMP 36; O2SAT 100
[2024-05-23 20:15] LABS: Glucose, Whole Blood 120 mg/dL (60-115)
[2024-05-23] MEDS: traZODone HCL 50 MG TABLET PO (21:18)
[2024-05-23 23:54] VITALS: BP 126/71; PULSE 55; RESP 16; TEMP 36.6; O2SAT 97
[2024-05-24 03:56] VITALS: BP 133/90; PULSE 91; RESP 18; TEMP 36; O2SAT 97
[2024-05-24 07:16] LABS: Glucose, Whole Blood 120 mg/dL (60-115)
[2024-05-24 07:25] VITALS: BP 113/53; PULSE 57; RESP 12; TEMP 36.1; O2SAT 96
[2024-05-24] MEDS: Magnesium Oxide 400 MG TABLET PO ×2 (08:24→17:59)
[2024-05-24] MEDS: amLODIPine Besylate 5 MG TABLET PO (08:24)
[2024-05-24] MEDS: Losartan Potassium 50 MG TABLET PO (08:24)
[2024-05-24] MEDS: metFORMIN HCl 850 MG TABLET PO ×2 (08:24→17:59)
[2024-05-24] MEDS: 0.9 % Sodium Chloride Flush 3 ML SYRINGE IVFLUSH ×3 (08:32→21:01)
[2024-05-24] MEDS: cefuroxime axetiL 250 MG TABLET PO ×2 (11:01→21:01)
[2024-05-24 11:22] LABS: Glucose, Whole Blood 115 mg/dL (60-115)
[2024-05-24 11:57] VITALS: BP 144/76; PULSE 65; RESP 18; TEMP 36.1; O2SAT 97
--- NOTE | 2024-05-24 12:33 | HO.PM.IMPN ---
Subjective Subjective Date of Service: 05/24/24 Interval History: no complaints Review of Systems Review of Systems: Yes Unobtainable due to mental status Physical Exam Vital Signs: Vital Signs: Last Vital Signs Temp 97.0 F 05/24/24 11:57 Pulse 65 05/24/24 11:57 Resp 18 05/24/24 11:57 BP 144/76 H 05/24/24 11:57 Pulse Ox 97 05/24/24 11:57 O2 Del Method Room Air 05/24/24 11:57 BMI result Body Mass Index 18.4 Gen: in no acute distress HEENT: sclera anicteric, moist mucus membranes Neck: supple Lungs: clear to auscultation bilaterally Heart: regular rate and rhythm, no murmurs Abd: soft, non-tender, non-distended Ext: no edema Skin: warm/well-perfused Neuro: alert and oriented to self only, moving all extremities Psych: appropriate affect Objective Data Active Medications Acetaminophen (Acetaminophen 325 Mg Tablet) 650 mg PO Q6H PRN PRN Reason: Pain, Mild 1-3,fever,headache Amlodipine Besylate (Amlodipine Besylate 5 Mg Tablet) 5 mg PO DAILY [facility]; Protocol Last Admin: 05/24/24 08:24 Dose: 5 mg Documented By: EVAN Calcium Carbonate (Calcium Carbonate 750 Mg Tab.Chew) 750 mg PO Q4H PRN PRN Reason: Heartburn Cefuroxime Axetil (Cefuroxime Axetil 250 Mg Tablet) 250 mg PO Q12H [facility] Stop: 05/27/24 10:44 Last Admin: 05/24/24 11:01 Dose: 250 mg Documented By: EVAN Dextrose (Dextrose 50 % 25 Gm/50 Ml Syringe) 25 gm IVPUSH Q15M PRN PRN Reason: HYPOGLYCEMIA STANDING PROTOCOL Divalproex Sodium (Divalproex Sodium Er 250 Mg Tab.Er.24h) 250 mg PO DAILY@1500 [facility] Last Admin: 05/23/24 16:23 Dose: 250 mg Documented By: DEWAYNE Enoxaparin Sodium (Enoxaparin Sodium 30 Mg/0.3 Ml Syringe) 30 mg SUBCUT Q24H [facility] Last Admin: 05/23/24 16:23 Dose: 30 mg Documented By: DEWAYNE Fluticasone Propionate (Fluticasone Propionate Nasal 16 Gm [place]) 1 spray NOSTRIL-B DAILY PRN PRN Reason: Allergy Symptoms Glucose (Glucose Gel 15 Gm Gel..Gram.) 15 gm PO Q15M PRN; Protocol PRN Reason: per Hypoglycemia Standing Ord. Lorazepam (Lorazepam 0.5 Mg Tablet) 0.25 mg PO DAILY PRN PRN Reason: Anxiety Losartan Potassium (Losartan Potassium 50 Mg Tablet) 50 mg PO DAILY [facility]; Protocol Last Admin: 05/24/24 08:24 Dose: 50 mg Documented By: EVAN Magnesium Hydroxide (Milk Of Magnesia 30 Ml Oral.Susp) 30 ml PO DAILY PRN PRN Reason: Constipation Magnesium Oxide (Magnesium Oxide 400 Mg Tablet) 400 mg PO BIDPC [facility] Last Admin: 05/24/24 08:24 Dose: 400 mg Documented By: EVAN Melatonin (Melatonin 3 Mg Tablet) 6 mg PO BEDTIME PRN PRN Reason: Insomnia Metformin HCl (Metformin Hcl 850 Mg Tablet) 850 mg PO BIDWM [facility] Last Admin: 05/24/24 08:24 Dose: 850 mg Documented By: EVAN Sodium Chloride (0.9 % Sodium Chloride Flush 3 Ml Syringe) 3 ml IVFLUSH QSHIFT [facility] Last Admin: 05/24/24 08:32 Dose: 3 ml Documented By: EVAN Trazodone HCl (Trazodone Hcl 50 Mg Tablet) 50 mg PO BEDTIME [facility] Last Admin: 05/23/24 21:18 Dose: 50 mg Documented By: ADELINA Labs 05/22/24 05:51 05/22/24 05:51 Labs: Laboratory Results - last 24 hr 05/23/24 05/23/24 05/24/24 16:07 20:11 07:08 POC Glucose 201 H 120 H 120 H 05/24/24 11:18 POC Glucose 115 Assessment and Plan (1) Delirium: Status: Acute Assessment and Plan: d4 for 80yo F with hypertension, hyperlipidemia, dementia, diabetes, vitamin B12 deficiency, and hx stroke presenting with several days of confusion, found to have UTI, hyponatremia initial question of AF but per Cardiology not in AF UTI, Klebsiella pneumoniae [resistant to ampicillin] - ceftriaxone 05/20-05/22, changed to cefuroxime 05/22-05/27 [total 7d] hypoNa, mild - improved p IV fluids hypoMg, severe - repleted acute toxic-metabolic encephalopathy - treat above issues, monitor mentation HTN - amlodipine, losartan DM2 - MTF, rhonda-dose lispro dementia/mood disorder - continue divalproex, trazodone, lorazepam - HCP invoked, pt does not have capacity for healthcare decisions moderate pr/zak malnutrition - supplements VTE ppx - enoxaparin dispo - PT consulted, does not qualify for STR, needs LTC or 24/7 care but family just lost caregiver, CM working on solution In my clinical judgment, the patient requires continued inpatient hospitalization for the following reasons: safe disposition Total time managing care of this patient today: 35 minutes. Quality Stroke Does the patient have a stroke diagnosis?: No VTE Prior VTE?: No VTE Risk Level:: Medical - moderate - high VTE Device Contraindication: Treatment Not Indicated VTE Drug Contraindication: N/A - Med Ordered
--- NOTE | 2024-05-24 15:14 | MHC.CM.PN ---
Addendum entered by Melissa Eli 05/24/24 15:26: has invoked the HCP. Original Note: Per leadership a call was received from Dwayne after business hours. He left a VM He stated that he could not provide 15/11 care for his aunt. Financial crm solution architect consult was made earlier this week. A text message was sent to Orin. She has been alerted to the imminent need for LTC insurance. She has been requested to inform the patient of the process and documents required. A VM has been left for Dwayne. He was instructed to call [facility] for a list of financial documents needed for the [facility]. application. Per patient does not have capacity.
[2024-05-24 15:32] VITALS: BP 119/60; PULSE 70; RESP 18; TEMP 36.6; O2SAT 94
[2024-05-24] MEDS: Divalproex Sodium ER 250 MG TAB.ER.24H PO (15:35)
[2024-05-24 16:42] LABS: Glucose, Whole Blood 189 mg/dL (60-115)
[2024-05-24] MEDS: Enoxaparin Sodium 30 MG/0.3 ML SYRINGE SUBCUT (17:59)
[2024-05-24 19:24] VITALS: BP 145/64; PULSE 82; RESP 18; TEMP 36.6; O2SAT 94
[2024-05-24 20:29] LABS: Glucose, Whole Blood 149 mg/dL (60-115)
[2024-05-24] MEDS: traZODone HCL 50 MG TABLET PO (21:01)
[2024-05-25 03:06] VITALS: BP 136/65; PULSE 54; RESP 16; TEMP 36.2; O2SAT 95
[2024-05-25 07:33] LABS: Glucose, Whole Blood 134 mg/dL (60-115)
[2024-05-25 07:35] VITALS: BP 114/70; PULSE 65; RESP 18; TEMP 36.2; O2SAT 95
[2024-05-25] MEDS: metFORMIN HCl 850 MG TABLET PO ×2 (08:04→17:28)
[2024-05-25] MEDS: Losartan Potassium 50 MG TABLET PO (08:04)
[2024-05-25] MEDS: amLODIPine Besylate 5 MG TABLET PO (08:04)
[2024-05-25] MEDS: Magnesium Oxide 400 MG TABLET PO ×2 (08:05→17:28)
[2024-05-25] MEDS: 0.9 % Sodium Chloride Flush 3 ML SYRINGE IVFLUSH ×3 (08:07→21:48)
--- NOTE | 2024-05-25 10:18 | P.PNIM_ITS ---
Subjective Subjective Date of Service: 05/25/24 Interval History: no complaints; history limited by dementia Review of Systems Review of Systems: Yes Unobtainable due to mental condition Physical Exam 2 Vital Signs: Vital Signs: Last Vital Signs Temp 97.2 F 05/25/24 07:35 Pulse 65 05/25/24 07:35 Resp 18 05/25/24 07:35 BP 114/70 05/25/24 07:35 Pulse Ox 95 05/25/24 07:35 O2 Del Method Room Air 05/25/24 07:35 BMI result Body Mass Index 18.4 Gen: in no acute distress HEENT: sclera anicteric, moist mucus membranes Neck: supple Lungs: clear to auscultation bilaterally Heart: regular rate and rhythm, no murmurs Abd: soft, non-tender, non-distended Ext: no edema Skin: warm/well-perfused Neuro: alert and oriented to self only, moving all extremities Psych: appropriate affect Objective Data Active Medications Acetaminophen (Acetaminophen 325 Mg Tablet) 650 mg PO Q6H PRN PRN Reason: Pain, Mild 1-3,fever,headache Amlodipine Besylate (Amlodipine Besylate 5 Mg Tablet) 5 mg PO DAILY [facility]; Protocol Last Admin: 05/25/24 08:04 Dose: 5 mg Documented By: EVAN Calcium Carbonate (Calcium Carbonate 750 Mg Tab.Chew) 750 mg PO Q4H PRN PRN Reason: Heartburn Cefuroxime Axetil (Cefuroxime Axetil 250 Mg Tablet) 250 mg PO Q12H ON LICENSE OF [facility] Stop: 05/27/24 10:44 Last Admin: 05/24/24 21:01 Dose: 250 mg Documented By: ADELINA Dextrose (Dextrose 50 % 25 Gm/50 Ml Syringe) 25 gm IVPUSH Q15M PRN PRN Reason: HYPOGLYCEMIA STANDING PROTOCOL Divalproex Sodium (Divalproex Sodium Er 250 Mg Tab.Er.24h) 250 mg PO DAILY@1500 [facility] Last Admin: 05/24/24 15:35 Dose: 250 mg Documented By: EVAN Enoxaparin Sodium (Enoxaparin Sodium 30 Mg/0.3 Ml Syringe) 30 mg SUBCUT Q24H ON LICENSE OF [facility] Last Admin: 05/24/24 17:59 Dose: 30 mg Documented By: EVAN Fluticasone Propionate (Fluticasone Propionate Nasal 16 Gm [place]) 1 spray NOSTRIL-B DAILY PRN PRN Reason: Allergy Symptoms Glucose (Glucose Gel 15 Gm Gel..Gram.) 15 gm PO Q15M PRN; Protocol PRN Reason: per Hypoglycemia Standing Ord. Lorazepam (Lorazepam 0.5 Mg Tablet) 0.25 mg PO DAILY PRN PRN Reason: Anxiety Losartan Potassium (Losartan Potassium 50 Mg Tablet) 50 mg PO DAILY ON LICENSE OF [facility]; Protocol Last Admin: 05/25/24 08:04 Dose: 50 mg Documented By: EVAN Magnesium Hydroxide (Milk Of Magnesia 30 Ml Oral.Susp) 30 ml PO DAILY PRN PRN Reason: Constipation Magnesium Oxide (Magnesium Oxide 400 Mg Tablet) 400 mg PO BIDPC ON LICENSE OF [facility] Last Admin: 05/25/24 08:05 Dose: 400 mg Documented By: EVAN Melatonin (Melatonin 3 Mg Tablet) 6 mg PO BEDTIME PRN PRN Reason: Insomnia Metformin HCl (Metformin Hcl 850 Mg Tablet) 850 mg PO BIDWM ON LICENSE OF [facility] Last Admin: 05/25/24 08:04 Dose: 850 mg Documented By: EVAN Sodium Chloride (0.9 % Sodium Chloride Flush 3 Ml Syringe) 3 ml IVFLUSH QSHIFT ON LICENSE OF [facility] Last Admin: 05/25/24 08:07 Dose: 3 ml Documented By: EVAN Trazodone HCl (Trazodone Hcl 50 Mg Tablet) 50 mg PO BEDTIME ON LICENSE OF [facility] Last Admin: 05/24/24 21:01 Dose: 50 mg Documented By: ADELINA Labs 05/22/24 05:51 05/22/24 05:51 Labs: Laboratory Results - last 24 hr 05/24/24 05/24/24 05/24/24 11:18 16:39 20:25 POC Glucose 115 189 H 149 H 05/25/24 07:30 POC Glucose 134 H Assessment and Plan (1) Delirium: Status: Acute Assessment and Plan: d5 for 80yo F with hypertension, hyperlipidemia, dementia, diabetes, vitamin B12 deficiency, and hx stroke presenting with several days of confusion, found to have UTI, hyponatremia initial question of AF but per Cardiology not in AF UTI, Klebsiella pneumoniae [resistant to ampicillin] - ceftriaxone 05/20-05/22, changed to cefuroxime 05/22-05/27 [total 7d] hypoNa, mild - improved p IV fluids hypoMg, severe - repleted acute toxic-metabolic encephalopathy - resolved, appears to be at baseline mental status HTN - amlodipine, losartan DM2 - MTF, rhonda-dose lispro dementia/mood disorder - continue divalproex, trazodone, lorazepam - HCP invoked, pt does not have capacity for healthcare decisions moderate pr/zak malnutrition - supplements VTE ppx - enoxaparin dispo - PT consulted, does not qualify for STR, needs LTC or 24/7 care but family will not take her back, JESSIE working on solution In my clinical judgment, the patient requires continued inpatient hospitalization for the following reasons: safe disposition Total time managing care of this patient today: 25 minutes. Quality Stroke Does the patient have a stroke diagnosis?: No VTE Prior VTE?: No VTE Risk Level:: Medical - moderate - high VTE Device Contraindication: Treatment Not Indicated VTE Drug Contraindication: N/A - Med Ordered
[2024-05-25] MEDS: cefuroxime axetiL 250 MG TABLET PO ×2 (10:51→21:48)
--- NOTE | 2024-05-25 11:10 | MHC.CLN ---
F/U DIET LIBERALIZED FROM DIABETIC 1800 KCALS TO REGULAR TO PROMOTE PO INTAKE. VARIABLE INTAKE, 25-100% WITH MOST 25%. RECEIVES MAGIC CUP TID TO PROVIDE 870 KCALS, 27 G PROTEIN. MONITOR PO INTAKE AND ENCOURAGE INTAKE AT MEALS AND SUPPLEMENT.
[2024-05-25 11:11] LABS: Glucose, Whole Blood 133 mg/dL (60-115)
[2024-05-25 12:00] VITALS: BP 115/60; PULSE 62; RESP 16; TEMP 36.3; O2SAT 97
--- NOTE | 2024-05-25 13:42 | MHC.CM.PN ---
CM SPOKE WITH HCP DEE DEE JIMÉNEZ WHO STATES HE WILL BRING IN BANK STATEMENTS TODAY BY 3 PM. CM EXPLAINED THE SENSE OF URGENCY TO GET THESE FORMS TO [facility] SO AUNT WILL HAVE FUNDING FOR PLACEMENT.. HCP AGAIN STATED HE WAS UNABLE TO PROVIDE 15/11 CARE FOR HIS AUNT. [facility] MADE AWARE THAT HE WILL BE BRINGING IN DOCUMENTS. CM WILL CONTINUE TO FOLLOW
--- NOTE | 2024-05-25 14:42 | MHC.CM.PN ---
Deed to home obtained. Transferred to HCP < 5 years ago (August 2020). Reviewed with CM director. Based on [facility] 5 year lookback, will not be approved for [facility]. Discussed w/ HCP/nepheverardo Rice who verbalized understanding. Unwilling/unable to sell the home. Prefers to plan for patient to return home w/ increased services if possible. Though, he does express concern re: ability to care for patient. IMM and HINN-12 delivered. HCP verbalized understanding. Goal is dc home w/ nephew early next week. 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 CM will continue to follow.
[2024-05-25] MEDS: Divalproex Sodium ER 250 MG TAB.ER.24H PO (14:44)
[2024-05-25 15:29] VITALS: BP 128/60; PULSE 70; RESP 16; TEMP 36.4; O2SAT 94
[2024-05-25 16:06] LABS: Glucose, Whole Blood 185 mg/dL (60-115)
[2024-05-25] MEDS: Enoxaparin Sodium 30 MG/0.3 ML SYRINGE SUBCUT (17:28)
[2024-05-25 19:09] VITALS: BP 134/66; PULSE 67; RESP 17; TEMP 36.6; O2SAT 95
[2024-05-25 20:21] LABS: Glucose, Whole Blood 176 mg/dL (60-115)
[2024-05-25] MEDS: traZODone HCL 50 MG TABLET PO (21:48)
[2024-05-25 23:33] VITALS: BP 145/65; PULSE 84; RESP 16; TEMP 36.2; O2SAT 95
[2024-05-26 03:35] VITALS: BP 138/68; PULSE 75; RESP 16; TEMP 36.4; O2SAT 95
[2024-05-26 05:42] VITALS: RESP 18
[2024-05-26 07:49] VITALS: BP 140/68; PULSE 64; RESP 16; TEMP 36.2; O2SAT 94
[2024-05-26 07:59] LABS: Glucose, Whole Blood 120 mg/dL (60-115)
[2024-05-26] MEDS: 0.9 % Sodium Chloride Flush 3 ML SYRINGE IVFLUSH ×2 (09:03→17:13)
[2024-05-26] MEDS: metFORMIN HCl 850 MG TABLET PO ×2 (09:03→17:13)
[2024-05-26] MEDS: Losartan Potassium 50 MG TABLET PO (09:04)
[2024-05-26] MEDS: amLODIPine Besylate 5 MG TABLET PO (09:15)
[2024-05-26] MEDS: Magnesium Oxide 400 MG TABLET PO ×2 (09:15→17:13)
[2024-05-26] MEDS: cefuroxime axetiL 250 MG TABLET PO (10:37)
[2024-05-26 11:57] LABS: Glucose, Whole Blood 253 mg/dL (60-115)
--- NOTE | 2024-05-26 13:16 | PC.NURSE ---
Per MD VS changed from Q4 to Qshift
--- NOTE | 2024-05-26 13:17 | P.PNIM_ITS ---
Subjective Subjective Date of Service: 05/26/24 Interval History: Two acute issues overnight. Pleasantly confused Review of Systems Denies chest pain Denies shortness of breath Denies nausea vomiting diarrhea Denies fever chills Physical Exam 2 Vital Signs: Vital Signs: Last Vital Signs Temp 97.2 F 05/26/24 07:49 Pulse 64 05/26/24 07:49 Resp 16 05/26/24 07:49 BP 140/68 H 05/26/24 07:49 Pulse Ox 94 05/26/24 07:49 O2 Del Method Room Air 05/26/24 07:49 BMI result Body Mass Index 18.4 Const: Other: Awake alert pleasantly confused but easily reoriented Resp: Other: Clear to auscultation bilaterally no rales rhonchi or wheezes Cardio: Other: No S4; positive S1-S2; no S3 murmurs rubs or gallops GI: Other: Soft nontender nondistended normoactive bowel sounds Neuro: Other: Cranial nerves 2-12 grossly intact as tested motor is 5/5 all extremities. Sensation intact cognition pleasantly confused easily reoriented Objective Data Active Medications Acetaminophen (Acetaminophen 325 Mg Tablet) 650 mg PO Q6H PRN PRN Reason: Pain, Mild 1-3,fever,headache Amlodipine Besylate (Amlodipine Besylate 5 Mg Tablet) 5 mg PO DAILY [facility]; Protocol Last Admin: 05/26/24 09:15 Dose: 5 mg Documented By: MAGNUS Calcium Carbonate (Calcium Carbonate 750 Mg Tab.Chew) 750 mg PO Q4H PRN PRN Reason: Heartburn Cefuroxime Axetil (Cefuroxime Axetil 250 Mg Tablet) 250 mg PO Q12H [facility] Stop: 05/27/24 10:44 Last Admin: 05/26/24 10:37 Dose: 250 mg Documented By: MAGNUS Dextrose (Dextrose 50 % 25 Gm/50 Ml Syringe) 25 gm IVPUSH Q15M PRN PRN Reason: HYPOGLYCEMIA STANDING PROTOCOL Dextrose (Dextrose 50 % 25 Gm/50 Ml Syringe) 25 gm IVPUSH Q15M PRN; Protocol PRN Reason: per Hypoglycemia Standing Ord. Divalproex Sodium (Divalproex Sodium Er 250 Mg Tab.Er.24h) 250 mg PO DAILY@1500 [facility] Last Admin: 05/25/24 14:44 Dose: 250 mg Documented By: EVAN Enoxaparin Sodium (Enoxaparin Sodium 30 Mg/0.3 Ml Syringe) 30 mg SUBCUT Q24H [facility] Last Admin: 05/25/24 17:28 Dose: 30 mg Documented By: EVAN Fluticasone Propionate (Fluticasone Propionate Nasal 16 Gm [place]) 1 spray NOSTRIL-B DAILY PRN PRN Reason: Allergy Symptoms Glucose (Glucose Gel 15 Gm Gel..Gram.) 15 gm PO Q15M PRN; Protocol PRN Reason: per Hypoglycemia Standing Ord. Glucose (Glucose Gel 15 Gm Gel..Gram.) 15 gm PO Q15M PRN; Protocol PRN Reason: per Hypoglycemia Standing Ord. Insulin Human Lispro (Insulin Lispro 100 Unit/Ml 3 Ml Vial) 0 unit SUBCUT QIDACHS [facility]; Protocol Losartan Potassium (Losartan Potassium 50 Mg Tablet) 50 mg PO DAILY [facility]; Protocol Last Admin: 05/26/24 09:04 Dose: 50 mg Documented By: MAGNUS Magnesium Hydroxide (Milk Of Magnesia 30 Ml Oral.Susp) 30 ml PO DAILY PRN PRN Reason: Constipation Magnesium Oxide (Magnesium Oxide 400 Mg Tablet) 400 mg PO BIDPC [facility] Last Admin: 05/26/24 09:15 Dose: 400 mg Documented By: MAGNUS Melatonin (Melatonin 3 Mg Tablet) 6 mg PO BEDTIME PRN PRN Reason: Insomnia Metformin HCl (Metformin Hcl 850 Mg Tablet) 850 mg PO BIDWM [facility] Last Admin: 05/26/24 09:03 Dose: 850 mg Documented By: MAGNUS Sodium Chloride (0.9 % Sodium Chloride Flush 3 Ml Syringe) [facility] Last Admin: 05/26/24 09:03 Dose: 3 ml Documented By: MAGNUS Trazodone HCl (Trazodone Hcl 50 Mg Tablet) 50 mg PO BEDTIME [facility] Last Admin: 05/25/24 21:48 Dose: 50 mg Documented By: KALA Labs 05/22/24 05:51 05/22/24 05:51 Labs: Laboratory Results - last 24 hr 05/25/24 05/25/24 05/26/24 16:02 20:15 07:49 POC Glucose 185 H 176 H 120 H 05/26/24 11:37 POC Glucose 253 H Microbiology Microbiology Results: Microbiology 05/20/24 11:09 Blood Culture - Final Blood - Venous No growth after 5 days. 05/20/24 11:09 Blood Culture - Final Blood - Venous No growth after 5 days. Assessment and Plan (1) Acute UTI: Status: Acute (2) Dementia: Status: Acute (3) Delirium: Status: Acute Assessment and Plan: 80yo F with hypertension, hyperlipidemia, dementia, diabetes, vitamin B12 deficiency, and hx stroke presenting with several days of confusion, found to have UTI, hyponatremia 1.UTI, Klebsiella pneumoniae resistant to ampicillin - ceftriaxone 05/20-05/22, changed to cefuroxime 05/22-05/27 total 7d 2.HypoNa -responded well to volume -follow renals/divalents 3.Acute toxic-metabolic encephalopathy - resolved, appears to be at baseline mental status 4.HTN -acceptable control on current therapies -adjust as indicated 5. Diabetes type 2 -acceptable control on current therapies -lispro correctional scale -adjust as indicated 6.Dementia/mood disorder -continue divalproex, trazodone, lorazepam -HCP invoked, pt does not have capacity for healthcare decisions Enoxaparin Full code In my clinical judgment, the patient requires continued inpatient hospitalization for the following reasons: safe disposition Quality Stroke Does the patient have a stroke diagnosis?: No VTE Prior VTE?: No VTE Risk Level:: Medical - moderate - high VTE Device Contraindication: Treatment Not Indicated VTE Drug Contraindication: N/A - Med Ordered
--- NOTE | 2024-05-26 14:48 | P.DS_ITS ---
DS: Providers Provider Date of Service: 05/26/24 Date of admission: 05/20/24 15:32 Date of discharge: 05/26/24 Primary care physician: Lesly Gutierrez DS: Diagnosis Discharge Diagnosis (1) Acute UTI: Status: Acute (2) Dementia: Status: Acute (3) Delirium: Status: Acute DS: Summary Hospital Course Hospital Course: 88-year-old female past medical history significant for hypertension, hyperlipidemia, dementia, diabetes, vitamin B12 deficiency, stroke who presented to the emergency department for worsening confusion over the past few days. According to EMS and nursing notes patient's family noticed patient had been confused over the past few days. Similar in the nursing note there was mentioned that patient was found next to a bottle of bleach however it is not thought that patient drank any of the bleach as there did not seem to be any missing from the bottle. Nurse from the emergency department was able to speak to patient's nephew Kobe who says family was not concerned about patient drinking the bleach. Patient is pleasantly confused and unable to provide me a history review of systems. Hospital course Patient was admitted to general medical floor and started on ceftriaxone. Urine eventually grew out Klebsiella that was sensitive to ceftriaxone. She was treated with ceftriaxone and switch to Ceftin p.o.. At this point in time she is medically acceptable to be DC home with 3 day course of Ceftin. She can follow up with her PCP next Time Attestation Discharge Coordination Time (in mins): 35 Quality: Safe Use of Opioids Does Pt have an Active Cancer Diagnosis on the Problem List?: No Quality: Stroke Does the patient have a stroke diagnosis?: No Physical Exam Vital Signs: Vital Signs: Last Vital Signs Temp 97.2 F 05/26/24 07:49 Pulse 64 05/26/24 07:49 Resp 16 05/26/24 07:49 BP 140/68 H 05/26/24 07:49 Pulse Ox 94 05/26/24 07:49 O2 Del Method Room Air 05/26/24 07:49 BMI result Body Mass Index 18.4 Const: Other: Awake alert pleasantly confused but easily reoriented Resp: Other: Clear to auscultation bilaterally no rales rhonchi or wheezes Cardio: Other: No S4; positive S1-S2; no S3 murmurs rubs or gallops GI: Other: Soft nontender nondistended normoactive bowel sounds Neuro: Other: Cranial nerves 2-12 grossly intact as tested motor is 5/5 all extremities. Sensation intact cognition pleasantly confused easily reoriented DS: Data Data Completed and Pending Labs on day of discharge: Laboratory Results - last 24 hr 05/25/24 05/25/24 05/26/24 16:02 20:15 07:49 POC Glucose 185 H 176 H 120 H 05/26/24 11:37 POC Glucose 253 H Discharge Plan Discharge Anticipated Discharge Date/Time: 05/26/24 14:44 Patient Disposition: Home Health Service Discharge Diagnosis: Acute UTI Referrals: Lesly Gutierrez [Other] - 1 Week Discharge Medications: New cefuroxime axetil 250 mg Tablet 250 mg PO Q12H Qty: 6 0RF Continued divalproex 125 mg tablet,delayed release (DR/EC) 125 mg PO DAILY@1500 fluticasone propionate 50 mcg/actuation [place],Suspension 1 spray INTRANASAL DAILY PRN (Reason: Allergy Symptoms) Rx Instructions: administer into each nostril lorazepam 0.5 mg tablet 0.25 mg PO DAILY PRN (Reason: Anxiety) losartan 50 mg tablet 50 mg PO DAILY trazodone 50 mg tablet 50 mg PO BEDTIME metformin 850 mg tablet 850 mg PO BIDWM amlodipine 5 mg tablet 5 mg PO DAILY atorvastatin 40 mg tablet 40 mg PO DAILY terazosin 1 mg capsule 1 mg PO BEDTIME 30 Days Qty: 30 3RF Discharge Orders: Discharge Order (Routine); Ordered 05/26/24 Ordered By: Gilberto Joiner Diet: Advance to usual diet Activity on Discharge: As tolerated Stand Alone Forms: Patient Portal Discharge page Print Language: Portuguese Care Plan Goals: Resume all meds as taken prior to hospitalization Health Concerns: Complete 3 days of oral Ceftin Plan of Treatment: Follow up with PCP next available Assessment: See discharge summary
[2024-05-26] MEDS: Divalproex Sodium ER 250 MG TAB.ER.24H PO (15:00)
--- NOTE | 2024-05-26 15:22 | MHC.CM.PN ---
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
[2024-05-26 15:27] VITALS: BP 104/83; PULSE 82; RESP 20; TEMP 36.8; O2SAT 97
--- NOTE | 2024-05-26 15:40 | W.MHC.F2F ---
Service Date Service Date: 05/26/24 Encounter Date of encounter: 05/26/24 Encounter: Acute hospitalization Reasons for Services Signs and symptoms assessed: Follow up on med management/compliance and respiratory status Reason for group home: medication management, medication treatment and teach disease management Homebound: Leaving the home is medically contraindicated at this time without the asist of a device and/or another person due th the listed conditions above and below. Reason homebound: unsteady gait / fall risk and unable to drive Certification: Based on the above findings, I certify that this patient is confined to the home and needs intermittent group home care, physical therapy and/or speech therapy, or continues to need occupational therapy. The patient is under my care, and I have initiated the establishment of the plan of care. The patient will be followed by a physician who will periodically review the plan of care. Time Spent With Patient Time: Total time managing care of this patient today ____ minutes.
[2024-05-26 16:07] LABS: Glucose, Whole Blood 145 mg/dL (60-115)
[2024-05-26] MEDS: Enoxaparin Sodium 30 MG/0.3 ML SYRINGE SUBCUT (17:12)
== END 2024-05-26 19:30 | disposition home health service (06) | DRG 689 ==
LOC: HO.ED 13:22 → HO.EDOVER 16:27 → HO.S3 05-21 15:21
PROVIDERS: Family Medicine; Student in an Organized Health Care Education/Training Program; Admitting Provider Physician Assistant; Emergency Provider Emergency Medicine; Visit Provider Hospitalist
DX: N39.0 Urinary tract infection, site not specified (principal); G92.8 Other toxic encephalopathy; F05 Delirium due to known physiological condition; I48.19 Other persistent atrial fibrillation; E87.1 Hypo-osmolality and hyponatremia; F03.93 Unspecified dementia, unspecified severity, with mood disturbance; Z16.11 Resistance to penicillins; E44.0 Moderate protein-calorie malnutrition; Z68.1 Body mass index [BMI] 19.9 or less, adult; E83.42 Hypomagnesemia; B96.1 Klebsiella pneumoniae [K. pneumoniae] as the cause of diseases classified elsewhere; E78.5 Hyperlipidemia, unspecified; I10 Essential (primary) hypertension; E11.9 Type 2 diabetes mellitus without complications; Z20.822 Contact with and (suspected) exposure to COVID-19; Z79.84 Long term (current) use of oral hypoglycemic drugs; Z79.899 Other long term (current) drug therapy
CPT/HCPCS: 0241U; 36415; 80048; 80053; 80179; 80307; 81001; 82607; 82728; 82746; 82947; 83540; 83605; 83615; 83735; 84443; 84484; 85025; 85027; 85045; 87040; 87086; 87088; 87186; 93005; 93306; 97162; 99285; J0696; J1650; J1956; J3475

== ENCOUNTER → 2024-05-20 11:15 | Outpatient (BNV) | payer MEDICARE, SELFPAY | PROVIDERS: Emergency Provider Emergency Medicine; Visit Provider Physician Assistant | DX: R41.0 Disorientation, unspecified (principal) | CPT/HCPCS: 99232 ==

== ENCOUNTER → 2024-05-20 12:03 | Outpatient (BNV) | payer MEDICARE, SELFPAY | PROVIDERS: Admitting Provider Physician Assistant; Emergency Provider Emergency Medicine; Visit Provider Internal Medicine | DX: R00.0 Tachycardia, unspecified (principal) | CPT/HCPCS: 93010 ==

== ENCOUNTER 2024-05-20 15:32 | Outpatient (BNV) | payer MEDICARE, SELFPAY | END 2024-05-21 07:00 | PROVIDERS: Admitting Provider Physician Assistant; Emergency Provider Emergency Medicine; Visit Provider Internal Medicine | DX: I42.2 Other hypertrophic cardiomyopathy (principal); I35.8 Other nonrheumatic aortic valve disorders; I34.0 Nonrheumatic mitral (valve) insufficiency; I27.20 Pulmonary hypertension, unspecified | CPT/HCPCS: 93306 ==

== ENCOUNTER 2024-07-16 19:31 | Inpatient (IN) | payer MEDICARE, SELFPAY ==
[2024-07-16 19:12] VITALS: BP 156/66; PULSE 88; RESP 16; TEMP 36.6; O2SAT 96
[2024-07-16 19:29] VITALS: BP 130/92; PULSE 92; O2SAT 95
[2024-07-16 19:34] VITALS: BP 125/77; PULSE 75; RESP 18; TEMP 36.9; O2SAT 96; BMI 23.7
--- NOTE | 2024-07-16 19:52 | ED.GENADULT ---
HPI - General Adult General Chief complaint: General Medical Stated complaint: uti symptoms, confused Time Seen by Provider: 07/16/24 19:53 Source: EMS Mode of arrival: EMS Limitations: altered mental status History of Present Illness ED Provider: Amelia Oneil NP HPI narrative: patient is an 88-year-old female with past medical history of hypertension, hyperlipidemia, dementia, diabetes, vitamin B12 deficiency, CVA, who presents emergency department via EMS for evaluation of altered mental status. Family expressed concern to EMS that she has been altered uncertain for how long or with the changes from her baseline, there was mention of recent treatment for UTI provided inpatient hospital records from an admission in April of 2024. Patient is pleasantly confused she is unable to tell me why she is here today she does not provide any meaningful history. I did attempt to obtain a history for review of systems she pleasantly answers no to everything Related Data Home Medications ?Medication ?Instructions ?Recorded ?Confirmed amlodipine 5 mg tablet 5 mg PO DAILY 03/28/24 05/20/24 atorvastatin 40 mg tablet 40 mg PO DAILY 03/28/24 05/20/24 lorazepam 0.5 mg tablet 0.25 mg PO DAILY PRN Anxiety 03/28/24 05/20/24 losartan 50 mg tablet 50 mg PO DAILY 03/28/24 05/20/24 metformin 850 mg tablet 850 mg PO BIDWM 03/28/24 05/20/24 trazodone 50 mg tablet 50 mg PO BEDTIME 03/28/24 05/20/24 divalproex 125 mg tablet,delayed 125 mg PO DAILY@1500 05/20/24 05/20/24 release fluticasone propionate 50 1 spray intranasal DAILY PRN 05/20/24 05/20/24 mcg/actuation nasal Allergy Symptoms spray,suspension Previous Rx's ?Medication ?Instructions ?Recorded terazosin 1 mg capsule 1 mg PO BEDTIME 30 days #30 caps 04/05/24 cefuroxime axetil 250 mg tablet 250 mg PO Q12H #6 tabs 05/26/24 Allergies Allergy/AdvReac Type Severity Reaction Status Date / Time amoxicillin [AMOXICILLIN] Allergy Unknown UNKNOWN Verified 07/16/24 19:35 Review of Systems Review of Systems: Yes Unobtainable due to mental status PMFSH Past Medical History Attestation statement: The following information was validated with the patient. Source: old records reviewed Medical History Acute UTI Dementia Afib Hemorrhagic stroke Carotid artery stenosis Thyroid nodule CKD (chronic kidney disease) LVH (left ventricular hypertrophy) Osteoporosis Vitamin B12 deficiency Hyperlipidemia Hypertension Diabetes mellitus Social History Social History Household Members: Family Housing: Unknown / Unable to assess Housing Other:: patient confused Unable to assess alcohol history related to: Unknown Patient Tobacco Use Status: Never used Tobacco Smoked in Last 30 Days: No Second Hand Smoke Exposure: No Use of substances other than those prescribed or required for medical reasons: No Advance Directives: Yes Advance Directives on File: Yes Advance Directives Date on File: 09/28/23 Do you have a plan to hurt others: No Plan service: No Physical Exam ED Vital Signs: Vital Signs - 24 hr 07/16/24 19:12 07/16/24 19:34 07/16/24 20:00 Temperature 97.9 F 98.5 F 98.5 F Pulse Rate 88 75 75 Respiratory Rate 16 18 18 Blood Pressure 156/66 H 125/77 125/77 Pulse Oximetry 96 96 96 Oxygen Delivery Method Room Air Room Air Room Air 07/16/24 22:02 Temperature Pulse Rate 80 Respiratory Rate Blood Pressure 146/74 H Pulse Oximetry 95 Oxygen Delivery Method Room Air BMI result Body Mass Index 23.7 Appearance: Alert.?Oriented to person, disoriented to place time and event. No acute distress.?Normal affect. Eyes: Pupils equal, round and reactive to light.? ENT: Pharynx normal.?? Neck: Normal inspection.? Neck supple.?? CVS: Heart sounds normal. Normal heart rate and rhythm.? Pulses normal.?? Respiratory: No respiratory distress.? Lung sounds clear to auscultation bilaterally?? Abdomen: Soft and non-tender. Normoactive bowel sounds. Skin: Skin warm and dry.? Normal skin color.? Extremities: No lower extremity edema.? No calf ttp? Neuro: Moves all extremities spontaneously. Sensation intact bilaterally. CN II-XII intact. No focal neuro deficits. Ambulates with normal steady gait. Course Reevaluation(s) Reevaluation #1: patient's nephew contacted back with visiting fpc as well. They endorsed that she has had increased agitation particularly over the past few nights, visiting nurse expresses concern that perhaps her urinary tract infection had never cleared as her urine remains quite dark despite her staying well hydrated throughout the day and drinking a lot. Time: 20:24 Reevaluation #2: U/A is positive, admission to medicine service for encephalopathy secondary to UTI, spoke with hospitalist Dr. Easley Medications Administered Generic Name Dose Route Start Last Admin Trade Name Freq PRN Reason Stop Dose Admin Ceftriaxone Sodium 1 gm 07/17/24 00:00 07/17/24 01:53 Ceftriaxone Sodium 1 Gm Vial IVPUSH 1 gm Q24H JESSEE Administration Discontinued Medications Generic Name Dose Route Start Last Admin Trade Name Freq PRN Reason Stop Dose Admin Lactated Ringer's 500 mls @ 500 mls/hr 07/16/24 23:45 07/17/24 01:53 Lr IV 07/17/24 00:44 500 mls/hr .Q1H JESSEE Administration Medical Decision Making Medical Decision Making [facility] Narrative: 20:04 attempted contact to patient's nephew Wero, listed as HCP unable to make contact left voicemail for call back. Not able to provide meaningful history from patient. patient is an 88-year-old female with past medical history of hypertension, hyperlipidemia, dementia, diabetes, vitamin B12 deficiency, CVA, who presents emergency department via EMS with family concern for altered mental status. She had a recent admission in April of 2024 similarly with confusion per family, found to have delirium setting of Klebsiella UTI sensitive to ceftriaxone. unable to obtain meaningful history from patient. no focal neurological deficits on evaluation, no signs of injury or trauma that would warrant emergent CT head imaging. Will obtain CBC to evaluate for leukocytosis/ anemia, CMP and lipase to evaluate for abnormal electrolytes /abnormal renal function/ abnormal hepatic/biliary function, viral serologies and Urinalysis. Differential Diagnosis Differential Diagnoses: The differential diagnosis associated with the presentation includes ( See narrative above) Admission/Observation Consideration of admission/observation: Escalation of care including admission/observation considered Lab Data [facility] Lab Attestation statement: I reviewed the patient's lab results. 07/16/24 20:39 07/16/24 20:39 Labs: Lab Results 07/16/24 07/16/24 Range/Units 20:39 21:53 WBC 9.5 (4.8-10.8) X10*3/uL RBC 3.59 L D (4.20-5.50) X10*6/uL Hgb 10.6 L (12.0-16.0) g/dl Hct 32.1 L (37.0-47.0) % MCV 89.4 (80.0-98.0) fL MCH 29.5 (27.0-33.0) pg MCHC 33.0 (31.0-35.0) g/dl RDW 13.9 (11.0-16.0) % Plt Count 346 (160-400) X10*3/uL MPV 9.1 L (9.4-12.3) fL Immature Gran % (Auto) 0.4 (0.0-0.4) % Neut % (Auto) 70.8 (45-73) % Lymph % (Auto) 17.1 L (20-40) % [place] % (Auto) 8.9 (2-11) % Eos % (Auto) 2.1 (0-4) % Baso % (Auto) 0.7 (0-2) % Lymph # (Auto) 1.6 (1.2-4.9) X10*3/uL [place] # (Auto) 0.8 (0.1-1.2) X10*3/uL Eos # (Auto) 0.2 (0.0-0.4) X10*3/uL Baso # (Auto) 0.1 (0.0-0.2) X10*3/uL Abs Immat Gran (auto) 0.04 H (0.00-0.03) X10*3/uL Absolute Neuts (auto) 6.7 (2.0-8.3) x10*3/uL Absolute Nucleated RBC 0.000 (0.0-0.012) X10*3/uL Nucleated RBC % (auto) 0.0 (0.0-0.2) /100WBC PT 10.2 L (10.9-12.4) SEC INR 0.9 (0.9-1.1) Sodium 135 (135-145) mmol/L Potassium 4.4 (3.3-5.1) mmol/L Chloride 102 (96-108) mmol/L Carbon Dioxide 21 L (22-29) mmol/L Anion Gap 16 (12-20) BUN 22 H (9-16) mg/dL Creatinine 1.03 (0.5-1.4) mg/dL Estim Creat Clear Calc 29.3 Estimated GFR 51 Random Glucose 111 (60-115) mg/dL Calcium 9.0 (8.4-10.2) mg/dL Total Bilirubin 0.3 (0.0-1.0) mg/dL Direct Bilirubin 0.2 (0.0-0.5) mg/dL AST 27 (5-31) U/L ALT 15 (0-31) U/L Alkaline Phosphatase 71 (39-117) U/L Total Protein 7.0 (6.5-8.0) g/dL Albumin 3.5 (3.5-5.0) g/dL Lipase 28 (8-78) U/L Urine Color Yellow Urine Appearance Cloudy Urine pH 6.0 (5.0-9.0) Ur Specific [place] 1.020 (1.005-1.025) Urine Protein 100 (2+) H (Neg-Trace) mg/dL Urine Glucose (UA) Negative (Negative) mg/dL Urine Ketones Negative (Negative) mg/dL Urine Blood Moderate (2+) H (Negative) Urine Nitrite Negative (Negative) Ur Leukocyte Esterase Moderate (2+) H (Negative) Urine RBC 0-2 (0-2) /HPF Urine WBC >50 H (0-5) /HPF Ur Squamous Epith Cells 0-2 (0-2) /HPF Calcium Oxalate Crystal Present Urine Bacteria 4+ (None Seen) Hyaline Casts 0-2 (0-2) /LPF Influenza Type A (PCR) NEGATIVE (Negative) Influenza Type B (PCR) NEGATIVE (Negative) RSV RNA Qual (PCR) NEGATIVE (Negative) SARS-CoV-2 RNA (RT-PCR) NEGATIVE (Negative) Independent Historian Clinical information obtained from an independent historian. History obtained from or confirmed by: EMS External Record Review External record reviewed: Outpatient record Chronic Conditions Patient?s care impacted by: Other ( see narrative above) Discharge Plan Discharge Clinical Impression: Acute metabolic encephalopathy, Acute UTI Patient Disposition: Admitted As Inpatient
[2024-07-16 20:00] VITALS: BP 125/77; PULSE 75; RESP 18; TEMP 36.9; O2SAT 96
--- NOTE | 2024-07-16 20:01 | ECG_ITS ---
Test Reason : ams Blood Pressure : */* mmHG Vent. Rate : 88 BPM Atrial Rate : 88 BPM P-R Int : 152 ms QRS Dur : 74 ms QT Int : 390 ms P-R-T Axes : 109 28 57 degrees QTcB Int : 471 ms Sinus rhythm with Premature supraventricular complexes Possible Inferior infarct , age undetermined Cannot rule out Anterior infarct , age undetermined Abnormal ECG When compared with ECG of 20-May-2024 12:03, No significant changes seen Referred By: Amelia Oneil Electronically Signed By: EYAL HOSKINS MD
[2024-07-16 20:50] LABS: Basophils Absolute Auto 0.1 X10*3/uL (0.0-0.2); Basophils Percent Auto 0.7 % (0-2); Eosinophils Absolute Auto 0.2 X10*3/uL (0.0-0.4); Eosinophils Percent Auto 2.1 % (0-4); Hematocrit 32.1 % (37.0-47.0); Hemoglobin 10.6 g/dl (12.0-16.0); Imm Gran Abs Auto 0.04 X10*3/uL (0.00-0.03); Imm Gran Pct Auto 0.4 % (0.0-0.4); Lymphocytes Absolute Auto 1.6 X10*3/uL (1.2-4.9); Lymphocytes Percent Auto 17.1 % (20-40); MANUAL DIFF FLAG NO; Mean Corpuscular Hemoglobin 29.5 pg (27.0-33.0); Mean Corpuscular Volume 89.4 fL (80.0-98.0); Mean Platelet Volume 9.1 fL (9.4-12.3); Monocytes Absolute Auto 0.8 X10*3/uL (0.1-1.2); Monocytes Percent Auto 8.9 % (2-11); Neutrophils Absolute Auto 6.7 x10*3/uL (2.0-8.3); Neutrophils Percent Auto 70.8 % (45-73); Platelet Count 346 X10*3/uL (160-400); Red Blood Count 3.59 X10*6/uL (4.20-5.50); Red Cell Distribution Width 13.9 % (11.0-16.0); White Blood Count 9.5 X10*3/uL (4.8-10.8)
[2024-07-16 20:55] LABS: INTERNATIONAL NORM RATIO 0.9 (0.9-1.1); Prothrombin Time 10.2 SEC (10.9-12.4)
[2024-07-16 21:05] LABS: Alanine Aminotransferase 15 U/L (0-31); Albumin Level 3.5 g/dL (3.5-5.0); Alkaline Phosphatase 71 U/L (39-117); Anion Gap 16 (12-20); Aspartate Amino Transferase 27 U/L (5-31); Bilirubin Direct 0.2 mg/dL (0.0-0.5); Bilirubin Total 0.3 mg/dL (0.0-1.0); Blood Urea Nitrogen 22 mg/dL (9-16); Carbon Dioxide 21 mmol/L (22-29); Chloride 102 mmol/L (96-108); Creatinine Clr Calc Pharmacy 29.3; Estimated Glomerular Filt Rate 51; Glucose Random 111 mg/dL (60-115); Lipase 28 U/L (8-78); Potassium 4.4 mmol/L (3.3-5.1); Sodium 135 mmol/L (135-145)
[2024-07-16 21:31] LABS: Influenza A PCR NEGATIVE (Negative); Influenza B PCR NEGATIVE (Negative); Resp Syncy Virus RNA Qual PCR NEGATIVE (Negative); SARS COV2 PCR INHOUSE NEGATIVE (Negative)
[2024-07-16 22:02] VITALS: BP 146/74; PULSE 80; O2SAT 95
[2024-07-16 22:34] LABS: Appearance Urine Cloudy; Color Urine Yellow; Glucose Urine UA Negative (Negative); Leukocyte Esterase Urine Moderate (2+) (Negative); Nitrite Urine Negative (Negative); UMIC TRIGGER UACC YES; Urine Blood Moderate (2+) (Negative); Urine Ketones Negative (Negative); Urine Protein 100 (2+) mg/dL (Neg-Trace)
[2024-07-16 23:05] LABS: Bacteria Urine 4+ (None Seen); Calcium Oxalate Crystals Urine Present; Hyaline Casts Urine 0-2 /LPF (0-2); RBC Urine 0-2 /HPF (0-2); Squamous Epithelial Cell Urine 0-2 /HPF (0-2); UACC Culture Trigger YES; WBC Urine >50 /HPF (0-5)
--- NOTE | 2024-07-16 23:42 | P.HPHOSP_ITS ---
History of Present Illness Date of Service: 07/16/24 Chief Complaint: AMS This is a 88-year-old female with pertinent history of dementia, unspecified, history of stroke, hypertension, mixed hyperlipidemia, mood disorder, lzu-wbehdjj-gttejhhte diabetes mellitus who was sent to the emergency department for evaluation of altered mentation. Patient only knows her name at the time of my evaluation. She is disoriented to place and time. Unable to obtain history from the patient. Does complain of urinary hesitancy and urinary odor upon questioning. Unable to obtain review of systems. As per ER provider, patient has been altered from her baseline. Last admitted in April 2024 for encephalopathy due to UTI. Review of Systems 2 Review of Systems: Yes Unobtainable due to mental status PMFSH Medical History Acute UTI Dementia Afib Hemorrhagic stroke Carotid artery stenosis Thyroid nodule CKD (chronic kidney disease) LVH (left ventricular hypertrophy) Osteoporosis Vitamin B12 deficiency Hyperlipidemia Hypertension Diabetes mellitus Social History Household Members: Family Housing: Unknown / Unable to assess Housing Other:: patient confused Unable to assess alcohol history related to: Unknown Patient Tobacco Use Status: Never used Tobacco Smoked in Last 30 Days: No Second Hand Smoke Exposure: No Use of substances other than those prescribed or required for medical reasons: No Advance Directives: Yes Advance Directives on File: Yes Advance Directives Date on File: 09/28/23 Do you have a plan to hurt others: No Plan service: No Meds Allergies Allergy/AdvReac Type Severity Reaction Status Date / Time amoxicillin [AMOXICILLIN] Allergy Unknown UNKNOWN Verified 07/16/24 19:35 Home Medications ?Medication ?Instructions ?Recorded ?Confirmed ?Last Taken ?Type amlodipine 5 mg tablet 5 mg PO DAILY 03/28/24 05/20/24 05/19/24 History atorvastatin 40 mg tablet 40 mg PO DAILY 03/28/24 05/20/24 05/19/24 History lorazepam 0.5 mg tablet 0.25 mg PO DAILY PRN Anxiety 03/28/24 05/20/24 Unknown History losartan 50 mg tablet 50 mg PO DAILY 03/28/24 05/20/24 05/19/24 History metformin 850 mg tablet 850 mg PO BIDWM 03/28/24 05/20/24 05/19/24 History trazodone 50 mg tablet 50 mg PO BEDTIME 03/28/24 05/20/24 05/19/24 History divalproex 125 mg tablet,delayed 125 mg PO DAILY@1500 05/20/24 05/20/24 05/19/24 History release fluticasone propionate 50 1 spray intranasal DAILY PRN 05/20/24 05/20/24 Unknown History mcg/actuation nasal Allergy Symptoms spray,suspension Physical Exam 2 Vital Signs and Narrative: Vital Signs: Last Vital Signs Temp 98.5 F 07/16/24 20:00 Pulse 80 07/16/24 22:02 Resp 18 07/16/24 20:00 BP 146/74 H 07/16/24 22:02 Pulse Ox 95 07/16/24 22:02 O2 Del Method Room Air 07/16/24 22:02 BMI result Body Mass Index 23.7 Elderly female lying in bed in no distress Neck supple, no JVD Regular rate and rhythm, S1-S2 heard Regular breath sounds bilaterally, no wheezing or crackles appreciated Abdomen soft nontender, no guarding, no rigidity Patient is awake, alert and oriented x1 ; no focal motor deficit Psych: Normal mood No pedal edema Results Labs 07/16/24 20:39 07/16/24 20:39 Labs: Laboratory Results - last 24 hr 07/16/24 07/16/24 20:39 21:53 MCV 89.4 MCH 29.5 MCHC 33.0 RDW 13.9 Plt Count 346 MPV 9.1 L Immature Gran % (Auto) 0.4 Neut % (Auto) 70.8 Lymph % (Auto) 17.1 L [place] % (Auto) 8.9 Eos % (Auto) 2.1 Baso % (Auto) 0.7 Lymph # (Auto) 1.6 [place] # (Auto) 0.8 Eos # (Auto) 0.2 Baso # (Auto) 0.1 Abs Immat Gran (auto) 0.04 H Absolute Neuts (auto) 6.7 Absolute Nucleated RBC 0.000 Nucleated RBC % (auto) 0.0 PT 10.2 L INR 0.9 Anion Gap 16 Estim Creat Clear Calc 29.3 Estimated GFR 51 Random Glucose 111 Calcium 9.0 Total Bilirubin 0.3 Direct Bilirubin 0.2 AST 27 ALT 15 Alkaline Phosphatase 71 Total Protein 7.0 Albumin 3.5 Lipase 28 Urine Color Yellow Urine Appearance Cloudy Urine pH 6.0 Ur Specific [place] 1.020 Urine Protein 100 (2+) H Urine Glucose (UA) Negative Urine Ketones Negative Urine Blood Moderate (2+) H Urine Nitrite Negative Ur Leukocyte Esterase Moderate (2+) H Urine RBC 0-2 Urine WBC >50 H Ur Squamous Epith Cells 0-2 Calcium Oxalate Crystal Present Urine Bacteria 4+ Hyaline Casts 0-2 Influenza Type A (PCR) NEGATIVE Influenza Type B (PCR) NEGATIVE RSV RNA Qual (PCR) NEGATIVE SARS-CoV-2 RNA (RT-PCR) NEGATIVE Assessment and Plan (1) Acute metabolic encephalopathy: Status: Acute (2) Acute UTI: Status: Acute Plan This is a 88-year-old female with pertinent history of dementia, unspecified, history of stroke, hypertension, mixed hyperlipidemia, mood disorder, nbu-roscpdo-tfhhowyjg diabetes mellitus who was sent to the emergency department for evaluation of altered mentation. #. Acute metabolic encephalopathy due to acute UTI: Reviewed previous urine cultures. Will admit patient with IV ceftriaxone. No sepsis. Monitor mentation. #. Dementia/mood disorder: On divalproex, trazodone and lorazepam. Maintain sleep-wake cycle #. Qvt-gagakso-tudocfvwv diabetes mellitus: Initiating Accu-Cheks with sliding scale insulin #. Hypertension: On amlodipine and losartan Med rec pending DVT prophylaxis: Lovenox Full code Admit as inpatient and will require two night minimum hospital stay for IV antibiotics, monitoring of mentation (as above), which is not possible in a lesser acute setting. Quality Stroke Does the patient have a stroke diagnosis?: No VTE Prior VTE?: No VTE Risk Level:: Medical - moderate - high VTE Device Contraindication: Treatment Not Indicated VTE Drug Contraindication: N/A - Med Ordered
--- NOTE | 2024-07-16 23:46 | PC.NURSE ---
Report given to LAZARO Bear.
[2024-07-17] VITALS (7 sets, daily range): BP systolic 135–171; BP diastolic 69–83; PULSE 75–100; RESP 16–20; TEMP 36.6–37.3; O2SAT 93–97
[2024-07-17 01:22] LABS: Glucose, Whole Blood 115 mg/dL (60-115)
[2024-07-17] MEDS: cefTRIAXone sodium 1 GM VIAL IVPUSH ×2 (01:53→23:22)
[2024-07-17] MEDS: Lactated Ringers 500 ML IV (01:53)
--- NOTE | 2024-07-17 01:55 | PC.NURSE ---
Reports taken from Rosemarie RN assumed care of pt at 0000. No IV access present- access obtained, IV abx and IVF hung and infusing without difficulty. Pt A&Ox2 skin pwd respirations even unlabored, VSS. Awaiting bed assignment for admission, aware of plan of care.
--- NOTE | 2024-07-17 02:00 | PC.NURSE ---
Lovenox not available in ED- requested med from accounting clerks supervisor, awaiting drop off.
[2024-07-17] MEDS: 0.9 % Sodium Chloride Flush 3 ML SYRINGE IVFLUSH ×4 (02:47→23:23)
[2024-07-17] MEDS: Enoxaparin Sodium 30 MG/0.3 ML SYRINGE SUBCUT (02:52)
--- NOTE | 2024-07-17 03:38 | PC.NURSE ---
Report given to Sarah WILLIS pt exits my care at this time.
--- NOTE | 2024-07-17 05:28 | PC.NURSE ---
Addendum entered by Tennille Gaston RN 07/17/24 05:37: Pt also endorsing being paranoid. Original Note: Assumed care of patient at 0320, pt in bed, alert and oriented X4 occasional forgetfulness. Pt pulled out IV accidentally. New IV placed 20R-AC, wrapped.
[2024-07-17 06:04] LABS: Glucose, Whole Blood 113 mg/dL (60-115)
[2024-07-17 06:38] LABS: MANUAL DIFF FLAG NO
[2024-07-17 06:49] LABS: Basophils Absolute Auto 0.1 X10*3/uL (0.0-0.2); Eosinophils Absolute Auto 0.2 X10*3/uL (0.0-0.4); Eosinophils Percent Auto 2.7 % (0-4); Hematocrit 30.2 % (37.0-47.0); Hemoglobin 10.1 g/dl (12.0-16.0); Imm Gran Abs Auto 0.03 X10*3/uL (0.00-0.03); Imm Gran Pct Auto 0.4 % (0.0-0.4); Lymphocytes Absolute Auto 1.8 X10*3/uL (1.2-4.9); Lymphocytes Percent Auto 21.5 % (20-40); Mean Corpuscular HGB Conc 33.4 g/dl (31.0-35.0); Mean Corpuscular Hemoglobin 29.4 pg (27.0-33.0); Mean Corpuscular Volume 87.8 fL (80.0-98.0); Mean Platelet Volume 9.4 fL (9.4-12.3); Monocytes Absolute Auto 0.9 X10*3/uL (0.1-1.2); Monocytes Percent Auto 10.5 % (2-11); Neutrophils Absolute Auto 5.2 x10*3/uL (2.0-8.3); Neutrophils Percent Auto 63.9 % (45-73); Platelet Count 342 X10*3/uL (160-400); Red Blood Count 3.44 X10*6/uL (4.20-5.50); Red Cell Distribution Width 13.8 % (11.0-16.0); White Blood Count 8.2 X10*3/uL (4.8-10.8)
[2024-07-17 06:57] LABS: Anion Gap 14 (12-20); Blood Urea Nitrogen 20 mg/dL (9-16); Carbon Dioxide 24 mmol/L (22-29); Chloride 101 mmol/L (96-108); Creatinine Clr Calc Pharmacy 39.8; Estimated Glomerular Filt Rate > 60; Glucose Random 108 mg/dL (60-115); Potassium 3.6 mmol/L (3.3-5.1); Sodium 135 mmol/L (135-145)
[2024-07-17 07:12] LABS: Glucose, Whole Blood 101 mg/dL (60-115)
--- NOTE | 2024-07-17 08:46 | PC.NURSE ---
Pt noted to be incontinent of large amount of urine and small amount of stool. Full bed change done, pt cleaned. Purewick placed for attempt to control urine incontinence. Pt alert, denying pain or complaints.
--- NOTE | 2024-07-17 09:25 | PHA.MEDREC ---
Addendum entered by Praveena Randolph, [facility] 07/17/24 11:07: called back, patient is to be on 125 mg of divalproex in the afternoon and 250 mg in the evening. Original Note: Pharmacy Consult ? Medication Reconciliation Pharmacy has completed the medication reconciliation. Patient is AMS, called patients [facility] and HCP, Kobe... Kobe did not know patients medication other than she picks up from [facility]. [facility] however patient has two doses of divalproex. Noticed prescriber is from [facility] family and certified substance abuse counselor. Called facility, RN also found providers note a bit confusing on what the patient should be on, she will have the provider call me back. Left unconfirmed for now.
--- NOTE | 2024-07-17 11:06 | MHC.CM.PN ---
PT WAS LIVING WITH NEPHEW/HCP PRIOR TO ADMISSION PER [facility] PT WAS ACTIVE WITH [facility] AND WITH [facility] UNDER THE FRAIL WAIVER PT WAS DENIED [place] IN APR AND WAS ISSUED A [facility]IPPS AT THAT TIME FAMILY IS STATING PT CAN NOT BE MANAGED AT HOME
--- NOTE | 2024-07-17 11:21 | MHC.CM.PN ---
LATER RECEIVED PHONE CALL FROM RIGO AT [facility] HER CM WHO THE NEPHEW CALLED AFTER SPEAKING W/CM TODAY RIGO [phone] RIGO REPORTS THAT A [facility] AP[facility]IC[facility] WAS SUBMITTED IN MAY ,PT WAS CLINICALLY APPROVED FOR FRAIL WAIVER BUT NEEDS [employer] TO GET SERVICES ..[employer] WAS CONTACTED TODAY BY RIGO WHO SAYS THAT A NEW [facility] HAS TO BE SUBMITTED THE WRONG [facility] WAS USED DIRE AWARE OF SITUATION F/S WILL BE GIVEN REFERRAL .PER [facility] THERE IS [facility] INVOVEMENT
--- NOTE | 2024-07-17 11:44 | P.PNIM_ITS ---
Subjective Subjective Date of Service: 07/17/24 Review of Systems Follow up encephalopathy secondary to UTI Physical Exam 2 Vital Signs: Vital Signs: Last Vital Signs Temp 98.0 F 07/17/24 03:39 Pulse 79 07/17/24 03:39 Resp 18 07/17/24 03:39 BP 141/70 H 07/17/24 03:39 Pulse Ox 93 07/17/24 03:39 O2 Del Method Room Air 07/17/24 03:39 BMI result Body Mass Index 23.7 Appearing in no acute distress lung sounds are clear to auscultation heart regular rate rhythm, clear S1, S2 positive bowel sounds, abdomen is soft, nontender neuro patient is alert, mild confusion Objective Data Active Medications Acetaminophen (Acetaminophen 325 Mg Tablet) 650 mg PO Q6H PRN PRN Reason: Pain, Mild 1-3,fever,headache Calcium Carbonate (Calcium Carbonate 750 Mg Tab.Chew) 750 mg PO Q4H PRN PRN Reason: Heartburn Ceftriaxone Sodium (Ceftriaxone Sodium 1 Gm Vial) 1 gm IVPUSH Q24H [facility] Last Admin: 07/17/24 01:53 Dose: 1 gm Documented By: JANEE Dextrose (Dextrose 50 % 25 Gm/50 Ml Syringe) 25 gm IVPUSH Q15M PRN; Protocol PRN Reason: per Hypoglycemia Standing Ord. Enoxaparin Sodium (Enoxaparin Sodium 30 Mg/0.3 Ml Syringe) 30 mg SUBCUT Q24H [facility] Last Admin: 07/17/24 02:52 Dose: 30 mg Documented By: JANEE Glucose (Glucose Gel 15 Gm Gel..Gram.) 15 gm PO Q15M PRN; Protocol PRN Reason: per Hypoglycemia Standing Ord. Insulin Human Lispro (Insulin Lispro 100 Unit/Ml 3 Ml Vial) 0 unit SUBCUT Q6H [facility]; Protocol Last Admin: 07/17/24 06:03 Dose: Not Given Documented By: DARSHAN Non-Admin Reason: [id number] Magnesium Hydroxide (Milk Of Magnesia 30 Ml Oral.Susp) 30 ml PO DAILY PRN PRN Reason: Constipation Melatonin (Melatonin 3 Mg Tablet) 6 mg PO BEDTIME PRN PRN Reason: Insomnia Ondansetron HCl (Ondansetron Hcl 4 Mg/2 Ml Vial) 4 mg IVPUSH Q8H PRN PRN Reason: Nausea and Vomiting Sodium Chloride (0.9 % Sodium Chloride Flush 3 Ml Syringe) 3 ml IVFLUSH QSHIFT [facility] Last Admin: 07/17/24 08:42 Dose: 3 ml Documented By: ANDRES Labs 07/17/24 05:57 07/17/24 05:57 Labs: Laboratory Results - last 24 hr 07/16/24 07/16/24 07/17/24 20:39 21:53 01:18 MCV 89.4 MCH 29.5 MCHC 33.0 RDW 13.9 Plt Count 346 MPV 9.1 L Immature Gran % (Auto) 0.4 Neut % (Auto) 70.8 Lymph % (Auto) 17.1 L [place] % (Auto) 8.9 Eos % (Auto) 2.1 Baso % (Auto) 0.7 Lymph # (Auto) 1.6 [place] # (Auto) 0.8 Eos # (Auto) 0.2 Baso # (Auto) 0.1 Abs Immat Gran (auto) 0.04 H Absolute Neuts (auto) 6.7 Absolute Nucleated RBC 0.000 Nucleated RBC % (auto) 0.0 PT 10.2 L INR 0.9 Anion Gap 16 Estim Creat Clear Calc 29.3 Estimated GFR 51 POC Glucose 115 Random Glucose 111 Calcium 9.0 Total Bilirubin 0.3 Direct Bilirubin 0.2 AST 27 ALT 15 Alkaline Phosphatase 71 Total Protein 7.0 Albumin 3.5 Lipase 28 Urine Color Yellow Urine Appearance Cloudy Urine pH 6.0 Ur Specific [place] 1.020 Urine Protein 100 (2+) H Urine Glucose (UA) Negative Urine Ketones Negative Urine Blood Moderate (2+) H Urine Nitrite Negative Ur Leukocyte Esterase Moderate (2+) H Urine RBC 0-2 Urine WBC >50 H Ur Squamous Epith Cells 0-2 Calcium Oxalate Crystal Present Urine Bacteria 4+ Hyaline Casts 0-2 Influenza Type A (PCR) NEGATIVE Influenza Type B (PCR) NEGATIVE RSV RNA Qual (PCR) NEGATIVE SARS-CoV-2 RNA (RT-PCR) NEGATIVE 07/17/24 07/17/24 07/17/24 05:57 06:00 07:04 MCV 87.8 MCH 29.4 MCHC 33.4 RDW 13.8 Plt Count 342 MPV 9.4 Immature Gran % (Auto) 0.4 Neut % (Auto) 63.9 Lymph % (Auto) 21.5 [place] % (Auto) 10.5 Eos % (Auto) 2.7 Baso % (Auto) 1.0 Lymph # (Auto) 1.8 [place] # (Auto) 0.9 Eos # (Auto) 0.2 Baso # (Auto) 0.1 Abs Immat Gran (auto) 0.03 Absolute Neuts (auto) 5.2 Absolute Nucleated RBC 0.000 Nucleated RBC % (auto) 0.0 PT INR Anion Gap 14 Estim Creat Clear Calc 39.8 Estimated GFR > 60 POC Glucose 113 101 Random Glucose 108 Calcium 9.0 Total Bilirubin Direct Bilirubin AST ALT Alkaline Phosphatase Total Protein Albumin Lipase Urine Color Urine Appearance Urine pH Ur Specific [place] Urine Protein Urine Glucose (UA) Urine Ketones Urine Blood Urine Nitrite Ur Leukocyte Esterase Urine RBC Urine WBC Ur Squamous Epith Cells Calcium Oxalate Crystal Urine Bacteria Hyaline Casts Influenza Type A (PCR) Influenza Type B (PCR) RSV RNA Qual (PCR) SARS-CoV-2 RNA (RT-PCR) Assessment and Plan (1) Acute metabolic encephalopathy: Status: Acute Plan 88-year-old female with pertinent history of dementia, unspecified, history of stroke, hypertension, mixed hyperlipidemia, mood disorder, uuy-ftbaoqf-xbmlcnwyh diabetes mellitus who was sent to the emergency department for evaluation of altered mentation. Acute metabolic encephalopathy due to acute UTI No sepsis Previous urine culture with Klebsiella pneumonia continue ceftriaxone. follow final cx Dementia/mood disorder On divalproex, trazodone and lorazepam. Maintain sleep-wake cycle Wgv-whtgmhv-xqxhbrnop diabetes mellitus ss, ada diet Hypertension On amlodipine and losartan DVT prophylaxis: Lovenox Full code Quality Stroke Does the patient have a stroke diagnosis?: No VTE Prior VTE?: No VTE Risk Level:: Medical - moderate - high VTE Device Contraindication: Treatment Not Indicated VTE Drug Contraindication: N/A - Med Ordered
--- NOTE | 2024-07-17 11:48 | MHC.CM.PN ---
E MAIL SENT TO [facility]/ [facility]
[2024-07-17 13:18] LABS: Glucose, Whole Blood 133 mg/dL (60-115)
--- NOTE | 2024-07-17 16:29 | PC.NURSE ---
Report to overflow LAZARO Jerry
[2024-07-17 18:01] LABS: Glucose, Whole Blood 128 mg/dL (60-115)
[2024-07-17] MEDS: Divalproex Sodium ER 250 MG TAB.ER.24H PO (19:11)
[2024-07-17] MEDS: Insulin Lispro 100 UNIT/ML 3 ML VIAL SUBCUT (21:29)
[2024-07-17] MEDS: traZODone HCL 50 MG TABLET PO (21:29)
[2024-07-17] MEDS: Doxazosin Mesylate 1 MG TABLET PO (21:29)
[2024-07-17] MEDS: Enoxaparin Sodium 40 MG/0.4 ML SYRINGE SUBCUT (23:22)
--- NOTE | 2024-07-18 00:03 | MHC.EDTECH ---
This tech took over care of pt at 2300,rounded and introduced self to pt,patient is clean and dry,pt appears comfortable,call gutierrez within reach
[2024-07-18 04:48] LABS: Glucose, Whole Blood 260 mg/dL (60-115)
[2024-07-18 07:56] LABS: Glucose, Whole Blood 108 mg/dL (60-115)
[2024-07-18 08:00] VITALS: BP 143/77; PULSE 79; RESP 16; TEMP 36.7; O2SAT 96
[2024-07-18] MEDS: Losartan Potassium 50 MG TABLET PO (08:08)
[2024-07-18] MEDS: Acetaminophen 325 MG TABLET 650 MG PO (08:08)
[2024-07-18] MEDS: Atorvastatin Calcium 40 MG TABLET PO (08:09)
[2024-07-18] MEDS: amLODIPine Besylate 5 MG TABLET PO (08:09)
[2024-07-18] MEDS: 0.9 % Sodium Chloride Flush 3 ML SYRINGE IVFLUSH ×2 (08:09→18:44)
[2024-07-18 11:48] LABS: Glucose, Whole Blood 201 mg/dL (60-115)
[2024-07-18] MEDS: Insulin Lispro 100 UNIT/ML 3 ML VIAL SUBCUT ×2 (11:52→22:21)
[2024-07-18] MEDS: Divalproex Sodium Sprinkles 125 MG CAP.DR.SPR PO (11:53)
--- NOTE | 2024-07-18 16:20 | HO.PM.IMPN ---
Subjective Subjective Date of Service: 07/18/24 Interval History: Patient is sleeping soundly. No complaints. Review of Systems All 12 systems were reviewed and normal except as noted in HPI. Physical Exam Vital Signs: Vital Signs: Last Vital Signs Temp 98.0 F 07/18/24 08:00 Pulse 79 07/18/24 08:00 Resp 16 07/18/24 08:00 BP 143/77 H 07/18/24 08:00 Pulse Ox 96 07/18/24 08:00 O2 Del Method Room Air 07/18/24 08:00 BMI result Body Mass Index 23.7 Constitutional - Sleeping. Easy to arouse. No distress. HEENT - PERRL, EOMI Heart - S1S2, RRR, No edema Lungs - Normal lung expansion, Normal respiratory effort, No respiratory distress, CTA bilaterally Abdomen - NT / ND; +BS; No rebound or guarding Extremities - no calf tenderness bilaterally, no swelling Musculoskeletal - Normal inspection, normal ROM Skin - Warm/Dry Neurological - no focal weakness grossly noted. Moving all extremities spontaneously. Psychological - no agitation Objective Data Active Medications Acetaminophen (Acetaminophen 325 Mg Tablet) 650 mg PO Q6H PRN PRN Reason: Pain, Mild 1-3,fever,headache Last Admin: 07/18/24 08:08 Dose: 650 mg Documented By: MURALI Amlodipine Besylate (Amlodipine Besylate 5 Mg Tablet) 5 mg PO DAILY [facility]; Protocol Last Admin: 07/18/24 08:09 Dose: 5 mg Documented By: MURALI Atorvastatin Calcium (Atorvastatin Calcium 40 Mg Tablet) 40 mg PO DAILY [facility] Last Admin: 07/18/24 08:09 Dose: 40 mg Documented By: MURALI Calcium Carbonate (Calcium Carbonate 750 Mg Tab.Chew) 750 mg PO Q4H PRN PRN Reason: Heartburn Ceftriaxone Sodium (Ceftriaxone Sodium 1 Gm Vial) 1 gm IVPUSH Q24H [facility] Last Admin: 07/17/24 23:22 Dose: 1 gm Documented By: TRAN Dextrose (Dextrose 50 % 25 Gm/50 Ml Syringe) 25 gm IVPUSH Q15M PRN; Protocol PRN Reason: per Hypoglycemia Standing Ord. Divalproex Sodium (Divalproex Sodium Sprinkles 125 Mg ) 125 mg PO DAILY@1200 [facility] Last Admin: 07/18/24 11:53 Dose: 125 mg Documented By: MURALI Divalproex Sodium (Divalproex Sodium Er 250 Mg Tab.Er.24h) 250 mg PO DAILY@1800 [facility] Last Admin: 07/17/24 19:11 Dose: 250 mg Documented By: RORY Doxazosin Mesylate (Doxazosin Mesylate 1 Mg Tablet) 1 mg PO BEDTIME [facility] Last Admin: 07/17/24 21:29 Dose: 1 mg Documented By: TRAN Enoxaparin Sodium (Enoxaparin Sodium 40 Mg/0.4 Ml Syringe) 40 mg SUBCUT Q24H [facility] Last Admin: 07/17/24 23:22 Dose: 40 mg Documented By: TRAN Fluticasone Propionate (Fluticasone Propionate Nasal 16 Gm [place]) 1 spray NOSTRIL-B DAILY PRN PRN Reason: Allergy Symptoms Glucose (Glucose Gel 15 Gm Gel..Gram.) 15 gm PO Q15M PRN; Protocol PRN Reason: per Hypoglycemia Standing Ord. Insulin Human Lispro (Insulin Lispro 100 Unit/Ml 3 Ml Vial) 0 unit SUBCUT QIDACHS [facility]; Protocol Last Admin: 07/18/24 11:52 Dose: 4 unit Documented By: MURALI Lorazepam (Lorazepam 0.5 Mg Tablet) 0.25 mg PO DAILY PRN PRN Reason: Anxiety Losartan Potassium (Losartan Potassium 50 Mg Tablet) 50 mg PO DAILY [facility]; Protocol Last Admin: 07/18/24 08:08 Dose: 50 mg Documented By: MURALI Magnesium Hydroxide (Milk Of Magnesia 30 Ml Oral.Susp) 30 ml PO DAILY PRN PRN Reason: Constipation Melatonin (Melatonin 3 Mg Tablet) 6 mg PO BEDTIME PRN PRN Reason: Insomnia Ondansetron HCl (Ondansetron Hcl 4 Mg/2 Ml Vial) 4 mg IVPUSH Q8H PRN PRN Reason: Nausea and Vomiting Sodium Chloride (0.9 % Sodium Chloride Flush 3 Ml Syringe) 3 ml IVFLUSH QSHIFT [facility] Last Admin: 07/18/24 08:09 Dose: 3 ml Documented By: MURALI Trazodone HCl (Trazodone Hcl 50 Mg Tablet) 50 mg PO BEDTIME [facility] Last Admin: 07/17/24 21:29 Dose: 50 mg Documented By: TRAN Labs 07/17/24 05:57 07/17/24 05:57 Labs: Laboratory Results - last 24 hr 07/17/24 07/17/24 07/18/24 17:54 21:20 07:07 POC Glucose 128 H 260 H 108 07/18/24 11:41 POC Glucose 201 H Microbiology Microbiology Results: Microbiology 07/16/24 Unknown Urine Culture - Preliminary Urine clean catch - Clean Catch Midstream Gram positive cocci Assessment and Plan (1) Acute UTI: Status: Acute (2) Acute metabolic encephalopathy: Status: Acute Plan Coco Lawson is a 88-year-old woman admitted with:. Acute metabolic encephalopathy due to acute UTI No sepsis Urine culture - Gram-positive cocci Continue ceftriaxone. Dementia/mood disorder On divalproex, trazodone and lorazepam. Maintain sleep-wake cycle [id number] diabetes mellitus ss, ada diet Hypertension On amlodipine and losartan DVT prophylaxis: Lovenox Full code Quality Stroke Does the patient have a stroke diagnosis?: No VTE Prior VTE?: No VTE Risk Level:: Medical - moderate - high VTE Device Contraindication: Treatment Not Indicated VTE Drug Contraindication: N/A - Med Ordered
[2024-07-18 18:02] VITALS: BP 103/51; PULSE 65; RESP 18; TEMP 36.4; O2SAT 96
[2024-07-18] MEDS: Divalproex Sodium ER 250 MG TAB.ER.24H PO (18:44)
[2024-07-18] MEDS: cefTRIAXone sodium 1 GM VIAL IVPUSH (21:57)
[2024-07-18] MEDS: Enoxaparin Sodium 40 MG/0.4 ML SYRINGE SUBCUT (22:19)
[2024-07-18] MEDS: Doxazosin Mesylate 1 MG TABLET PO (22:22)
[2024-07-18] MEDS: traZODone HCL 50 MG TABLET PO (22:22)
[2024-07-18 22:50] VITALS: BP 142/62; PULSE 65; TEMP 36.7; O2SAT 98
[2024-07-19 00:12] VITALS: BP 140/81; PULSE 68; RESP 16; TEMP 36.4; O2SAT 98
[2024-07-19] MEDS: 0.9 % Sodium Chloride Flush 3 ML SYRINGE IVFLUSH ×4 (01:26→22:24)
[2024-07-19 03:41] VITALS: BP 142/86; PULSE 72; RESP 16; TEMP 36.5; O2SAT 97
[2024-07-19 04:22] LABS: Glucose, Whole Blood 130 mg/dL (60-115)
[2024-07-19 04:22] LABS: Glucose, Whole Blood 208 mg/dL (60-115)
[2024-07-19 06:14] LABS: MANUAL DIFF FLAG NO
[2024-07-19 06:16] LABS: Basophils Percent Auto 0.5 % (0-2); Eosinophils Absolute Auto 0.3 X10*3/uL (0.0-0.4); Eosinophils Percent Auto 3.9 % (0-4); Hematocrit 31.4 % (37.0-47.0); Hemoglobin 10.8 g/dl (12.0-16.0); Imm Gran Abs Auto 0.04 X10*3/uL (0.00-0.03); Imm Gran Pct Auto 0.5 % (0.0-0.4); Lymphocytes Absolute Auto 2.5 X10*3/uL (1.2-4.9); Lymphocytes Percent Auto 29.8 % (20-40); Mean Corpuscular HGB Conc 34.4 g/dl (31.0-35.0); Mean Corpuscular Hemoglobin 29.7 pg (27.0-33.0); Mean Corpuscular Volume 86.3 fL (80.0-98.0); Mean Platelet Volume 8.8 fL (9.4-12.3); Monocytes Absolute Auto 0.8 X10*3/uL (0.1-1.2); Neutrophils Absolute Auto 4.5 x10*3/uL (2.0-8.3); Neutrophils Percent Auto 55.3 % (45-73); Platelet Count 332 X10*3/uL (160-400); Red Blood Count 3.64 X10*6/uL (4.20-5.50); Red Cell Distribution Width 13.7 % (11.0-16.0); White Blood Count 8.2 X10*3/uL (4.8-10.8)
[2024-07-19 06:32] LABS: Anion Gap 14 (12-20); Blood Urea Nitrogen 20 mg/dL (9-16); Calcium 9.3 mg/dL (8.4-10.2); Carbon Dioxide 24 mmol/L (22-29); Chloride 98 mmol/L (96-108); Creatinine Clr Calc Pharmacy 29.7; Estimated Glomerular Filt Rate 51; Glucose Random 111 mg/dL (60-115); Magnesium 1.6 mg/dL (1.6-2.6); Potassium 3.7 mmol/L (3.3-5.1); Sodium 132 mmol/L (135-145)
[2024-07-19 08:10] LABS: Glucose, Whole Blood 127 mg/dL (60-115)
[2024-07-19 08:49] VITALS: BP 140/67; PULSE 73; RESP 16; TEMP 36.2; O2SAT 96
[2024-07-19 09:08] VITALS: BMI 16.3
[2024-07-19] MEDS: Losartan Potassium 50 MG TABLET PO (09:27)
[2024-07-19] MEDS: amLODIPine Besylate 5 MG TABLET PO (09:27)
[2024-07-19] MEDS: Atorvastatin Calcium 40 MG TABLET PO (09:27)
[2024-07-19] MEDS: Divalproex Sodium Sprinkles 125 MG CAP.DR.SPR PO (11:59)
[2024-07-19] MEDS: Insulin Lispro 100 UNIT/ML 3 ML VIAL SUBCUT (11:59)
[2024-07-19 12:51] LABS: Glucose, Whole Blood 214 mg/dL (60-115)
[2024-07-19 13:10] VITALS: BMI 16.5
--- NOTE | 2024-07-19 13:14 | MHC.CLN ---
PT IS MODERATELY MALNOURISHED PT WITH 23% SIGNIFICANT WT LOSS X 9 MONTHS WITH MILDLY DEPLETED SUBCUTANEOUS FAT AND MUSCLE MASS WITH BMI 16 PT WITH INCREASED NUTRITION RISK R/T PRESSURE INJURY AND ADVANCED AGE DIET RX: 2GM NA -RECOMMEND 1800DM DIET RECOMMEND ADDING GELATEIN BID TO PROMOTE WOUND HEALING SUPP PROVIDES 320KCALS, 40G PROTEIN MONITOR PO INTAKE AND ENCOURAGE SUPPLEMENTS SEE FULL CLINICAL NUTRITION ASSESSMENT
[2024-07-19 15:54] VITALS: BP 121/59; PULSE 73; RESP 12; TEMP 36.3; O2SAT 96
[2024-07-19 16:41] LABS: Glucose, Whole Blood 127 mg/dL (60-115)
--- NOTE | 2024-07-19 17:22 | HO.PM.IMPN ---
Subjective Subjective Date of Service: 07/19/24 Interval History: No new complaints. Review of Systems Review of Systems: Yes Unobtainable due to mental status Physical Exam Vital Signs: Vital Signs: Last Vital Signs Temp 97.3 F 07/19/24 15:54 Pulse 73 07/19/24 15:54 Resp 12 07/19/24 15:54 BP 121/59 L 07/19/24 15:54 Pulse Ox 96 07/19/24 15:54 O2 Del Method Room Air 07/19/24 15:54 BMI result Body Mass Index 16.5 Constitutional - Alert. No acute distress. Pleasant. Cooperative. HEENT - PERRL, EOMI Heart - S1S2, RRR, No edema Lungs - Normal lung expansion, Normal respiratory effort, No respiratory distress, CTA bilaterally Abdomen - NT / ND; +BS; No rebound or guarding Extremities - no calf tenderness bilaterally, no swelling Musculoskeletal - Normal inspection, normal ROM Skin - Warm/Dry Neurological - Oriented only to person. No focal weakness grossly noted. Moving all extremities spontaneously. Psychological - no agitation Objective Data Active Medications Acetaminophen (Acetaminophen 325 Mg Tablet) 650 mg PO Q6H PRN PRN Reason: Pain, Mild 1-3,fever,headache Last Admin: 07/18/24 08:08 Dose: 650 mg Documented By: MURALI Amlodipine Besylate (Amlodipine Besylate 5 Mg Tablet) 5 mg PO DAILY [facility]; Protocol Last Admin: 07/19/24 09:27 Dose: 5 mg Documented By: SHON Atorvastatin Calcium (Atorvastatin Calcium 40 Mg Tablet) 40 mg PO DAILY [facility] Last Admin: 07/19/24 09:27 Dose: 40 mg Documented By: SHON Calcium Carbonate (Calcium Carbonate 750 Mg Tab.Chew) 750 mg PO Q4H PRN PRN Reason: Heartburn Ceftriaxone Sodium (Ceftriaxone Sodium 1 Gm Vial) 1 gm IVPUSH Q24H [facility] Last Admin: 07/18/24 21:57 Dose: 1 gm Documented By: ROSALIND Dextrose (Dextrose 50 % 25 Gm/50 Ml Syringe) 25 gm IVPUSH Q15M PRN; Protocol PRN Reason: per Hypoglycemia Standing Ord. Divalproex Sodium (Divalproex Sodium Sprinkles 125 Mg ) 125 mg PO DAILY@1200 [facility] Last Admin: 07/19/24 11:59 Dose: 125 mg Documented By: SHON Divalproex Sodium (Divalproex Sodium Er 250 Mg Tab.Er.24h) 250 mg PO DAILY@1800 [facility] Last Admin: 07/18/24 18:44 Dose: 250 mg Documented By: MURALI Doxazosin Mesylate (Doxazosin Mesylate 1 Mg Tablet) 1 mg PO BEDTIME [facility] Last Admin: 07/18/24 22:22 Dose: 1 mg Documented By: ROSALIND Enoxaparin Sodium (Enoxaparin Sodium 30 Mg/0.3 Ml Syringe) 30 mg SUBCUT Q24H [facility] Fluticasone Propionate (Fluticasone Propionate Nasal 16 Gm [place]) 1 spray NOSTRIL-B DAILY PRN PRN Reason: Allergy Symptoms Glucose (Glucose Gel 15 Gm Gel..Gram.) 15 gm PO Q15M PRN; Protocol PRN Reason: per Hypoglycemia Standing Ord. Insulin Human Lispro (Insulin Lispro 100 Unit/Ml 3 Ml Vial) 0 unit SUBCUT QIDACHS [facility]; Protocol Last Admin: 07/19/24 11:59 Dose: 4 unit Documented By: SHON Lorazepam (Lorazepam 0.5 Mg Tablet) 0.25 mg PO DAILY PRN PRN Reason: Anxiety Losartan Potassium (Losartan Potassium 50 Mg Tablet) 50 mg PO DAILY [facility]; Protocol Last Admin: 07/19/24 09:27 Dose: 50 mg Documented By: SHON Magnesium Hydroxide (Milk Of Magnesia 30 Ml Oral.Susp) 30 ml PO DAILY PRN PRN Reason: Constipation Melatonin (Melatonin 3 Mg Tablet) 6 mg PO BEDTIME PRN PRN Reason: Insomnia Ondansetron HCl (Ondansetron Hcl 4 Mg/2 Ml Vial) 4 mg IVPUSH Q8H PRN PRN Reason: Nausea and Vomiting Sodium Chloride (0.9 % Sodium Chloride Flush 3 Ml Syringe) 3 ml IVFLUSH QSHIFT [facility] Last Admin: 07/19/24 07:54 Dose: 3 ml Documented By: ELLEN Trazodone HCl (Trazodone Hcl 50 Mg Tablet) 50 mg PO BEDTIME [facility] Last Admin: 07/18/24 22:22 Dose: 50 mg Documented By: ROSALIND Labs 07/19/24 06:10 07/19/24 06:10 Labs: Laboratory Results - last 24 hr 07/18/24 07/18/24 07/19/24 16:40 20:37 06:10 MCV 86.3 MCH 29.7 MCHC 34.4 RDW 13.7 Plt Count 332 MPV 8.8 L Immature Gran % (Auto) 0.5 H Neut % (Auto) 55.3 Lymph % (Auto) 29.8 [place] % (Auto) 10.0 Eos % (Auto) 3.9 Baso % (Auto) 0.5 Lymph # (Auto) 2.5 [place] # (Auto) 0.8 Eos # (Auto) 0.3 Baso # (Auto) 0.0 Abs Immat Gran (auto) 0.04 H Absolute Neuts (auto) 4.5 Absolute Nucleated RBC 0.000 Nucleated RBC % (auto) 0.0 Anion Gap 14 Estim Creat Clear Calc 29.7 Estimated GFR 51 POC Glucose 130 H 208 H Random Glucose 111 Calcium 9.3 Magnesium 1.6 07/19/24 07/19/24 07/19/24 07:46 11:24 16:16 MCV MCH MCHC RDW Plt Count MPV Immature Gran % (Auto) Neut % (Auto) Lymph % (Auto) [place] % (Auto) Eos % (Auto) Baso % (Auto) Lymph # (Auto) [place] # (Auto) Eos # (Auto) Baso # (Auto) Abs Immat Gran (auto) Absolute Neuts (auto) Absolute Nucleated RBC Nucleated RBC % (auto) Anion Gap Estim Creat Clear Calc Estimated GFR POC Glucose 127 H 214 H 127 H Random Glucose Calcium Magnesium Microbiology Microbiology Results: Microbiology 07/16/24 Unknown Urine Culture - Preliminary Urine clean catch - Clean Catch Midstream Gram positive cocci Assessment and Plan (1) Acute UTI: Status: Acute (2) Acute metabolic encephalopathy: Status: Acute Plan Coco Lawson is a 88-year-old woman admitted with:. Acute metabolic encephalopathy due to acute UTI No sepsis Urine culture - Gram-positive cocci Continue ceftriaxone. Dementia/mood disorder On divalproex, trazodone and lorazepam. Maintain sleep-wake cycle [id number] diabetes mellitus ss, ada diet Hypertension On amlodipine, Cardura and losartan DVT prophylaxis: Lovenox Full code Quality Stroke Does the patient have a stroke diagnosis?: No VTE Prior VTE?: No VTE Risk Level:: Medical - moderate - high VTE Device Contraindication: Treatment Not Indicated VTE Drug Contraindication: N/A - Med Ordered
[2024-07-19] MEDS: Divalproex Sodium ER 250 MG TAB.ER.24H PO (18:33)
[2024-07-19 19:36] VITALS: BP 155/80; PULSE 71; RESP 16; TEMP 36.4; O2SAT 97
[2024-07-19 21:57] LABS: Glucose, Whole Blood 153 mg/dL (60-115)
[2024-07-19] MEDS: Enoxaparin Sodium 30 MG/0.3 ML SYRINGE SUBCUT (22:22)
[2024-07-19] MEDS: traZODone HCL 50 MG TABLET PO (22:22)
[2024-07-19] MEDS: cefTRIAXone sodium 1 GM VIAL IVPUSH (22:23)
[2024-07-19] MEDS: Doxazosin Mesylate 1 MG TABLET PO (22:30)
[2024-07-20 03:07] VITALS: BP 115/74; PULSE 72; RESP 16; TEMP 36.2; O2SAT 94
[2024-07-20 06:37] LABS: MANUAL DIFF FLAG NO
[2024-07-20 06:56] LABS: Anion Gap 14 (12-20); Blood Urea Nitrogen 21 mg/dL (9-16); Calcium 8.7 mg/dL (8.4-10.2); Carbon Dioxide 23 mmol/L (22-29); Chloride 96 mmol/L (96-108); Creatinine Clr Calc Pharmacy 26.2; Estimated Glomerular Filt Rate 59; Glucose Random 117 mg/dL (60-115); Potassium 3.7 mmol/L (3.3-5.1); Sodium 129 mmol/L (135-145)
[2024-07-20 07:16] LABS: Basophils Absolute Auto 0.1 X10*3/uL (0.0-0.2); Eosinophils Absolute Auto 0.2 X10*3/uL (0.0-0.4); Eosinophils Percent Auto 3.8 % (0-4); Hematocrit 28.1 % (37.0-47.0); Hemoglobin 9.6 g/dl (12.0-16.0); Imm Gran Abs Auto 0.04 X10*3/uL (0.00-0.03); Imm Gran Pct Auto 0.7 % (0.0-0.4); Lymphocytes Absolute Auto 1.9 X10*3/uL (1.2-4.9); Lymphocytes Percent Auto 31.3 % (20-40); Mean Corpuscular HGB Conc 34.2 g/dl (31.0-35.0); Mean Corpuscular Hemoglobin 29.3 pg (27.0-33.0); Mean Corpuscular Volume 85.7 fL (80.0-98.0); Mean Platelet Volume 9.2 fL (9.4-12.3); Monocytes Absolute Auto 0.6 X10*3/uL (0.1-1.2); Monocytes Percent Auto 10.4 % (2-11); Neutrophils Absolute Auto 3.2 x10*3/uL (2.0-8.3); Neutrophils Percent Auto 52.8 % (45-73); Platelet Count 327 X10*3/uL (160-400); Red Blood Count 3.28 X10*6/uL (4.20-5.50); Red Cell Distribution Width 13.5 % (11.0-16.0); White Blood Count 6.1 X10*3/uL (4.8-10.8)
[2024-07-20 08:06] VITALS: BP 117/57; PULSE 67; RESP 18; TEMP 36.2; O2SAT 94
[2024-07-20 08:16] LABS: Glucose, Whole Blood 112 mg/dL (60-115)
[2024-07-20] MEDS: Atorvastatin Calcium 40 MG TABLET PO (09:03)
[2024-07-20] MEDS: Losartan Potassium 50 MG TABLET PO (09:03)
[2024-07-20] MEDS: amLODIPine Besylate 5 MG TABLET PO (09:04)
[2024-07-20] MEDS: 0.9 % Sodium Chloride Flush 3 ML SYRINGE IVFLUSH ×3 (09:07→21:13)
[2024-07-20 09:19] VITALS: BP 117/57; PULSE 67; O2SAT 94
--- NOTE | 2024-07-20 10:55 | HO.SKINPHOTO ---
Location:coccyx Category:pressure injury Stage:Stage II Length: Width: Depth: cm Location: Category: Stage: Length: Width: Depth: cm Location: Category: Stage: Length: Width: Depth: cm Location: Category: Stage: Length: Width: Depth: cm Location: Category: Stage: Length: Width: Depth: cm Location: Category: Stage: Length: Width: Depth: cm
[2024-07-20 12:21] LABS: Glucose, Whole Blood 219 mg/dL (60-115)
[2024-07-20] MEDS: Insulin Lispro 100 UNIT/ML 3 ML VIAL SUBCUT (12:31)
[2024-07-20] MEDS: Divalproex Sodium Sprinkles 125 MG CAP.DR.SPR PO (12:31)
--- NOTE | 2024-07-20 14:17 | MHC.CLN ---
F/U CONSULT FOR POOR PO. PT WITH INCREASED NUTRITION RISK R/T PRESSURE INJURY AND ADVANCED AGE. DIET RX: 1800 DM DIET. ADDED GELATEIN BID TO PROMOTE WOUND HEALING. SUPPLEMENT PROVIDES 320 KCALS, 40 G PROTEIN. LIMITED PO DOC WITH 1 MEAL X 100% AND 1 MEAL X 25%. CURRENT DIET AND SUPPLEMENT APPROPRIATE. MONITOR PO INTAKE AND ENCOURAGE SUPPLEMENTS ABLE.
--- NOTE | 2024-07-20 15:08 | P.PNIM_ITS ---
Subjective Subjective Date of Service: 07/20/24 Interval History: No events overnight Review of Systems Review of Systems: Yes all other systems are reviewed and are negative Physical Exam 2 Vital Signs: Vital Signs: Last Vital Signs Temp 97.1 F 07/20/24 08:06 Pulse 67 07/20/24 09:19 Resp 18 07/20/24 08:06 BP 117/57 L 07/20/24 09:19 Pulse Ox 94 07/20/24 09:19 O2 Del Method Room Air 07/20/24 08:06 BMI result Body Mass Index 16.5 Constitutional - Alert. No acute distress. Pleasant. Cooperative. HEENT - PERRL, EOMI Heart - S1S2, RRR, No edema Lungs - Normal lung expansion, Normal respiratory effort, No respiratory distress, CTA bilaterally Abdomen - NT / ND; +BS; No rebound or guarding Extremities - no calf tenderness bilaterally, no swelling Musculoskeletal - Normal inspection, normal ROM Skin - Warm/Dry Neurological - Oriented only to person. No focal weakness grossly noted. Moving all extremities spontaneously. Psychological - no agitation Objective Data Active Medications Acetaminophen (Acetaminophen 325 Mg Tablet) 650 mg PO Q6H PRN PRN Reason: Pain, Mild 1-3,fever,headache Last Admin: 07/18/24 08:08 Dose: 650 mg Documented By: MURALI Amlodipine Besylate (Amlodipine Besylate 5 Mg Tablet) 5 mg PO DAILY [facility]; Protocol Last Admin: 07/20/24 09:04 Dose: 5 mg Documented By: SHON Atorvastatin Calcium (Atorvastatin Calcium 40 Mg Tablet) 40 mg PO DAILY [facility] Last Admin: 07/20/24 09:03 Dose: 40 mg Documented By: SHON Calcium Carbonate (Calcium Carbonate 750 Mg Tab.Chew) 750 mg PO Q4H PRN PRN Reason: Heartburn Ceftriaxone Sodium (Ceftriaxone Sodium 1 Gm Vial) 1 gm IVPUSH Q24H [facility] Last Admin: 07/19/24 22:23 Dose: 1 gm Documented By: ELVIA Dextrose (Dextrose 50 % 25 Gm/50 Ml Syringe) 25 gm IVPUSH Q15M PRN; Protocol PRN Reason: per Hypoglycemia Standing Ord. Divalproex Sodium (Divalproex Sodium Sprinkles 125 Mg ) 125 mg PO DAILY@1200 [facility] Last Admin: 07/20/24 12:31 Dose: 125 mg Documented By: SHON Divalproex Sodium (Divalproex Sodium Er 250 Mg Tab.Er.24h) 250 mg PO DAILY@1800 [facility] Last Admin: 07/19/24 18:33 Dose: 250 mg Documented By: SHON Doxazosin Mesylate (Doxazosin Mesylate 1 Mg Tablet) 1 mg PO BEDTIME [facility] Last Admin: 07/19/24 22:30 Dose: 1 mg Documented By: ELVIA Enoxaparin Sodium (Enoxaparin Sodium 30 Mg/0.3 Ml Syringe) 30 mg SUBCUT Q24H [facility] Last Admin: 07/19/24 22:22 Dose: 30 mg Documented By: ELVIA Fluticasone Propionate (Fluticasone Propionate Nasal 16 Gm [place]) 1 spray NOSTRIL-B DAILY PRN PRN Reason: Allergy Symptoms Glucose (Glucose Gel 15 Gm Gel..Gram.) 15 gm PO Q15M PRN; Protocol PRN Reason: per Hypoglycemia Standing Ord. Insulin Human Lispro (Insulin Lispro 100 Unit/Ml 3 Ml Vial) 0 unit SUBCUT QIDACHS [facility]; Protocol Last Admin: 07/20/24 12:31 Dose: 4 unit Documented By: SHON Lorazepam (Lorazepam 0.5 Mg Tablet) 0.25 mg PO DAILY PRN PRN Reason: Anxiety Losartan Potassium (Losartan Potassium 50 Mg Tablet) 50 mg PO DAILY [facility]; Protocol Last Admin: 07/20/24 09:03 Dose: 50 mg Documented By: SHON Magnesium Hydroxide (Milk Of Magnesia 30 Ml Oral.Susp) 30 ml PO DAILY PRN PRN Reason: Constipation Melatonin (Melatonin 3 Mg Tablet) 6 mg PO BEDTIME PRN PRN Reason: Insomnia Ondansetron HCl (Ondansetron Hcl 4 Mg/2 Ml Vial) 4 mg IVPUSH Q8H PRN PRN Reason: Nausea and Vomiting Sodium Chloride (0.9 % Sodium Chloride Flush 3 Ml Syringe) 3 ml IVFLUSH QSHIFT [facility] Last Admin: 07/20/24 09:07 Dose: 3 ml Documented By: SHON Trazodone HCl (Trazodone Hcl 50 Mg Tablet) 50 mg PO BEDTIME [facility] Last Admin: 07/19/24 22:22 Dose: 50 mg Documented By: HO.LYSZ Labs 07/20/24 06:12 07/20/24 06:12 Labs: Laboratory Results - last 24 hr 07/19/24 07/19/24 07/20/24 16:16 21:09 06:12 MCV 85.7 MCH 29.3 MCHC 34.2 RDW 13.5 Plt Count 327 MPV 9.2 L Immature Gran % (Auto) 0.7 H Neut % (Auto) 52.8 Lymph % (Auto) 31.3 [place] % (Auto) 10.4 Eos % (Auto) 3.8 Baso % (Auto) 1.0 Lymph # (Auto) 1.9 [place] # (Auto) 0.6 Eos # (Auto) 0.2 Baso # (Auto) 0.1 Abs Immat Gran (auto) 0.04 H Absolute Neuts (auto) 3.2 Absolute Nucleated RBC 0.000 Nucleated RBC % (auto) 0.0 Anion Gap 14 Estim Creat Clear Calc 26.2 Estimated GFR 59 POC Glucose 127 H 153 H Random Glucose 117 H Calcium 8.7 D 07/20/24 07/20/24 07:28 11:38 MCV MCH MCHC RDW Plt Count MPV Immature Gran % (Auto) Neut % (Auto) Lymph % (Auto) [place] % (Auto) Eos % (Auto) Baso % (Auto) Lymph # (Auto) [place] # (Auto) Eos # (Auto) Baso # (Auto) Abs Immat Gran (auto) Absolute Neuts (auto) Absolute Nucleated RBC Nucleated RBC % (auto) Anion Gap Estim Creat Clear Calc Estimated GFR POC Glucose 112 219 H Random Glucose Calcium Microbiology Microbiology Results: Microbiology 07/16/24 Unknown Urine Culture - Preliminary Urine clean catch - Clean Catch Midstream Enterococcus raffinosus Assessment and Plan (1) Acute UTI: Status: Acute (2) Acute metabolic encephalopathy: Status: Acute Plan Coco Lawson is a 88-year-old woman admitted with:. Acute metabolic encephalopathy due to acute UTI No sepsis Urine culture - Gram-positive cocci Continue ceftriaxone. Dementia/mood disorder On divalproex, trazodone and lorazepam. Maintain sleep-wake cycle [id number] diabetes mellitus ss, ada diet Hypertension On amlodipine, Cardura and losartan Physical deconditioning PT eval and treatment - STR DVT prophylaxis: Lovenox Full code Tried to contact her nephew for update but no answer. Patient is still requiring hospitalization to complete UTI treatment with IV antibiotics; and discharge planning (STR). Quality Stroke Does the patient have a stroke diagnosis?: No VTE Prior VTE?: No VTE Risk Level:: Medical - moderate - high VTE Device Contraindication: Treatment Not Indicated VTE Drug Contraindication: N/A - Med Ordered
--- NOTE | 2024-07-20 15:46 | MHC.CM.PN ---
DP STR transition to LTC. [facility] application is pending. Patient will transport via BLS.
[2024-07-20 16:00] VITALS: BP 100/55; PULSE 55; RESP 18; TEMP 36.4; O2SAT 96
--- NOTE | 2024-07-20 17:50 | HO.WOUND ---
Wound Consult: Initial 88yr old?[place] [facility] [place] - See progress notes and H&P for detailed history.? Wound consult placed for Coccyx.? Patient agreeable to assessment and photo documentation.? Coccyx Etiology: Stage 2 Pressure injury Measurements: see chart for details Wound Bed: Red pink areas of nonblanchable tissue - epidermal lifting noted Drainage / Odor: None Edges: ? mirroed Ashley wound: ?red pink moist tissue - MASD - IAD No Induration, Fluctuance or Warmth noted Pain: tenderness noted Goals of Treatment: ? Triad to protect from friction and moisture discontinue brief and foam dressing as this appears to be trapping moisture Recommend SHREYA Pump added. Recommendations: 1. Turn and Reposition every 2 hours and as needed for patient comfort.? Use pillows or wedges to support off loading positions. 2. Off Load all bony prominences with use of pillows and heel boots if needed.? Apply Preventative foams where needed. ? 3. Monitor for incontinence and moisture control, use barrier creams when needed for prevention and treatment. 4. Provide adequate and supplemental nutrition.? 5. Order low air loss mattress. 6. When applicable maintain blood glucose levels per Providers order. Coccyx - Off Load Pressure with Q2 hr turns and use of pillows - Cleanse with PH balance spray or wipes, pat dry. ?Apply thin layer of Triad to wound bed - only pat and dab no scrub and rub when soiling occurs. Reapply thin layer PRN after each episode of incontinence. Re-consult wound care Nurse for wound deterioration or wound changes.
[2024-07-20] MEDS: Divalproex Sodium ER 250 MG TAB.ER.24H PO (17:57)
[2024-07-20 19:34] VITALS: BP 113/64; PULSE 64; RESP 16; TEMP 36.2; O2SAT 98
[2024-07-20 21:12] VITALS: BP 113/64
[2024-07-20] MEDS: traZODone HCL 50 MG TABLET PO (21:12)
[2024-07-20] MEDS: Doxazosin Mesylate 1 MG TABLET PO (21:12)
[2024-07-20] MEDS: cefTRIAXone sodium 1 GM VIAL IVPUSH (21:13)
[2024-07-20] MEDS: Enoxaparin Sodium 30 MG/0.3 ML SYRINGE SUBCUT (21:13)
[2024-07-21 02:02] LABS: Glucose, Whole Blood 128 mg/dL (60-115)
[2024-07-21 02:02] LABS: Glucose, Whole Blood 109 mg/dL (60-115)
[2024-07-21 03:22] VITALS: BP 128/66; PULSE 62; RESP 16; TEMP 36.7; O2SAT 96
[2024-07-21 07:47] VITALS: BP 149/70; PULSE 60; RESP 18; TEMP 36.3; O2SAT 95
[2024-07-21] MEDS: amLODIPine Besylate 5 MG TABLET PO (08:13)
[2024-07-21] MEDS: Losartan Potassium 50 MG TABLET PO (08:13)
[2024-07-21] MEDS: Atorvastatin Calcium 40 MG TABLET PO (08:13)
[2024-07-21] MEDS: 0.9 % Sodium Chloride Flush 3 ML SYRINGE IVFLUSH ×3 (08:14→21:13)
[2024-07-21 08:36] LABS: Glucose, Whole Blood 108 mg/dL (60-115)
[2024-07-21 11:39] LABS: Glucose, Whole Blood 264 mg/dL (60-115)
[2024-07-21] MEDS: Insulin Lispro 100 UNIT/ML 3 ML VIAL SUBCUT (11:40)
[2024-07-21] MEDS: Divalproex Sodium Sprinkles 125 MG CAP.DR.SPR PO (11:40)
--- NOTE | 2024-07-21 14:00 | P.PNIM_ITS ---
Subjective Subjective Date of Service: 07/21/24 Review of Systems Follow up UTI resting in bed confusion Physical Exam 2 Vital Signs: Vital Signs: Last Vital Signs Temp 97.3 F 07/21/24 07:47 Pulse 60 07/21/24 07:47 Resp 18 07/21/24 07:47 BP 149/70 H 07/21/24 07:47 Pulse Ox 95 07/21/24 07:47 O2 Del Method Room Air 07/21/24 07:47 BMI result Body Mass Index 16.5 Appearing in no acute distress lung sounds are clear to auscultation heart regular rate rhythm, clear S1, S2 positive bowel sounds, abdomen is soft, nontender neuro patient is alert,, confused Objective Data Active Medications Acetaminophen (Acetaminophen 325 Mg Tablet) 650 mg PO Q6H PRN PRN Reason: Pain, Mild 1-3,fever,headache Last Admin: 07/18/24 08:08 Dose: 650 mg Documented By: MURALI Amlodipine Besylate (Amlodipine Besylate 5 Mg Tablet) 5 mg PO DAILY [facility]; Protocol Last Admin: 07/21/24 08:13 Dose: 5 mg Documented By: KRIS Atorvastatin Calcium (Atorvastatin Calcium 40 Mg Tablet) 40 mg PO DAILY [facility] Last Admin: 07/21/24 08:13 Dose: 40 mg Documented By: KRIS Calcium Carbonate (Calcium Carbonate 750 Mg Tab.Chew) 750 mg PO Q4H PRN PRN Reason: Heartburn Ceftriaxone Sodium (Ceftriaxone Sodium 1 Gm Vial) 1 gm IVPUSH Q24H [facility] Last Admin: 07/20/24 21:13 Dose: 1 gm Documented By: WANDER Dextrose (Dextrose 50 % 25 Gm/50 Ml Syringe) 25 gm IVPUSH Q15M PRN; Protocol PRN Reason: per Hypoglycemia Standing Ord. Divalproex Sodium (Divalproex Sodium Sprinkles 125 Mg ) 125 mg PO DAILY@1200 [facility] Last Admin: 07/21/24 11:40 Dose: 125 mg Documented By: KRIS Divalproex Sodium (Divalproex Sodium Er 250 Mg Tab.Er.24h) 250 mg PO DAILY@1800 [facility] Last Admin: 07/20/24 17:57 Dose: 250 mg Documented By: SHON Doxazosin Mesylate (Doxazosin Mesylate 1 Mg Tablet) 1 mg PO BEDTIME [facility] Last Admin: 07/20/24 21:12 Dose: 1 mg Documented By: WANDER Enoxaparin Sodium (Enoxaparin Sodium 30 Mg/0.3 Ml Syringe) 30 mg SUBCUT Q24H [facility] Last Admin: 07/20/24 21:13 Dose: 30 mg Documented By: WANDER Fluticasone Propionate (Fluticasone Propionate Nasal 16 Gm [place]) 1 spray NOSTRIL-B DAILY PRN PRN Reason: Allergy Symptoms Glucose (Glucose Gel 15 Gm Gel..Gram.) 15 gm PO Q15M PRN; Protocol PRN Reason: per Hypoglycemia Standing Ord. Insulin Human Lispro (Insulin Lispro 100 Unit/Ml 3 Ml Vial) 0 unit SUBCUT QIDACHS [facility]; Protocol Last Admin: 07/21/24 11:40 Dose: 6 unit Documented By: KRIS Lorazepam (Lorazepam 0.5 Mg Tablet) 0.25 mg PO DAILY PRN PRN Reason: Anxiety Losartan Potassium (Losartan Potassium 50 Mg Tablet) 50 mg PO DAILY [facility]; Protocol Last Admin: 07/21/24 08:13 Dose: 50 mg Documented By: KRIS Magnesium Hydroxide (Milk Of Magnesia 30 Ml Oral.Susp) 30 ml PO DAILY PRN PRN Reason: Constipation Melatonin (Melatonin 3 Mg Tablet) 6 mg PO BEDTIME PRN PRN Reason: Insomnia Ondansetron HCl (Ondansetron Hcl 4 Mg/2 Ml Vial) 4 mg IVPUSH Q8H PRN PRN Reason: Nausea and Vomiting Sodium Chloride (0.9 % Sodium Chloride Flush 3 Ml Syringe) 3 ml IVFLUSH QSHIFT [facility] Last Admin: 07/21/24 08:14 Dose: 3 ml Documented By: KRIS Trazodone HCl (Trazodone Hcl 50 Mg Tablet) 50 mg PO BEDTIME [facility] Last Admin: 07/20/24 21:12 Dose: 50 mg Documented By: WANDER Labs 07/20/24 06:12 07/20/24 06:12 Labs: Laboratory Results - last 24 hr 07/20/24 07/20/24 07/21/24 16:46 20:14 07:20 POC Glucose 109 128 H 108 07/21/24 11:18 POC Glucose 264 H Microbiology Microbiology Results: Microbiology 07/16/24 Unknown Urine Culture - Preliminary Urine clean catch - Clean Catch Midstream Enterococcus raffinosus Assessment and Plan (1) Acute UTI: Status: Acute (2) Acute metabolic encephalopathy: Status: Acute Plan Coco Lawson is a 88-year-old woman admitted with Acute metabolic encephalopathy due to acute UTI No sepsis Urine culture - Enterococcus raffinosus Continue ceftriaxone. Dementia/mood disorder On divalproex, trazodone and lorazepam. Maintain sleep-wake cycle [id number] diabetes mellitus ss, ada diet Hypertension On amlodipine, Cardura and losartan Physical deconditioning PT eval and treatment - STR DVT prophylaxis: Alec Full code Tried to contact her nephew for update but no answer. Patient is still requiring hospitalization to complete UTI treatment with IV antibiotics; and discharge planning (STR). Quality Stroke Does the patient have a stroke diagnosis?: No VTE Prior VTE?: No VTE Risk Level:: Medical - moderate - high VTE Device Contraindication: Treatment Not Indicated VTE Drug Contraindication: N/A - Med Ordered
[2024-07-21 15:07] VITALS: BP 123/61; PULSE 65; RESP 16; TEMP 37.4; O2SAT 96
[2024-07-21] MEDS: Divalproex Sodium ER 250 MG TAB.ER.24H PO (17:08)
[2024-07-21 17:37] LABS: Glucose, Whole Blood 134 mg/dL (60-115)
[2024-07-21 19:34] VITALS: BP 122/61; PULSE 63; RESP 17; TEMP 36.9; O2SAT 97
[2024-07-21] MEDS: traZODone HCL 50 MG TABLET PO (20:25)
[2024-07-21] MEDS: Doxazosin Mesylate 1 MG TABLET PO (20:25)
[2024-07-21] MEDS: cefTRIAXone sodium 1 GM VIAL IVPUSH (21:13)
[2024-07-21] MEDS: Enoxaparin Sodium 30 MG/0.3 ML SYRINGE SUBCUT (21:14)
[2024-07-21 21:47] LABS: Glucose, Whole Blood 139 mg/dL (60-115)
[2024-07-22 03:18] VITALS: BP 108/58; PULSE 56; RESP 18; TEMP 36.2; O2SAT 100
[2024-07-22 07:14] VITALS: BP 139/60; PULSE 62; RESP 14; TEMP 36.6; O2SAT 96
[2024-07-22] MEDS: Atorvastatin Calcium 40 MG TABLET PO (07:38)
[2024-07-22] MEDS: amLODIPine Besylate 5 MG TABLET PO (07:38)
[2024-07-22 07:39] LABS: Glucose, Whole Blood 100 mg/dL (60-115)
[2024-07-22] MEDS: 0.9 % Sodium Chloride Flush 3 ML SYRINGE IVFLUSH ×3 (07:39→20:17)
[2024-07-22] MEDS: Losartan Potassium 50 MG TABLET PO (07:39)
--- NOTE | 2024-07-22 09:17 | HO.PM.IMPN ---
Subjective Subjective Date of Service: 07/22/24 Review of Systems Follow up UTI resting in bed confusion Physical Exam Vital Signs: Vital Signs: Last Vital Signs Temp 98 F 07/22/24 07:14 Pulse 62 07/22/24 07:14 Resp 14 07/22/24 07:14 BP 139/60 07/22/24 07:14 Pulse Ox 96 07/22/24 07:14 O2 Del Method Room Air 07/22/24 07:14 BMI result Body Mass Index 16.5 Appearing in no acute distress lung sounds are clear to auscultation heart regular rate rhythm, clear S1, S2 positive bowel sounds, abdomen is soft, nontender neuro patient is alert , confused Objective Data Active Medications Acetaminophen (Acetaminophen 325 Mg Tablet) 650 mg PO Q6H PRN PRN Reason: Pain, Mild 1-3,fever,headache Last Admin: 07/18/24 08:08 Dose: 650 mg Documented By: MURALI Amlodipine Besylate (Amlodipine Besylate 5 Mg Tablet) 5 mg PO DAILY [facility]; Protocol Last Admin: 07/22/24 07:38 Dose: 5 mg Documented By: KRIS Atorvastatin Calcium (Atorvastatin Calcium 40 Mg Tablet) 40 mg PO DAILY [facility] Last Admin: 07/22/24 07:38 Dose: 40 mg Documented By: KRIS Calcium Carbonate (Calcium Carbonate 750 Mg Tab.Chew) 750 mg PO Q4H PRN PRN Reason: Heartburn Ceftriaxone Sodium (Ceftriaxone Sodium 1 Gm Vial) 1 gm IVPUSH Q24H [facility] Last Admin: 07/21/24 21:13 Dose: 1 gm Documented By: WANDER Dextrose (Dextrose 50 % 25 Gm/50 Ml Syringe) 25 gm IVPUSH Q15M PRN; Protocol PRN Reason: per Hypoglycemia Standing Ord. Divalproex Sodium (Divalproex Sodium Sprinkles 125 Mg ) 125 mg PO DAILY@1200 [facility] Last Admin: 07/21/24 11:40 Dose: 125 mg Documented By: KRIS Divalproex Sodium (Divalproex Sodium Er 250 Mg Tab.Er.24h) 250 mg PO DAILY@1800 [facility] Last Admin: 07/21/24 17:08 Dose: 250 mg Documented By: KRIS Doxazosin Mesylate (Doxazosin Mesylate 1 Mg Tablet) 1 mg PO BEDTIME [facility] Last Admin: 07/21/24 20:25 Dose: 1 mg Documented By: WANDER Enoxaparin Sodium (Enoxaparin Sodium 30 Mg/0.3 Ml Syringe) 30 mg SUBCUT Q24H [facility] Last Admin: 07/21/24 21:14 Dose: 30 mg Documented By: WANDER Fluticasone Propionate (Fluticasone Propionate Nasal 16 Gm [place]) 1 spray NOSTRIL-B DAILY PRN PRN Reason: Allergy Symptoms Glucose (Glucose Gel 15 Gm Gel..Gram.) 15 gm PO Q15M PRN; Protocol PRN Reason: per Hypoglycemia Standing Ord. Insulin Human Lispro (Insulin Lispro 100 Unit/Ml 3 Ml Vial) 0 unit SUBCUT QIDACHS [facility]; Protocol Last Admin: 07/22/24 07:45 Dose: Not Given Documented By: KRIS Non-Admin Reason: No Insulin Coverage Lorazepam (Lorazepam 0.5 Mg Tablet) 0.25 mg PO DAILY PRN PRN Reason: Anxiety Losartan Potassium (Losartan Potassium 50 Mg Tablet) 50 mg PO DAILY [facility]; Protocol Last Admin: 07/22/24 07:39 Dose: 50 mg Documented By: KRIS Magnesium Hydroxide (Milk Of Magnesia 30 Ml Oral.Susp) 30 ml PO DAILY PRN PRN Reason: Constipation Melatonin (Melatonin 3 Mg Tablet) 6 mg PO BEDTIME PRN PRN Reason: Insomnia Ondansetron HCl (Ondansetron Hcl 4 Mg/2 Ml Vial) 4 mg IVPUSH Q8H PRN PRN Reason: Nausea and Vomiting Sodium Chloride (0.9 % Sodium Chloride Flush 3 Ml Syringe) 3 ml IVFLUSH QSHIFT [facility] Last Admin: 07/22/24 07:39 Dose: 3 ml Documented By: KRIS Trazodone HCl (Trazodone Hcl 50 Mg Tablet) 50 mg PO BEDTIME [facility] Last Admin: 07/21/24 20:25 Dose: 50 mg Documented By: WANDER Labs 07/20/24 06:12 07/20/24 06:12 Labs: Laboratory Results - last 24 hr 07/21/24 07/21/24 07/21/24 11:18 16:10 20:17 POC Glucose 264 H 134 H 139 H 07/22/24 07:17 POC Glucose 100 Assessment and Plan (1) Acute UTI: Status: Acute (2) Acute metabolic encephalopathy: Status: Acute Plan Coco Golba is a 88-year-old woman admitted with Acute metabolic encephalopathy due to acute UTI No sepsis Urine culture - Enterococcus raffinosus Continue ceftriaxone. Dementia/mood disorder On divalproex, trazodone and lorazepam. Maintain sleep-wake cycle Ewu-jybceen-fpzszuach diabetes mellitus ss, ada diet Hypertension On amlodipine, Cardura and losartan Physical deconditioning PT eval and treatment - STR DVT prophylaxis: Lovenox Full code Quality Stroke Does the patient have a stroke diagnosis?: No VTE Prior VTE?: No VTE Risk Level:: Medical - moderate - high VTE Device Contraindication: Treatment Not Indicated VTE Drug Contraindication: N/A - Med Ordered
[2024-07-22 11:40] LABS: Glucose, Whole Blood 129 mg/dL (60-115)
[2024-07-22] MEDS: Divalproex Sodium Sprinkles 125 MG CAP.DR.SPR PO (12:06)
[2024-07-22 15:25] VITALS: BP 136/63; PULSE 61; RESP 18; TEMP 36.6; O2SAT 97
[2024-07-22] MEDS: Divalproex Sodium ER 250 MG TAB.ER.24H PO (17:13)
[2024-07-22 20:00] VITALS: BP 129/61; PULSE 58; RESP 16; TEMP 36.3; O2SAT 97
[2024-07-22] MEDS: traZODone HCL 50 MG TABLET PO (20:17)
[2024-07-22] MEDS: Doxazosin Mesylate 1 MG TABLET PO (20:17)
[2024-07-22] MEDS: Insulin Lispro 100 UNIT/ML 3 ML VIAL SUBCUT (20:29)
--- NOTE | 2024-07-22 20:53 | PC.NURSE ---
2030 blood sugar 167.pt given 2units per sliding scale
[2024-07-22 21:05] LABS: Glucose, Whole Blood 167 mg/dL (60-115)
[2024-07-22 21:05] LABS: Glucose, Whole Blood 103 mg/dL (60-115)
[2024-07-22] MEDS: cefTRIAXone sodium 1 GM VIAL IVPUSH (21:36)
[2024-07-22] MEDS: Enoxaparin Sodium 30 MG/0.3 ML SYRINGE SUBCUT (21:36)
[2024-07-23 03:28] VITALS: BP 123/58; PULSE 56; RESP 14; TEMP 36.1; O2SAT 96
[2024-07-23 07:31] VITALS: BP 119/57; PULSE 63; RESP 12; TEMP 36.1; O2SAT 98
[2024-07-23] MEDS: Atorvastatin Calcium 40 MG TABLET PO (08:07)
[2024-07-23] MEDS: Losartan Potassium 50 MG TABLET PO (08:07)
[2024-07-23] MEDS: amLODIPine Besylate 5 MG TABLET PO (08:08)
[2024-07-23] MEDS: 0.9 % Sodium Chloride Flush 3 ML SYRINGE IVFLUSH ×3 (08:08→21:11)
[2024-07-23 08:13] LABS: Glucose, Whole Blood 96 mg/dL (60-115)
--- NOTE | 2024-07-23 09:28 | PC.NURSE ---
Pt found to have irregular heart rhythm during assessment. Pt has a resolved/inactive history of a-fib. MD notified, no new orders at this time.
[2024-07-23] MEDS: Divalproex Sodium Sprinkles 125 MG CAP.DR.SPR PO (11:42)
[2024-07-23] MEDS: Insulin Lispro 100 UNIT/ML 3 ML VIAL SUBCUT (11:42)
[2024-07-23 11:48] LABS: Glucose, Whole Blood 177 mg/dL (60-115)
--- NOTE | 2024-07-23 12:10 | HO.PM.IMPN ---
Subjective Subjective Date of Service: 07/23/24 Review of Systems Follow up UTI resting in bed confusion Physical Exam Vital Signs: Vital Signs: Last Vital Signs Temp 96.9 F 07/23/24 07:31 Pulse 63 07/23/24 07:31 Resp 12 07/23/24 07:31 BP 119/57 L 07/23/24 07:31 Pulse Ox 98 07/23/24 07:31 O2 Del Method Room Air 07/23/24 07:31 BMI result Body Mass Index 16.5 alert and confused Objective Data Active Medications Acetaminophen (Acetaminophen 325 Mg Tablet) 650 mg PO Q6H PRN PRN Reason: Pain, Mild 1-3,fever,headache Last Admin: 07/18/24 08:08 Dose: 650 mg Documented By: MURALI Amlodipine Besylate (Amlodipine Besylate 5 Mg Tablet) 5 mg PO DAILY [facility]; Protocol Last Admin: 07/23/24 08:08 Dose: 5 mg Documented By: MARGIE Atorvastatin Calcium (Atorvastatin Calcium 40 Mg Tablet) 40 mg PO DAILY [facility] Last Admin: 07/23/24 08:07 Dose: 40 mg Documented By: MARGIE Calcium Carbonate (Calcium Carbonate 750 Mg Tab.Chew) 750 mg PO Q4H PRN PRN Reason: Heartburn Ceftriaxone Sodium (Ceftriaxone Sodium 1 Gm Vial) 1 gm IVPUSH Q24H [facility] Last Admin: 07/22/24 21:36 Dose: 1 gm Documented By: KEO Dextrose (Dextrose 50 % 25 Gm/50 Ml Syringe) 25 gm IVPUSH Q15M PRN; Protocol PRN Reason: per Hypoglycemia Standing Ord. Divalproex Sodium (Divalproex Sodium [place] 125 Mg ) 125 mg PO DAILY@1200 [facility] Last Admin: 07/23/24 11:42 Dose: 125 mg Documented By: MARGIE Divalproex Sodium (Divalproex Sodium Er 250 Mg Tab.Er.24h) 250 mg PO DAILY@1800 [facility] Last Admin: 07/22/24 17:13 Dose: 250 mg Documented By: KRIS Doxazosin Mesylate (Doxazosin Mesylate 1 Mg Tablet) 1 mg PO BEDTIME [facility] Last Admin: 07/22/24 20:17 Dose: 1 mg Documented By: KEO Enoxaparin Sodium (Enoxaparin Sodium 30 Mg/0.3 Ml Syringe) 30 mg SUBCUT Q24H [facility] Last Admin: 07/22/24 21:36 Dose: 30 mg Documented By: KEO Fluticasone Propionate (Fluticasone Propionate Nasal 16 Gm [place]) 1 spray NOSTRIL-B DAILY PRN PRN Reason: Allergy Symptoms Glucose (Glucose Gel 15 Gm Gel..Gram.) 15 gm PO Q15M PRN; Protocol PRN Reason: per Hypoglycemia Standing Ord. Insulin Human Lispro (Insulin Lispro 100 Unit/Ml 3 Ml Vial) 0 unit SUBCUT QIDACHS [facility]; Protocol Last Admin: 07/23/24 11:42 Dose: 2 unit Documented By: MARGIE Lorazepam (Lorazepam 0.5 Mg Tablet) 0.25 mg PO DAILY PRN PRN Reason: Anxiety Losartan Potassium (Losartan Potassium 50 Mg Tablet) 50 mg PO DAILY [facility]; Protocol Last Admin: 07/23/24 08:07 Dose: 50 mg Documented By: MARGIE Magnesium Hydroxide (Milk Of Magnesia 30 Ml Oral.Susp) 30 ml PO DAILY PRN PRN Reason: Constipation Melatonin (Melatonin 3 Mg Tablet) 6 mg PO BEDTIME PRN PRN Reason: Insomnia Ondansetron HCl (Ondansetron Hcl 4 Mg/2 Ml Vial) 4 mg IVPUSH Q8H PRN PRN Reason: Nausea and Vomiting Sodium Chloride (0.9 % Sodium Chloride Flush 3 Ml Syringe) 3 ml IVFLUSH QSHIFT [facility] Last Admin: 07/23/24 08:08 Dose: 3 ml Documented By: MARGIE Trazodone HCl (Trazodone Hcl 50 Mg Tablet) 50 mg PO BEDTIME [facility] Last Admin: 07/22/24 20:17 Dose: 50 mg Documented By: KEO Labs 07/20/24 06:12 07/20/24 06:12 Labs: Laboratory Results - last 24 hr 07/22/24 07/22/24 07/23/24 16:30 20:19 07:43 POC Glucose 103 167 H 96 07/23/24 11:23 POC Glucose 177 H Assessment and Plan (1) Acute UTI: Status: Acute (2) Acute metabolic encephalopathy: Status: Acute Plan Coco Lawson is a 88-year-old woman admitted with Acute metabolic encephalopathy due to acute UTI No sepsis Urine culture - Enterococcus raffinosus Continue ceftriaxone. Dementia/mood disorder On divalproex, trazodone and lorazepam. Maintain sleep-wake cycle Uzy-shhfbzb-chcnrplvt diabetes mellitus ss, ada diet Hypertension On amlodipine, Cardura and losartan Physical deconditioning PT eval and treatment - STR, [facility] application for placement DVT prophylaxis: Lovenox Full code Quality Stroke Does the patient have a stroke diagnosis?: No VTE Prior VTE?: No VTE Risk Level:: Medical - moderate - high VTE Device Contraindication: Treatment Not Indicated VTE Drug Contraindication: N/A - Med Ordered
[2024-07-23 13:26] VITALS: BP 119/57; PULSE 63; O2SAT 98
--- NOTE | 2024-07-23 13:55 | MHC.CLN ---
F/U PT WITH INCREASED NUTRITION RISK R/T PRESSURE INJURY. SKIN WITH STAGE II TO COCCYX. DIET RX: 1800 DM DIET. ADDED GELATEIN BID TO PROMOTE WOUND HEALING. SUPPLEMENT PROVIDES 320 KCALS, 40 G PROTEIN. INTAKE MOST MEALS 25-50%. CURRENT DIET AND SUPPLEMENT APPROPRIATE. MONITOR PO INTAKE AND ENCOURAGE SUPPLEMENTS ABLE.
--- NOTE | 2024-07-23 15:06 | MHC.CM.PN ---
PT continues to recommend STR. Referrals have been sent to local facilities. The Patient will transport via BLS. [facility] application is in progress. CM will follow for bed offers.
[2024-07-23 15:10] VITALS: BP 110/62; PULSE 56; RESP 15; TEMP 36.4; O2SAT 97
[2024-07-23] MEDS: Divalproex Sodium ER 250 MG TAB.ER.24H PO (17:12)
[2024-07-23 18:01] LABS: Glucose, Whole Blood 92 mg/dL (60-115)
[2024-07-23 19:10] VITALS: BP 111/53; PULSE 61; RESP 15; TEMP 36.3; O2SAT 97
[2024-07-23] MEDS: Enoxaparin Sodium 30 MG/0.3 ML SYRINGE SUBCUT (21:10)
[2024-07-23] MEDS: traZODone HCL 50 MG TABLET PO (21:10)
[2024-07-23] MEDS: Doxazosin Mesylate 1 MG TABLET PO (21:10)
[2024-07-23] MEDS: cefTRIAXone sodium 1 GM VIAL IVPUSH (21:11)
[2024-07-23 21:22] LABS: Glucose, Whole Blood 137 mg/dL (60-115)
[2024-07-24 02:48] VITALS: BP 134/62; PULSE 63; RESP 18; TEMP 36.1; O2SAT 97
[2024-07-24 07:17] VITALS: BP 94/60; PULSE 71; RESP 16; TEMP 36.4; O2SAT 98
--- NOTE | 2024-07-24 07:22 | PC.NURSE ---
Pt bp low this AM, 94/60. held amlodipine 5mg and losartan 50mg. MD aware.
[2024-07-24] MEDS: Atorvastatin Calcium 40 MG TABLET PO (07:24)
[2024-07-24] MEDS: 0.9 % Sodium Chloride Flush 3 ML SYRINGE IVFLUSH (07:25)
[2024-07-24 07:57] LABS: Glucose, Whole Blood 108 mg/dL (60-115)
--- NOTE | 2024-07-24 11:03 | MHC.CM.PN ---
IMM 07/24/24 Patients HCP Dwayne has accepted a bed @ [facility] for STR on the Dementia Unit. 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
[2024-07-24] MEDS: Insulin Lispro 100 UNIT/ML 3 ML VIAL SUBCUT (11:44)
[2024-07-24] MEDS: Divalproex Sodium Sprinkles 125 MG CAP.DR.SPR PO (11:45)
[2024-07-24 11:50] LABS: Glucose, Whole Blood 323 mg/dL (60-115)
--- NOTE | 2024-07-24 12:24 | P.DS_ITS ---
DS: Providers Provider Date of Service: 07/24/24 Date of admission: 07/16/24 23:41 Date of discharge: 07/24/24 Primary care physician: Lesly Gutierrez NP Consults: 07/19/24 09:10 Consult to Wound Care Routine Reason for consultation: MASD stage II coccyx Has provider been notified: Yes DS: Diagnosis Discharge Diagnosis (1) Acute UTI: Status: Acute (2) Acute metabolic encephalopathy: Status: Acute DS: Summary Hospital Course Hospital Course: History and physical as per admitting provider. This is a 88-year-old female with pertinent history of dementia, unspecified, history of stroke, hypertension, mixed hyperlipidemia, mood disorder, mac-ikceivf-lzfsunkaw diabetes mellitus who was sent to the emergency department for evaluation of altered mentation. Patient only knows her name at the time of my evaluation. She is disoriented to place and time. Unable to obtain history from the patient. Does complain of urinary hesitancy and urinary odor upon questioning. Unable to obtain review of systems. As per ER provider, patient has been altered from her baseline. Last admitted in April 2024 for encephalopathy due to UTI. 88-year-old woman treated for acute metabolic encephalopathy secondary to urinary tract infection with no sepsis. History of dementia, very pleasant. Urine culture showing Enterococcus refer stenosis. Completed treatment with ceftriaxone. Patient also has a history of dementia and has been on Depakote, trazodone and lorazepam. Plan is to transfer patient to short-term rehab Diabetes mellitus type 2. Treated with sliding scale, continue home medications Hypertension. Stable blood pressure during hospitalization, blood pressure is on the lower side, hold blood pressure medications until blood pressure more reasonable. Less than 30 day stay Time Attestation Discharge Coordination Time (in mins): 42 Quality: Safe Use of Opioids Does Pt have an Active Cancer Diagnosis on the Problem List?: No Quality: Stroke Does the patient have a stroke diagnosis?: No Physical Exam Vital Signs: Vital Signs: Last Vital Signs Temp 97.6 F 07/24/24 07:17 Pulse 71 07/24/24 07:17 Resp 16 07/24/24 07:17 BP 94/60 07/24/24 07:17 Pulse Ox 98 07/24/24 07:17 O2 Del Method Room Air 07/24/24 07:17 BMI result Body Mass Index 16.5 Appearing in no acute distress head is normocephalic atraumatic eyes pupils are PERRLA sclera is anicteric mouth throat mucous membranes are intact and moist neck is supple no lymphadenopathy, no JVD noted lung sounds are clear to auscultation heart regular rate rhythm, clear S1, S2 positive bowel sounds, abdomen is soft, nontender neuro patient is alert, confused DS: Data Data Completed and Pending Labs on day of discharge: Laboratory Results - last 24 hr 07/23/24 07/23/24 07/24/24 16:09 20:58 07:18 POC Glucose 92 137 H 108 07/24/24 11:30 POC Glucose 323 H Preliminary micro results at discharge 07/16/24 Unknown Urine Culture - Preliminary Urine clean catch - Clean Catch Midstream Enterococcus raffinosus Discharge Plan Discharge Anticipated Discharge Date/Time: 07/24/24 12:18 Patient Disposition: Xfer SNF Discharge Diagnosis: Acute metabolic encephalopathy Enterococcus refer stenosis UTI Dementia Referrals: [facility] [Outside] - 1 Week Lesly Gutierrez NP [Primary Care Provider] - 1 Week Discharge Medications: Continued divalproex 125 mg tablet,delayed release (DR/EC) 125 mg PO DAILY@1200 fluticasone propionate 50 mcg/actuation [place],Suspension 1 spray INTRANASAL DAILY PRN (Reason: Allergy Symptoms) Rx Instructions: administer into each nostril divalproex 250 mg tablet extended release 24 hr 250 mg PO DAILY@1800 lorazepam 0.5 mg tablet 0.25 mg PO DAILY PRN (Reason: Anxiety) trazodone 50 mg tablet 50 mg PO BEDTIME metformin 850 mg tablet 850 mg PO BIDWM atorvastatin 40 mg tablet 40 mg PO DAILY terazosin 1 mg capsule 1 mg PO BEDTIME 30 Days Qty: 30 3RF Held losartan 50 mg tablet 50 mg PO DAILY Hold Instructions: Resume on 07/26/24. amlodipine 5 mg tablet 5 mg PO DAILY Hold Instructions: Resume on 07/26/24. Discharge Orders: Discharge Order (Routine); Ordered 07/24/24 Ordered By: Salena Cloud Diet: Advance to usual diet Activity on Discharge: As tolerated Stand Alone Forms: Patient Portal Discharge page Print Language: Spanish Care Plan Goals: Transfer to short-term rehab Health Concerns: Acute metabolic encephalopathy Enterococcus refer stenosis UTI Dementia Plan of Treatment: Follow-up with primary care provider as needed Take all medications as prescribed Assessment: see discharge summary
--- NOTE | 2024-07-25 18:02 | P.CDIM_ITS ---
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 Please review below and update the documentation accordingly. Clinical Indicators: Wound care notes 07/20/24 - Pressure injury Stage 2 coccyx Triad to protect from friction and moisture discontinue brief and foam dressing as this appears to be trapping moisture. Based on the above, could you please provide further information regarding the ulcer/wound/injury: Pressure injury coccyx Stage 2 Other etiology of skin integrity Other (explain) Clinically unable to determine (explain) Thank you, Sherly Isaac, CCS, CDIS Use of terms such as suspected, likely, concern for, or probable (associated with a specific diagnosi s that is being evaluated, monitored, or treated as if it exists) are acceptable and can be coded in the inpatient se tting, when documented at the time of discharge. Please use your independent medical judgment in providing your response. THIS QUERY IS PART OF THE PERMANENT MEDICAL RECORD
--- NOTE | 2024-07-25 18:02 | P.CDIM_ITS ---
PROVIDER RESPONSE TEXT: To clarify, the appropriate diagnosis supported by the clinical indicators: Underweight QUERY TEXT: PHYSICIAN'S DOCUMENTATION REQUEST Date of Query: 07/24/2024 12:09 PM EDT Patient Name: Coco Lawson Admit Date: 07/17/2024 Dear Salena Cloud CLINIC CHARGE NURSE, A review of the medical record indicates additional documentation may be needed. Please review below and update the documentation accordingly. Clinical Indicators: Height: 5 ft Weight: 38.4kg BMI: 16.5 Other Clinical Notes Supporting Significance of the BMI: Clinical nutrition - Moderately malnourished Pt with 23% significant wt loss x 9months with mildly depleted subcutaneous fat and muscle mass. Pt with increased nutrition risk R/T pressure injury and advance age/ Adding Gelatein BID If possible, please provide an associated diagnosis related to the abnormal BMI, such as: Underweight Malnutrition mild, moderate, severe Cachexia Anorexia Other (explain) Clinically unable to determine (explain) Thank you, Sherly Isaac, CCS, CDIS Use of terms such as suspected, likely, concern for, or probable (associated with a specific diagnosi s that is being evaluated, monitored, or treated as if it exists) are acceptable and can be coded in the inpatient se tting, when documented at the time of discharge. Please use your independent medical judgment in providing your response. THIS QUERY IS PART OF THE PERMANENT MEDICAL RECORD
== END 2024-07-24 12:55 | disposition skilled nursing facility (03) | DRG 689 ==
LOC: HO.ED 20:21 → HO.EDOVER 23:45 → HO.S3 07-19 07:27
PROVIDERS: Internal Medicine; Nurse Practitioner Family; Admitting Provider Student in an Organized Health Care Education/Training Program; Emergency Provider Emergency Medicine Emergency Medical Services; PCP Nurse Practitioner Family; Visit Provider Nurse Practitioner Acute Care
DX: N39.0 Urinary tract infection, site not specified (principal); G93.41 Metabolic encephalopathy; Z68.1 Body mass index [BMI] 19.9 or less, adult; E78.2 Mixed hyperlipidemia; I10 Essential (primary) hypertension; Z86.73 Personal history of transient ischemic attack (TIA), and cerebral infarction without residual deficits; B95.2 Enterococcus as the cause of diseases classified elsewhere; F39 Unspecified mood [affective] disorder; R63.6 Underweight; E11.9 Type 2 diabetes mellitus without complications; L89.152 Pressure ulcer of sacral region, stage 2; F03.90 Unspecified dementia, unspecified severity, without behavioral disturbance, psychotic disturbance, mood disturbance, and anxiety; Z20.822 Contact with and (suspected) exposure to COVID-19; Z87.440 Personal history of urinary (tract) infections; Z79.84 Long term (current) use of oral hypoglycemic drugs; Z79.899 Other long term (current) drug therapy
CPT/HCPCS: 0241U; 36415; 80048; 80076; 81001; 82947; 83690; 83735; 85025; 85610; 87086; 87088; 93005; 97110; 97162; 99285; J0696; J1650; J7120

== ENCOUNTER → 2024-07-16 20:01 | Outpatient (BNV) | payer MEDICARE, SELFPAY | PROVIDERS: Admitting Provider Student in an Organized Health Care Education/Training Program; Emergency Provider Emergency Medicine Emergency Medical Services; Visit Provider Internal Medicine Cardiovascular Disease | DX: I49.1 Atrial premature depolarization (principal) | CPT/HCPCS: 93010 ==

== ENCOUNTER → 2024-07-16 23:41 | Outpatient (BNV) | payer MEDICARE, SELFPAY | PROVIDERS: Admitting Provider Student in an Organized Health Care Education/Training Program; Emergency Provider Emergency Medicine Emergency Medical Services; Visit Provider Student in an Organized Health Care Education/Training Program | DX: N39.0 Urinary tract infection, site not specified (principal); G93.41 Metabolic encephalopathy | CPT/HCPCS: 99231; 99232; 99233 ==